=== PATIENT | male | born 1965 | race Caucasian/White ===

== ENCOUNTER 2019-12-31 13:30 | Inpatient (IN) | payer OTHER, MEDICAID, SELFPAY ==
[2019-12-31] VITALS (20 sets, daily range): BP systolic 162–245; BP diastolic 79–121; PULSE 77–109; RESP 14–22; TEMP 36.1–37; O2SAT 96–99; BMI 23.7
--- NOTE | 2019-12-31 13:31 | DI.CT.S_ITS ---
PROCEDURE: CT HEAD/BRAIN WO CON INDICATIONS: new onset seizure TECHNIQUE: Noncontrast 4.5 mm thick angled axial sections acquired from the foramen magnum to the vertex, with coronal and sagittal reformats. For radiation dose reduction, the following was used: automated exposure control, adjustment of mA and/or kV according to patient size. COMPARISON: None. FINDINGS: Image quality: Diagnostic. CSF spaces: Basal cisterns are patent. No extra-axial fluid collections. Ventricles are normal in size and shape. Brain: No midline shift. No intracranial masses or hemorrhage. Rich-white matter interface is normal. Subtle areas of low attenuation are seen within the periventricular and deep white matter of the supratentorial brain. Basal ganglia calcifications are present. Skull and face: Calvarium and visualized facial bones are intact, without suspicious lesions. Sinuses: Moderate mucosal thickening of the right maxillary sinus is present. Otherwise, the imaged paranasal sinuses and mastoid air cells are clear. IMPRESSION: 1. No acute intracranial hemorrhage. 2. Chronic small vessel ischemic changes. Dictated by: Jose Duckworth M.D. on 12/31/2019 at 12:56 Approved by: Jose Duckworth M.D. on 12/31/2019 at 12:57
[2019-12-31 13:48] LABS: Add Manual Diff / Slide Review NO; Basophils Absolute Auto 100 /uL (0-100); Eosinophils Absolute Auto 0 /uL (0-450); Eosinophils Percent Auto 0.3 % (2-4); Hematocrit 32.9 % (41-53); Hemoglobin 10.5 g/dL (13.5-17.5); Lymphocytes Absolute Auto 1700 /uL (1100-4500); Lymphocytes Percent Auto 25.4 % (25-40); Mean Corpuscular HGB Conc 31.9 % (30-36); Mean Corpuscular Hemoglobin 27.9 PG (26-34); Mean Corpuscular Volume 87.6 fL (80-100); Monocytes Absolute Auto 400 /uL (0-900); Monocytes Percent Auto 5.9 % (3-14); Neutrophils Absolute Auto 4400 /uL (1500-7000); Neutrophils Percent Auto 67.4 % (50-75); Platelet Count 213 X10^3/uL (150-400); Red Blood Cell Count 3.75 X10^6/uL (4.5-5.9); Red Cell Distribution Width 16.1 % (11.6-14.8); White Blood Cell Count 6.5 X10^3/uL (4.5-11.0)
[2019-12-31 14:02] LABS: BUN Creatinine Ratio 14.2 (6-22); Blood Urea Nitrogen 22 mg/dL (9-20); Carbon Dioxide 20 mmol/L (22-32); Chloride 110 mmol/L (98-107); Estimated Glomerular Filt Rate 46.6 mL/min (>60); Glucose 79 mg/dL (70-100); HEMOLYSIS < 15 (0-50); Potassium 3.7 mmol/L (3.4-5.1); Sodium 143 mmol/L (137-145)
[2019-12-31 14:19] LABS: Prolactin 24.5 ng/mL (3.7-17.9)
--- NOTE | 2019-12-31 14:37 | ED_ITS ---
HPI - Seizure General Chief Complaint: Seizure Stated Complaint: Decreased LOC Time Seen by Provider: 12/31/19 13:31 Source: patient and EMS Mode of arrival: EMS Limitations: no limitations History of Present Illness HPI Narrative: 54M former smoker, non drinker without known medical history presents by EMS after what sounds like a possible first-time seizure. Medics arrived to find the patient confused and moderately unresponsive but guarding his airway with high blood pressure only. Patient is homeless and was apparently resting on a chair of a person in the neighborhood and they had left him alone for short period and came back to find him unresponsive with some blood coming from his mouth. There is no obvious trauma or fall. The patient denies any alcohol history or recent trauma. By the time they arrived here in the emergency department patient was largely back at his baseline suggesting his unresponsive episode was a postictal phase. MD complaint: possible seizure Onset (ago): minute(s) Description of Episode: loss of consciousness Witnessed: no Trauma: No Seizure History: other Place: home Possible Precipitating Event: none Associated symptoms: denies other symptoms Treatments prior to arrival: none Related Data Allergies Allergy/AdvReac Type Severity Reaction Status Date / Time No Known Drug Allergies Allergy Verified 12/31/19 13:35 Review of Systems Constitutional Constitutional: Denies chills, Denies fatigue, Denies fever(s), Denies frequent falls, Denies lethargy and Denies weakness Eyes Eyes: Denies change in vision, Denies eye discharge, Denies irritation and Denies loss of vision ENT Ears, Nose, Mouth, and Throat: Denies change in voice, Denies dizziness, Denies neck pain, Denies sore throat and Denies throat swelling Cardiovascular Cardiovascular: Denies chest pain, Denies irregular heart rhythm, Denies lightheadedness, Denies palpitations, Denies dyspnea, Denies dyspnea on exertion and Denies orthopnea Respiratory Respiratory: Denies cough, Denies dyspnea, Denies dyspnea on exertion and Denies wheezing Gastrointestinal Gastrointestinal: Denies abdominal pain, Denies change in bowel habits, Denies diarrhea, Denies nausea and Denies vomiting Genitourinary Genitourinary: Denies hematuria, Denies flank pain, Denies urinary incontinence and Denies urinary urgency Musculoskeletal Musculoskeletal: Denies back pain, Denies muscle weakness, Denies neck pain, Denies numbness and Denies tingling Integumentary/Breasts Skin/Breast: Denies pruritus, Denies erythema, Denies rash and Denies wounds Neurologic Neurologic: Denies behavioral changes, Denies confusion, Denies dizziness, Denies frequent falls, Denies loss of vision, Denies numbness, Reports seizure- like activity, Denies tingling and Denies weakness Psychiatric Psychiatric: Denies anxiety, Denies behavioral changes, Denies confusion, Denies depression, Denies homicidal ideation and Denies suicidal ideation Endocrine Endocrine: Denies fatigue, Denies flushing and Denies palpitations Hematologic/Lymphatic Hematologic/Lymphatic: Denies easy bruising Allergic/Immunologic Allergic/Immunologic: Denies urticaria, Denies throat swelling and Denies wheezing Patient History Social History Smoking Status: Current every day smoker Smoking Status: Current every day smoker alcohol intake frequency: holidays/special occasions only Substance Use Type: does not use Exam Narrative Exam Narrative: GENERAL: [54] year old patient appears stated age. Well- nourished, well-developed patient, in mild distress. HEAD: Atraumatic. Normocephalic. EYES: Pupils equal round and reactive. Extraocular motions intact. No scleral icterus. No injection or drainage. ENT: Poor dentition throughout, dried blood on lower lip. Nose without bleeding, purulent drainage. Throat without erythema, tonsillar hypertrophy or exudate. Airway patent. NECK: Trachea midline. Non tender CARDIOVASCULAR: Regular rate and rhythm without murmurs, gallops, or rubs. RESPIRATORY: Clear to auscultation. Breath sounds equal bilaterally. No wheezes, rales, or rhonchi. GASTROINTESTINAL: Abdomen soft, non-tender, nondistended. EXTREMITIES: No edema or joint tenderness. BACK: Nontender without deformity or crepitance. No flank tenderness. NEURO: AOx3. SKIN: No rash or erythema of visible areas Initial Vital Signs Initial Vital Signs: Vital Signs Temperature 98.6 F 12/31/19 13:30 Pulse Rate 97 H 12/31/19 13:30 Respiratory Rate 14 12/31/19 13:30 Blood Pressure 245/121 H 12/31/19 13:30 Pulse Oximetry 98 12/31/19 13:30 Scores GCS Elmo coma scale eye opening: Spontaneous [place] coma scale verbal response: Confused [place] coma scale motor response: Obey commands [place] coma scale total score: 14 Course Course Course Narrative: Patient appears to have had a seizure with no obvious cause though critically elevated blood pressure must be considered. Patient continues to be slightly confused, with repetitive questioning, ongoing headache. He was given labetalol which did not but his blood pressure at all. He does have neurologic symptoms as well as a creatinine up to 1.5. Nicardipine ordered and patient admitted for HTN encephalopathy Orders Ordered: ED Orders 12/31/19 13:31 CT head/brain wo con Stat 12/31/19 13:38 Basic Metabolic Panel Stat Complete Blood Count AUTO DIFF Stat Prolactin Stat 12/31/19 14:35 Urinalysis and Microscopic Stat Nicardipine HCl 25 mg/ Sodium (Chloride) 250 mls @ 50 mls/hr IV TITRATE RAMIN; Protocol Last Admin: 12/31/19 16:12 Dose: 5 mg/hr, 50 mls/hr Documented by: GARFIELD Discontinued Medications Acetaminophen (Tylenol) 975 mg PO NOW ONE Stop: 12/31/19 15:56 Last Admin: 12/31/19 16:11 Dose: 975 mg Documented by: GARFIELD Labetalol HCl (Trandate) 10 mg IV NOW ONE Stop: 12/31/19 15:08 Last Admin: 12/31/19 15:15 Dose: 10 mg Documented by: GARFIELD Vital Signs Vital signs: Vital Signs - 8 hr 12/31/19 13:30 12/31/19 13:31 12/31/19 13:51 Temperature 98.6 F Pulse Rate 97 H 97 H 96 H Respiratory Rate 14 20 16 Blood Pressure 245/121 H Blood Pressure [Left Arm] 245/121 H 242/117 H Pulse Oximetry 98 97 99 12/31/19 15:09 12/31/19 15:15 12/31/19 15:45 Temperature Pulse Rate 94 H 88 77 Respiratory Rate 21 Blood Pressure 239/115 H 209/109 H Blood Pressure [Left Arm] 242/117 H Pulse Oximetry 98 12/31/19 15:46 Temperature Pulse Rate Respiratory Rate Blood Pressure Blood Pressure [Left Arm] 219/109 H Pulse Oximetry MDM - Seizure Lab Data Result diagrams: 12/31/19 13:38 12/31/19 13:38 Labs: Lab Results 12/31/19 12/31/19 12/31/19 Range/Units 13:38 13:38 14:35 WBC 6.5 (4.5-11.0) X10^3/uL RBC 3.75 L (4.5-5.9) X10^6/uL Hgb 10.5 L (13.5-17.5) g/dL Hct 32.9 L (41-53) % MCV 87.6 (80-100) fL MCH 27.9 (26-34) PG MCHC 31.9 (30-36) % RDW 16.1 H (11.6-14.8) % Plt Count 213 (150-400) X10^3/uL Neut % (Auto) 67.4 (50-75) % Lymph % (Auto) 25.4 (25-40) % [place] % (Auto) 5.9 (3-14) % Eos % (Auto) 0.3 L (2-4) % Baso % (Auto) 1.0 (0-2) % Neut # (Auto) 4400 (7136-7107) /uL Lymph # (Auto) 1700 (3284-6149) /uL [place] # (Auto) 400 (0-900) /uL Eos # (Auto) 0 (0-450) /uL Baso # (Auto) 100 (0-100) /uL Sodium 143 (137-145) mmol/L Potassium 3.7 (3.4-5.1) mmol/L Chloride 110 H (98-107) mmol/L Carbon Dioxide 20 L (22-32) mmol/L BUN 22 H (9-20) mg/dL Creatinine 1.55 H (0.66-1.25) mg/dL Estimated GFR 46.6 L (>60) mL/min BUN/Creatinine Ratio 14.2 (6-22) Glucose 79 (70-100) mg/dL Calcium 9.0 (8.4-10.2) mg/dL Prolactin 24.5 H (3.7-17.9) ng/mL Urine Color Yellow Urine Appearance Clear Urine pH 7.0 (4.5-8.0) Ur Specific [place] 1.020 (1.000-1.035) Urine Protein 2+ H (Negative) Urine Glucose (UA) Negative (Negative) g/dL Urine Ketones Negative (NEGATIVE) Urine Occult Blood 1+ H (Negative) Urine Nitrate Negative (Negative) Urine Bilirubin Negative (NEGATIVE) Urine Urobilinogen 0.2 (0.2) E.U./dL Ur Leukocyte Esterase Negative (NEGATIVE) Urine RBC 0-1/hpf (0-5/HPF) Urine WBC None seen (0-5/HPF) Urine Bacteria Occasional (0-1) (None) Urine Sperm Ur Culture Indicated? Cult not indicated Imaging Data CT scan - head: Radiologist's Impression: Chart Viewer Diagnostics DATE TYPE STATUS AUTHOR Hx 12/31/19 13:31 Mac DuckworthdidiGuicho Dewitt, M1 ADM [place], [facility] ED R01 180.34cm 77.111kg BMI: 23.7kg/m? Search Chart No Data to Display No Data to Display ONSET Today 17:09 Guicho Aguilera M 1965 [place] [address] CT Scan Report Signed Patient: Guicho AguileraMR#: [id number] : 1965Acct:[id number] Age/Sex: 54 / MDate of Service: 12/31/19 Loc: ED Accession Number: [id number] Procedure: CT head/brain wo con Ordering Provider: Norberto Sharp D.O. PROCEDURE: CT HEAD/BRAIN WO CON INDICATIONS: new onset seizure TECHNIQUE: Noncontrast 4.5 mm thick angled axial sections acquired from the foramen magnum to the vertex, with coronal and sagittal reformats. For radiation dose reduction, the following was used: automated exposure control, adjustment of mA and/or kV according to patient size. COMPARISON: None. FINDINGS: Image quality: Diagnostic. CSF spaces: Basal cisterns are patent. No extra-axial fluid collections. Ventricles are normal in size and shape. Brain: No midline shift. No intracranial masses or hemorrhage. Rich-white matter interface is normal. Subtle areas of low attenuation are seen within the periventricular and deep white matter of the supratentorial brain. Basal ganglia calcifications are present. Skull and face: Calvarium and visualized facial bones are intact, without suspicious lesions. Sinuses: Moderate mucosal thickening of the right maxillary sinus is present. Otherwise, the imaged paranasal sinuses and mastoid air cells are clear. IMPRESSION: 1. No acute intracranial hemorrhage. 2. Chronic small vessel ischemic changes. Dictated by: Jose Duckworth M.D. on 12/31/2019 at 12:56 Approved by: Jose Duckworth M.D. on 12/31/2019 at 12:57 Discharge Plan Departure Patient Disposition: Admitted As Inpatient Clinical Impression: Encephalopathy, hypertensive Admit Date/Time: 12/31/19 16:15 Admit Provider: Jose Alfredo Palomino ED Sign-out Cosign ED Attending Cosignature Attestation: I was immediately available in the department for consultation. This documentation has been reviewed and I agree with assessment and plan. Supervised by Norberto Sharp DO
[2019-12-31 14:49] LABS: WBC Urine None Seen (0-5/HPF)
[2019-12-31 14:50] LABS: Appearance Urine UA CLEAR; Bilirubin Urine UA NEGATIVE (NEGATIVE); Color Urine UA YELLOW; Glucose Urine UA NEGATIVE (Negative); Ketones Urine UA NEGATIVE (NEGATIVE); Leukocyte Esterase Urine UA NEGATIVE (NEGATIVE); Nitrite Urine UA NEGATIVE (Negative); Occult Blood Urine UA 1+ (Negative); Protein Urine UA 2+ (Negative); Urobilinogen Urine UA 0.2 E.U./dL (0.2)
[2019-12-31 14:58] LABS: Bacteria Urine Occasional (0-1); RBC Urine 0-1/HPF (0-5/HPF)
[2019-12-31 14:59] LABS: Culture Indicated Urine Cult Not Indicated
[2019-12-31] MEDS: LABETALOL 20 MG/4 ML SYRINGE 10 MG IV (15:15)
[2019-12-31] MEDS: ACETAMINOPHEN 325 MG TABLET 975 MG PO (16:11)
[2019-12-31] MEDS: NICARDIPINE 25 MG in SODIUM CHLORIDE 0.9% 240 ML 50 ML IV (16:12)
--- NOTE | 2019-12-31 17:02 | PC.NURSE ---
Pt is sleeping. Chest rise and fall observed
--- NOTE | 2019-12-31 18:55 | PC.NURSE ---
1830- Patient admitted to room 228. Patient is alert and oriented to self. Patient responding to questions. BP 222/103 Nicardipine increased. BP rechecked now 195/82. Lungs are clear to auscultation no distress noted. Seizure pads on bed, Call light given to patient. Bed alarm is on.
--- NOTE | 2019-12-31 20:00 | P.HP_ITS ---
History of Present Illness History of Present Illness Date Patient Seen: 12/31/19 Time Patient Seen: 20:00 Chief complaint: Decreased LOC Narrative: This is a 54-year-old male found unresponsive on a chair either in a friend's yard or a friend's garage. The story has several different versions and the patient is unable to recall any details to clarify. In the emergency department the record states that he was found by someone in the neighborhood sitting in a chair. Additional information is that he was living in someone's garage and when they returned home after a short time away they found him unresponsive. There was no seizures observed and by the time the paramedics arrived he was apparently beginning to behave in a postictal fashion. He was noted to have extremely high blood pressures and so has been tried on labetalol and then a nicardipine drip to bring the blood pressure's down. He continues to be quite confused. He says he has been homeless for about 3 years and lives in no particular location. This contradicts the reports that he is living in someone's garage. He admits to running out of lisinopril 2 days ago and says that he thinks he takes about 5 medications total and ran out of all of them, stopping them simply because he did not get to the point of asking for a refill yet. He is unable to remember the name of his local physician but remembers that it is a female physician in the local community. He knows he has a history of hypertension but cannot recall any other medical history. He says he has had a stroke in the past but has no residual effects. His mother of complications from a stroke. He has no history of seizures or heart disease. The 1st thing he can remember is waking up here in the hospital. He has no recollection of any events today or yesterday. He denies alcohol use on a regular basis saying that he drinks ?hardly at all. He smokes an occasional cigarette along with marijuana and denies all other drugs, specifically denying IV drug use. He appears to have a soft heart murmur that he does not recall hearing about before. He repeatedly falls asleep in a manner typical for a drug ged stupor or a postictal state. He will need a urine drug screen and alcohol level. His workup so far is notable for a negative head CT, mild anemia with a hemoglobin of 10.5 and CKD 3. Further testing including liver function and ammonia levels will be obtained. His prolactin level is slightly elevated for unclear reasons. Patient History Medical History (Updated 12/31/19 @ 20:13 by Joes A Pace MD) CVA (cerebral vascular accident) (Acute) Hypertension (Acute) Surgical History (Updated 12/31/19 @ 20:13 by Jose A Pace MD) History of right inguinal hernia repair (Acute) Family & Social History Family History (Updated 12/31/19 @ 20:14 by Jsoe A Pace MD) Mother CVA (cerebral vascular accident) Father No problems noted. Sister COPD (chronic obstructive pulmonary disease) Social History: household members none Prior Living Arrangements Homeless Safety & Behavioral: Feels Safe in Current Yes Environment Been Physically Hurt or No Threatened By a Person Suicidal Ideation Description None Suicide Plan Description No Plan Tobacco & Substance use: Smoking Status Current every day smoker alcohol intake frequency holiday/special occasion Substance Use Type does not use Comment: He says he drinks alcohol ?hardly at all.? He says he smokes an occas ional cigarette and also marijuana. His backup decision maker is his sister Yulissa Aguilera who lives in [place]. He denies any use of injectable or other illicit drugs. 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 He is unable to articulate his reasons for being homeless. He apparently lives in [place] because he ?has friends here.? Meds Home Medications and Allergies Allergies Allergy/AdvReac Type Severity Reaction Status Date / Time No Known Drug Allergies Allergy Verified 12/31/19 13:35 Review of Systems Review of Systems Narrative: Positive for confusion and headache Negative for fevers, chills, sweats, coughing, chest pain, abdominal pain, nausea, vomiting, rash, bleeding, dysuria, trouble walking, new allergies. ROS: Yes All systems reviewed with the patient and are negative except as oth erwise documented Exam Vital Signs (past 8 hours): - 12/31/19 13:30 12/31/19 13:31 12/31/19 13:51 Temperature 98.6 F Pulse Rate 97 H 97 H 96 H Respiratory Rate 14 20 16 Blood Pressure 245/121 H Blood Pressure [Left Arm] 245/121 H 242/117 H Pulse Oximetry 98 97 99 03/21/20 15:09 12/31/19 15:15 12/31/19 15:45 Temperature Pulse Rate 94 H 88 77 Respiratory Rate 21 Blood Pressure 239/115 H 209/109 H Blood Pressure [Left Arm] 242/117 H Pulse Oximetry 98 12/31/19 15:46 12/31/19 16:59 12/31/19 17:09 Temperature Pulse Rate 77 91 H Respiratory Rate 20 20 Blood Pressure Blood Pressure [Left Arm] 219/109 H 209/99 H 192/93 H Pulse Oximetry 96 99 12/31/19 17:42 12/31/19 18:30 12/31/19 18:45 Temperature 97.0 F L Pulse Rate 86 86 87 Respiratory Rate 22 Blood Pressure 194/107 H 195/102 H Blood Pressure [Left Arm] 175/88 H Pulse Oximetry 12/31/19 19:00 Temperature Pulse Rate 86 Respiratory Rate Blood Pressure 181/84 H Blood Pressure [Left Arm] Pulse Oximetry Oxygen Delivery Method Room Air Narrative Exam Narrative: He is alert and oriented x3 but frequently falls back asleep and does not seem to process/answer the whole question. He seems to be quite engaging and personable. He is in no apparent distress. Pupils are equally round and reactive to light and accommodation. Extraocular muscles are intact. Sclerae are pink and nonicteric. Throat looks normal. No lymph nodes are felt head, neck, supraclavicular area. There is no JVD. No carotid bruits are heard. Heart is regular rate and rhythm with a 1/6 systolic ejection murmur. Lungs are clear to auscultation bilaterally. Extremities have no ankle edema. Abdomen is soft, nontender, no organomegaly. There is very mild but reproducible right lower quadrant tenderness. Skin has no rash or jaundice. There are no needle alegria or picking scabs seen. Neuro exam motor function is 5/5 throughout without hyper reflexia. His responses are exaggerated to touch. Babinski's are downgoing bilaterally. There is no tremor. Gait and balance are not tested. Cranial nerves 2-12 test intact. Objective Labs Result Diagrams: 12/31/19 13:38 12/31/19 13:38 Labs: Laboratory Results - last 24 hr 12/31/19 12/31/19 12/31/19 13:38 13:38 14:35 WBC 6.5 RBC 3.75 L Hgb 10.5 L Hct 32.9 L MCV 87.6 MCH 27.9 MCHC 31.9 RDW 16.1 H Plt Count 213 Neut % (Auto) 67.4 Lymph % (Auto) 25.4 [place] % (Auto) 5.9 Eos % (Auto) 0.3 L Baso % (Auto) 1.0 Neut # (Auto) 4400 Lymph # (Auto) 1700 [place] # (Auto) 400 Eos # (Auto) 0 Baso # (Auto) 100 Sodium 143 Potassium 3.7 Chloride 110 H Carbon Dioxide 20 L BUN 22 H Creatinine 1.55 H Estimated GFR 46.6 L BUN/Creatinine Ratio 14.2 Glucose 79 Calcium 9.0 Prolactin 24.5 H Urine Color Yellow Urine Appearance Clear Urine pH 7.0 Ur Specific [place] 1.020 Urine Protein 2+ H Urine Glucose (UA) Negative Urine Ketones Negative Urine Occult Blood 1+ H Urine Nitrate Negative Urine Bilirubin Negative Urine Urobilinogen 0.2 Ur Leukocyte Esterase Negative Urine RBC 0-1/hpf Urine WBC None seen Urine Bacteria Occasional (0-1) Urine Sperm Ur Culture Indicated? Cult not indicated Assessment & Plan Assessment & Plan narrative: Hypertensive encephalopathy, acute, present on admission -head CT normal, BMP and CBC without clues. -obtain liver function tests, ammonia level, urine drug screen and alcohol level this evening. -his encephalopathy is suggestive of a postictal state versus a drug or alcohol induced stupor -begin Keppra pending further evaluation. -control blood pressure initially with nicardipine drip and then transition back to oral hypertensives -as his mentation clears he may recall more details including his medication doses and names. Paroxysmal hypertensive crisis, acute, present on admission -continue nicardipine and transition back to oral antihypertensives soon. -as his mentation clears he may recall more details including his medication doses and names. Hypertension, chronic, present on admission -unclear status of usual blood pressure control and current medication approach. -research his physician outpatient records when he can recall more information about which office he attends Anemia, acuity unclear, present on admission -no prior CBC available and he does not acknowledge any prior history of anemia -hemoglobin 10.5, repeat 12/31 -he may need GI workup Chronic kidney disease type 3 -likely to be hypertensive in origin, continue blood pressure control efforts. Homelessness -apparently he has acquaintances/friends who allow him to live in their garage? -he does not acknowledge any mental health condition or substance abuse condition that would predispose to homelessness. He cannot articulate, this evening, his reasons for living on the streets the last 3 years.
[2019-12-31] MEDS: SODIUM CHLORIDE 0.9% 1,000 ML 75 ML IV (20:51)
[2019-12-31] MEDS: ONDANSETRON 4 MG/2 ML INJ IV (21:39)
[2019-12-31 21:45] LABS: Ammonia (NH3) < 9 umol/L (9-30)
[2019-12-31 21:46] LABS: Alanine Aminotransferase 34 IU/L (<50); Albumin 3.9 g/dL (3.5-5.0); Albumin Globulin Ratio 0.9 (1.0-2.8); Alkaline Phosphatase 120 U/L (38-126); Aspartate Aminotransferase 58 IU/L (17-59); BUN Creatinine Ratio 15.8 (6-22); Bilirubin Total 0.6 mg/dL (0.2-1.3); Blood Urea Nitrogen 22 mg/dL (9-20); Calcium 8.7 mg/dL (8.4-10.2); Carbon Dioxide 24 mmol/L (22-32); Chloride 109 mmol/L (98-107); Estimated Glomerular Filt Rate 52.9 mL/min (>60); Ethanol (ETOH) < 10 mg/dL; Globulin 4.3 g/dL (1.7-4.1); Glucose 84 mg/dL (70-100); HEMOLYSIS < 15 (0-50); Potassium 3.8 mmol/L (3.4-5.1); Sodium 140 mmol/L (137-145); Total Protein 8.2 g/dL (6.3-8.2)
[2019-12-31 22:13] LABS: UR Morphine/Opiate cutoff 300 Negative (Negative); Ur Creatinine Normal (Normal); Ur Specific Gravity Normal (Normal); Urine Amphetamines Negative (Negative); Urine Cocaine Negative (Negative); Urine Tetrahydrocannabinol Positive (Negative); Urine pH Normal (Normal)
[2019-12-31 22:14] LABS: Urine Barbiturates Negative (Negative); Urine Benzodiazepines Negative (Negative); Urine MDMA Negative (Negative); Urine Methadone Negative (Negative); Urine Methamphetamines Positive (Negative); Urine Oxycodone Negative (Negative); Urine Phencyclidine Negative (Negative); Urine Tricyclic Antidepressant Negative (Negative)
--- NOTE | 2019-12-31 22:49 | DI.ECHO.S_ITS ---
[facility] +---------+ : : [address] : : : : [id number] : : : : Phone: [phone]+ Echocardiogram Report + + :Name: EMMETT FRANCO Study Date: 01/01/2020 Height: 71 in : :[facility] Weight: 170 lb : : Gender: Male BSA: 2.0 m2 : :: 1965 Age: 54 yrs BP: 154/78 mmHg: :Reason For Study: MURMUR : :Ordering Physician: Dr. Gar : :Sanjeev Performed By: Isabelle Marie : :Referring: Jose A WILKINS E : + + Interpretation Summary Left ventricular wall thickness is mild-moderately increased. The left ventricular ejection fraction is normal. There is mild flow acceleration in the left ventricular outflow tract (LVOT) without obstruction which can cause murmur. Otherwise no hemodynamically significant valvular abnormalities. Procedure: A two-dimensional transthoracic echocardiogram with color flow and Doppler was performed. There is no prior echocardiogram noted for this patient. The study quality was technically adequate. The patient was in normal sinus rhythm during the exam. Left Ventricle: The left ventricle is normal in size. Proximal septal thickening is noted. The LVOT velocity is 1.4 m/s. The left ventricular outflow velocity with valsalva is 1.85. Left ventricular wall thickness is mild-moderately increased. The ejection fraction is estimated to be 65-70%. The left ventricular ejection fraction is normal. Global longitudinal peak systolic strain is normal at -18.1%. Diastolic parameters suggest a relaxation abnormality of the left ventricle, consistent with probable normal filling pressures. Right Ventricle: The right ventricle is normal in size and function. Atria: The left atrium is mildly dilated. Right atrial size is normal. There is no Doppler evidence for an interatrial shunt. Mitral Valve: The mitral valve leaflets appear mildly thickened, but open well. There is mild to moderate mitral annular calcification. There is mild mitral regurgitation. Aortic Valve: The aortic valve is trileaflet. The aortic valve opens well. There is mild aortic valve sclerosis. There is no aortic valve stenosis. No aortic regurgitation is present. Tricuspid Valve: The tricuspid valve is normal in structure and function. There is trace tricuspid regurgitation. Pulmonary artery pressures cannot be estimated because of the lack of a measurable TR jet velocity but the IVC suggests a CVP of around 3 mmHg. Pulmonic Valve: The pulmonic valve is normal in structure and function. There is trace pulmonic regurgitation. Great Vessels: The aortic root is normal size. The ascending aorta is mildly enlarged. The IVC is of normal diameter and collapses greater than 50% with a sniff. This suggests a low right atrial pressure of 3 mm Hg. Pericardium/ Pleura There is no pericardial effusion. There is no pleural effusion. MMode/2D Measurements & Calculations LVIDd: 5.1 cm LVOT diam: 2.1 cm LVIDs: 3.6 cm Ao root diam: 3.4 cm FS: 29.6 % asc Aorta Diam: 3.8 cm EPSS: 0.67 cm IVSd: 1.3 cm LVPWd: 1.3 cm LV melendez. diameter/BSA (cm/m^2): 2.6 LV sys. diameter/BSA (cm/m^2): 1.8 LA A2 area: 20.7 cm2 RA long axis: 5.0 cm LA A4 area: 20.7 cm2 RA area: 15.0 cm2 LA length (vol): 5.1 cm RA vol: 38.1 ml LA vol: 71.7 ml RA : 19.4 ml/m2 LA vol index: 36.4 ml/m2 IVC diam: 1.4 cm RVD1 (basal): 3.5 cm TAPSE: 2.6 cm Doppler Measurements & Calculations Ao V2 max: 152.8 cm/sec LVOT Max Morgan: 145.1 cm/sec Ao V2 mean: 104.9 cm/sec LV V1 max P.4 mmHg Ao max P.3 mmHg LV V1 VTI: 29.6 cm Ao mean P.9 mmHg XANDER(I,D): 3.5 cm2 Ao V2 VTI: 29.0 cm XANDER(V,D): 3.2 cm2 sev ratio: 1.0 XANDER indexed to BSA (cm^2/m^2): 1.8 MV E max morgan: 90.2 cm/sec PA V2 max: 133.5 cm/sec MV A max morgan: 113.8 cm/sec PA V2 mean: 88.7 cm/sec MV E/A: 0.79 PA mean P.7 mmHg Med Peak E' Morgan: 3.6 cm/sec PA pr(Accel): 15.2 mmHg E/E' med: 25.2 PA Accel Time: 0.13 sec Lat Peak E' Morgan: 6.3 cm/sec E/E' lat: 14.3 E/e' average: 19.7 MV dec time: 0.19 sec MV P1/2t: 57.8 msec MV P1/2t max morgan: 91.2 cm/sec SV(LVOT): 100.6 ml MVA(2t): 3.8 cm2 Electronically signed by: James Alvarado M.D. on Reading Physician:01/01/2020 12:52 PM
[2019-12-31] MEDS: levETIRAcetam 250 MG TABLET 500 MG PO (23:51)
[2020-01-01] VITALS (25 sets, daily range): BP systolic 149–210; BP diastolic 72–106; PULSE 66–95; RESP 10–18; TEMP 36.1–36.9; O2SAT 97–99
[2020-01-01] MEDS: NICARDIPINE 25 MG in SODIUM CHLORIDE 0.9% 240 ML 25 ML IV ×2 (00:47→13:30)
[2020-01-01 05:21] LABS: Add Manual Diff / Slide Review NO; Basophils Absolute Auto 100 /uL (0-100); Basophils Percent Auto 1.1 % (0-2); Eosinophils Absolute Auto 100 /uL (0-450); Eosinophils Percent Auto 1.3 % (2-4); Hematocrit 31.9 % (41-53); Hemoglobin 10.3 g/dL (13.5-17.5); Lymphocytes Absolute Auto 2200 /uL (1100-4500); Lymphocytes Percent Auto 30.8 % (25-40); Mean Corpuscular HGB Conc 32.4 % (30-36); Mean Corpuscular Hemoglobin 27.9 PG (26-34); Mean Corpuscular Volume 86.3 fL (80-100); Monocytes Absolute Auto 500 /uL (0-900); Monocytes Percent Auto 6.7 % (3-14); Neutrophils Absolute Auto 4300 /uL (1500-7000); Neutrophils Percent Auto 60.1 % (50-75); Platelet Count 210 X10^3/uL (150-400); Red Cell Distribution Width 16.1 % (11.6-14.8); White Blood Cell Count 7.1 X10^3/uL (4.5-11.0)
[2020-01-01 05:31] LABS: Alanine Aminotransferase 32 IU/L (<50); Albumin 3.7 g/dL (3.5-5.0); Albumin Globulin Ratio 0.9 (1.0-2.8); Alkaline Phosphatase 117 U/L (38-126); Aspartate Aminotransferase 54 IU/L (17-59); BUN Creatinine Ratio 15.4 (6-22); Bilirubin Total 0.6 mg/dL (0.2-1.3); Blood Urea Nitrogen 21 mg/dL (9-20); Calcium 8.6 mg/dL (8.4-10.2); Carbon Dioxide 23 mmol/L (22-32); Chloride 112 mmol/L (98-107); Estimated Glomerular Filt Rate 54.2 mL/min (>60); Globulin 4.2 g/dL (1.7-4.1); Glucose 74 mg/dL (70-100); HEMOLYSIS < 15 (0-50); Potassium 3.5 mmol/L (3.4-5.1); Sodium 140 mmol/L (137-145); Total Protein 7.9 g/dL (6.3-8.2)
[2020-01-01] MEDS: ENOXAPARIN 40 MG/0.4 ML SYRINGE SUBCUT (09:22)
[2020-01-01] MEDS: levETIRAcetam 250 MG TABLET 500 MG PO ×2 (09:22→21:01)
[2020-01-01] MEDS: NICOTINE 14 PATCH 14 MG TOP (09:22)
[2020-01-01] MEDS: ASPIRIN EC 81 MG TABLET PO (09:23)
[2020-01-01] MEDS: ATORVASTATIN 20 MG TABLET 40 MG PO (09:23)
[2020-01-01] MEDS: BUPRENORPHINE/NALOXONE 8MG/2MG 1 TAB 3 TAB SL (10:45)
[2020-01-01] MEDS: lisinopriL 20 MG TABLET PO ×2 (10:45→21:01)
[2020-01-01] MEDS: ONDANSETRON 4 MG/2 ML INJ IV ×2 (13:39→17:20)
[2020-01-01] MEDS: ACETAMINOPHEN 325 MG TABLET 650 MG PO (13:40)
--- NOTE | 2020-01-01 14:22 | CM.DPC ---
Addendum entered by Jossy Dumont R.N. 01/01/20 14:47: CM/Rn called [facility] to work on maybe getting patient a hotel voucher for 14 days at D/C to help patient with recovery and help with social isolation for protection from Covid-19- CM/Rn left voice message at [phone] and will check in with them again tomorrow and work on hotel voucher for patient at D/C. Jossy Dumont RN Original Note: DCP Assessment: EMR reviewed: Patient is a 54 yr old male who was admitted for Hypertensive encephalopathy. CM/RN met with patient at the bedside and explained role. Patient was alert and oriented x3 at time of CM/RN visit. Patient states he is independent with all ADLs and could drive if he had a car. Patient is currently homeless but stays at [facility] periodically. Patient states he has no memory of being in someone garage. Patient says I have attempted to work with [employer] and do not qualify for [employer] since I not disabled. CM/Rn asked if patient uses any Drugs or alcohol patient stated he does not take any drugs including marijuana but his toxicology screen came back positive for Marijuana and Methamphetamines. Patient states he has not family or anyone he would consider really close who could help him. CM/Rn will give patient information about homeless resources available to him as well as information about homeless shelters. I Medicaid and Count includes the [facility] Care Plan: D/C plan needed- will attempt [employer] application to help with getting a bottle caser and will give patient homeless information resources- CM will also look into Homeless hotel voucher for patient since he is at high risk for Covid-19 with is health issues. D/C plan working on developing. Jossy Dumont RN Discharge Planning/Care Management CM Discharge Assessment Start: 01/01/20 14:13 Freq: Status: Active Protocol: Document 01/01/20 14:13 (Rec: 01/01/20 14:14 [id number]) Discharge Planning Assessment Assigned Voting Machine Mechanic Jossy Dumont RN Advance Directives? No Advance Directives on File No History Provided By Patient,Medical Record Has Patient been admitted in last 30 No days? Prior Living Arrangements Homeless Comment Currently lives in friends garage. Household Members none Type of transporation used prior to Drives own vehicle admit Independent with ADL's Yes Is patient alert and oriented? Yes Discharge Plan Homeless Jail Whiteboard Updated in Patient Room with Yes name and ext. # of Voting Machine Mechanic Review Status In Process Next Review Type Continued Stay Review
[2020-01-01] MEDS: BUPRENORPHINE/NALOXONE 8MG/2MG 1 TAB SL ×2 (14:42→17:56)
--- NOTE | 2020-01-01 15:07 | P.PN_ITS ---
Subjective Subjective Date Patient Seen: 01/01/20 Interval history: Patient is 54-year-old homeless male admitted with hypertensive crisis and altered mental status after having gone without his medications for several days. He has seizure history and may have been postictal as well. Today he has been awake, cooperative and has no pressing complaints. He is still on low-dose of nicardipine drip and started back on routine meds this a.m.. Exam Vital Signs (past 8 hours): - 01/01/20 08:00 01/01/20 09:00 01/01/20 10:00 Temperature 98.5 F 98.5 F Pulse Rate 95 H 79 82 Respiratory Rate 15 12 16 Blood Pressure 160/85 H 167/83 H 149/79 H Pulse Oximetry 98 97 98 01/01/20 10:45 01/01/20 11:16 01/01/20 12:00 Temperature 97.8 F Pulse Rate 81 84 Respiratory Rate 18 18 Blood Pressure 165/73 H 154/72 H 166/91 H Pulse Oximetry 97 99 01/01/20 13:00 01/01/20 14:08 Temperature Pulse Rate 77 78 Respiratory Rate 17 12 Blood Pressure 164/90 H 178/89 H Pulse Oximetry 97 98 Oxygen Delivery Method Room Air Oxygen Flow Rate 0 Narrative Exam Narrative: General: Alert, pleasant and cooperative male NAD Objective Labs Result Diagrams: 01/01/20 05:03 01/01/20 05:03 Labs: Laboratory Results - last 24 hr 12/31/19 12/31/19 12/31/19 18:30 21:22 21:22 WBC RBC Hgb Hct MCV MCH MCHC RDW Plt Count Neut % (Auto) Lymph % (Auto) O'Brien % (Auto) Eos % (Auto) Baso % (Auto) Neut # (Auto) Lymph # (Auto) O'Brien # (Auto) Eos # (Auto) Baso # (Auto) Sodium 140 Potassium 3.8 Chloride 109 H Carbon Dioxide 24 BUN 22 H Creatinine 1.39 H Estimated GFR 52.9 L BUN/Creatinine Ratio 15.8 Glucose 84 Calcium 8.7 Total Bilirubin 0.6 AST 58 ALT 34 Alkaline Phosphatase 120 Ammonia Total Protein 8.2 Albumin 3.9 Globulin 4.3 H Albumin/Globulin Ratio 0.9 L Nasal Screen MRSA (PCR) Negative for mrsa U Opiates 300ng/mL cut Ur Oxycodone Screen Urine Methadone Screen Ur Barbiturates Screen U Tricyclic Antidepress Ur Phencyclidine Scrn Ur Amphetamines Screen U Methamphetamines Scrn Ur MDMA Scrn (Ecstasy) U Benzodiazepines Scrn Urine Cocaine Screen U Marijuana (THC) Screen Ethyl Alcohol < 10 12/31/19 12/31/19 01/01/20 21:22 22:06 05:03 WBC 7.1 RBC 3.70 L Hgb 10.3 L Hct 31.9 L MCV 86.3 MCH 27.9 MCHC 32.4 RDW 16.1 H Plt Count 210 Neut % (Auto) 60.1 Lymph % (Auto) 30.8 O'Brien % (Auto) 6.7 Eos % (Auto) 1.3 L Baso % (Auto) 1.1 Neut # (Auto) 4300 Lymph # (Auto) 2200 O'Brien # (Auto) 500 Eos # (Auto) 100 Baso # (Auto) 100 Sodium Potassium Chloride Carbon Dioxide BUN Creatinine Estimated GFR BUN/Creatinine Ratio Glucose Calcium Total Bilirubin AST ALT Alkaline Phosphatase Ammonia < 9 L Total Protein Albumin Globulin Albumin/Globulin Ratio Nasal Screen MRSA (PCR) U Opiates 300ng/mL cut Negative Ur Oxycodone Screen Negative Urine Methadone Screen Negative Ur Barbiturates Screen Negative U Tricyclic Antidepress Negative Ur Phencyclidine Scrn Negative Ur Amphetamines Screen Negative U Methamphetamines Scrn Positive H Ur MDMA Scrn (Ecstasy) Negative U Benzodiazepines Scrn Negative Urine Cocaine Screen Negative U Marijuana (THC) Screen Positive H Ethyl Alcohol 01/01/20 05:03 WBC RBC Hgb Hct MCV MCH MCHC RDW Plt Count Neut % (Auto) Lymph % (Auto) O'Brien % (Auto) Eos % (Auto) Baso % (Auto) Neut # (Auto) Lymph # (Auto) O'Brien # (Auto) Eos # (Auto) Baso # (Auto) Sodium 140 Potassium 3.5 Chloride 112 H Carbon Dioxide 23 BUN 21 H Creatinine 1.36 H Estimated GFR 54.2 L BUN/Creatinine Ratio 15.4 Glucose 74 Calcium 8.6 Total Bilirubin 0.6 AST 54 ALT 32 Alkaline Phosphatase 117 Ammonia Total Protein 7.9 Albumin 3.7 Globulin 4.2 H Albumin/Globulin Ratio 0.9 L Nasal Screen MRSA (PCR) U Opiates 300ng/mL cut Ur Oxycodone Screen Urine Methadone Screen Ur Barbiturates Screen U Tricyclic Antidepress Ur Phencyclidine Scrn Ur Amphetamines Screen U Methamphetamines Scrn Ur MDMA Scrn (Ecstasy) U Benzodiazepines Scrn Urine Cocaine Screen U Marijuana (THC) Screen Ethyl Alcohol Assessment & Plan Assessment & Plan narrative: Hypertensive encephalopathy, acute, present on admission -patient is back to normal baseline mentation -head CT normal, BMP and CBC without clues. -ammonia level normal -positive for methamphetamine and marijuana -his encephalopathy is suggestive of a postictal state versus a drug induced stupor -patient restarted on his Keppra and back on home routine to control BP Paroxysmal hypertensive crisis, acute, present on admission -precipitated by running out of his meds and also after affects of seizure -discontinue nicardipine drip -patient states his BP has not been well controlled on current regimen of lisinopril 20 mg b.i.d. -add amlodipine 5 mg HS, continue lisinopril 20 mg b.i.d. -make sure he has refills on his routine medications on discharge Seizure disorder, status post acute seizure, active -patient was postictal and now recovered, he had run out of his Keppra for several days -resumed Keppra 500 mg b.i.d. History of stroke with left hemiparesis, stable -patient had CVA in May 2019 and has some residual weakness on the left side -control BP, continue low-dose aspirin and atorvastatin per home routine Anemia, normocytic, acuity unclear, present on admission -no prior CBC available and he does not acknowledge any prior history of anemia -hemoglobin 10.5, repeat 12/31 10.3 -can be worked up as outpatient with his PCP Chronic kidney disease type 3, stable -likely to be hypertensive in origin, continue blood pressure control efforts. Homelessness -patient states he has been homeless for the past 3 years and does not have a place to stay -he is established with PCP in [place] -social work consult in a.m. Patient with improving hospital course and likely can discharge tomorrow after seen by vp digital marketing social media and crm.
--- NOTE | 2020-01-01 18:00 | PC.NURSE ---
1730- Patient had a episode of N/V. MD notified and orders rec. Medicated per order.
[2020-01-01] MEDS: AMLODIPINE 5 MG TABLET PO (21:06)
[2020-01-01] MEDS: LABETALOL 20 MG/4 ML SYRINGE 5 MG IV (22:31)
[2020-01-02] VITALS (12 sets, daily range): BP systolic 154–227; BP diastolic 78–111; PULSE 61–80; RESP 10–18; TEMP 36.7–36.9; O2SAT 97–100
[2020-01-02] MEDS: BUPRENORPHINE/NALOXONE 8MG/2MG 1 TAB SL ×3 (06:01→18:16)
[2020-01-02] MEDS: AMLODIPINE 5 MG TABLET PO ×2 (08:05→18:15)
[2020-01-02] MEDS: ASPIRIN EC 81 MG TABLET PO (08:06)
[2020-01-02] MEDS: carvediloL 3.125 MG TABLET PO ×2 (08:08→18:16)
[2020-01-02] MEDS: ENOXAPARIN 40 MG/0.4 ML SYRINGE SUBCUT (08:08)
[2020-01-02] MEDS: ATORVASTATIN 20 MG TABLET 40 MG PO (08:08)
[2020-01-02] MEDS: SODIUM CHLORIDE 0.9% FLUSH 10 ML IV (08:09)
[2020-01-02] MEDS: lisinopriL 20 MG TABLET PO ×2 (08:09→18:15)
[2020-01-02] MEDS: levETIRAcetam 250 MG TABLET 500 MG PO ×2 (08:09→18:14)
--- NOTE | 2020-01-02 08:24 | CM.DPNOTE ---
Addendum entered by Jossy Jvaier R.N. 01/02/20 15:21: Spoke with greenhouse specialist with home [facility] community services about expedited CONNIE application and they are reviewing it and will email or call patient since the plan is for him to D/C today. Patient notified . Jossy Javier RN. Original Note: DCP Continued: EMR reviewed: LLOYD/BRIGHT applied for expedited connie for patient through [facility] community [facility] and faxed application to [phone]- LLOYD/RN also gave patient information about community action and the hotel vouchers given to homeless who are at high risk for Covid-19 and gave him the contact phone number. Patient stated understanding. LLOYD/Rn also contacted patients SW with [facility] and left a voice message. Jossy Javier RN
--- NOTE | 2020-01-02 14:41 | PM.DS.1 ---
History of Present Illness History of Present Illness Date Patient Seen: 12/31/19 Chief complaint: Decreased LOC Narrative: Written by Dr. Pace: This is a 54-year-old male found unresponsive on a chair either in a friend's yard or a friend's garage. The story has several different versions and the patient is unable to recall any details to clarify. In the emergency department the record states that he was found by someone in the neighborhood sitting in a chair. Additional information is that he was living in someone's garage and when they returned home after a short time away they found him unresponsive. There was no seizures observed and by the time the paramedics arrived he was apparently beginning to behave in a postictal fashion. He was noted to have extremely high blood pressures and so has been tried on labetalol and then a nicardipine drip to bring the blood pressure's down. He continues to be quite confused. He says he has been homeless for about 3 years and lives in no particular location. This contradicts the reports that he is living in someone's garage. He admits to running out of lisinopril 2 days ago and says that he thinks he takes about 5 medications total and ran out of all of them, stopping them simply because he did not get to the point of asking for a refill yet. He is unable to remember the name of his local physician but remembers that it is a female physician in the local community. He knows he has a history of hypertension but cannot recall any other medical history. He says he has had a stroke in the past but has no residual effects. His mother of complications from a stroke. He has no history of seizures or heart disease. The 1st thing he can remember is waking up here in the hospital. He has no recollection of any events today or yesterday. He denies alcohol use on a regular basis saying that he drinks ?hardly at all. He smokes an occasional cigarette along with marijuana and denies all other drugs, specifically denying IV drug use. He appears to have a soft heart murmur that he does not recall hearing about before. He repeatedly falls asleep in a manner typical for a drugged stupor or a postictal state. He will need a urine drug screen and alcohol level. His workup so far is notable for a negative head CT, mild anemia with a hemoglobin of 10.5 and CKD 3. Further testing including liver function and ammonia levels will be obtained. His prolactin level is slightly elevated for unclear reasons. Discharge Providers Provider Date of admission: 12/31/19 16:15 Discharge Date: 01/02/20 Consults: 01/01/20 08:41 [place] to [facility] [place] Associate Professor Of Biology Routine Comment: pt is homeless x 3 years. Tox screen + methampheta 01/01/20 09:31 Consult to [facility] Associate Professor Of Biology Routine Comment: Discharge provider: Conchita Floyd DO Summary Hospital Course Discharge Diagnosis: 1. Acute metabolic encephalopathy, present on admission. Resolved. 2. Acute hypertensive emergency, present on admission. Resolved. 3. Seizure disorder, status post acute seizure, present on admission. Stable. 4. History of stroke with left hemiparesis. 5. Normocytic anemia, acuity unclear but likely chronic, present on admission. Stable. 6. Chronic kidney disease type 3, present on admission. Stable. 7. Homelessness. Hospital Course: Guicho Aguilera is a 54-year-old male with past medical history significant for hypertension and seizure disorder presented after being found unresponsive. 1. Acute metabolic encephalopathy, present on admission. Resolved. -Possibly secondary to postictal state versus hypertensive encephalopathy. Patient is now back to normal baseline mentation. -CT brain without contrast did not demonstrate any acute intracranial abnormalities. -Ammonia level normal. -Urine toxicology screen positive for methamphetamine and marijuana. Patient adamantly denies methamphetamine use. -Treated underlying causes including hypertension and seizure disorder as below. 2. Acute hypertensive emergency, present on admission. Resolved. -Precipitated by running out of his antihypertensive medication lisinopril. -Patient was placed on nicardipine gtt for acute blood pressure management and slowly titrated off. -Patient states his BP has not been well controlled on current regimen of lisinopril 20 mg twice daily. Continue lisinopril 20 mg twice daily and added amlodipine 5 mg twice daily and carvedilol 3.125 mg twice daily. Patient's blood pressure now better controlled with SBP 150s. -Echocardiogram unremarkable other than mild hypertensive heart disease. -Recommended continue titration up on antihypertensive to control blood pressure closely full workup of resistant hypertension per PCP. 3. Seizure disorder, status post acute seizure, present on admission. Stable. -Precipitated by running out of Keppra. -Patient had seizure prior to admission and was initially postictal. Now recovered. -Continued Keppra 500 mg twice daily. 4. History of stroke with left hemiparesis. -Patient had CVA in May 2019 and has some residual weakness on the left side. -Continued to control blood pressure as above. -Continued low-dose aspirin and atorvastatin per home routine 5. Normocytic anemia, acuity unclear but likely chronic, present on admission. Stable. -No prior CBC available and he does not acknowledge any prior history of anemia. Possibly secondary to chronic kidney disease versus other etiology. -Initial hemoglobin 10.5 and stable. -Recommended outpatient workup of anemia per PCP. 6. Chronic kidney disease type 3, present on admission. Stable. -Likely to be hypertensive in origin and continued to control blood pressure as above. -Avoided nephrotoxic agents. -Continued to monitor renal function periodically. 7. Homelessness. -Patient states he has been homeless for the past 3 years and does not have a place to stay. -He is established with PCP in [place] -[place]ulted [facility] [place] we appreciate her time and care of the patient. Exam Vital Signs (past 8 hours): - 01/02/20 07:43 01/02/20 09:00 01/02/20 10:00 Temperature 98.4 F Pulse Rate 78 Respiratory Rate 12 Blood Pressure 227/111 H 205/104 H 177/96 H Pulse Oximetry 100 01/02/20 11:07 01/02/20 12:00 Temperature Pulse Rate 62 62 Respiratory Rate 17 Blood Pressure 193/96 H 154/78 H Pulse Oximetry 99 98 Oxygen Delivery Method Room Air Oxygen Flow Rate 0 Narrative Exam Narrative: General: Middle-aged male sitting in bed and in no acute distress, appears older than stated age, well-developed, well-nourished, appropriately interactive. HEENT: Normocephalic, atraumatic. External ears without defect. Pupils equal, round, and reactive to light. Anicteric sclerae, moist conjunctivae, and no lid lag. Oropharynx free of erythema and cobble stoning with moist mucosa. Neck: Supple with full range of motion. No jugular venous distension.No lymphadenopathy or thyromegaly. Cardiovascular: Regular rate and rhythm without murmurs, rubs, or gallops appreciated Pulmonary: Clear to auscultation bilaterally without crackles, wheezes, or rhonchi. Normal respiratory effort with no use of accessory muscles. Abdomen: Soft, bowel sounds present, nontender, nondistended. No hepatosplenomegaly or masses appreciated. Extremities: No clubbing or cyanosis. Mild bipedal edema. Skin: Normal temperature, turgor, and texture; no rash, ulcers, or subcutaneous nodules appreciated. Neurological: Cranial nerves grossly intact. Chronic residual mild left-sided weakness. Psychiatric: Normal mood and affect. Alert and oriented to person, place, and time. Objective Labs Result Diagrams: 01/01/20 05:03 01/01/20 05:03 Discharge Plan Discharge Plan Patient Disposition: Home Discharge comment: You are being discharged home. Please follow-up with your primary care physician in the next 1 week regarding your hospitalization for hypertensive emergency and seizure. Your home medications have been restarted. In addition you have been prescribed amlodipine 5 mg twice daily and carvedilol 3.125 mg twice daily for better blood pressure control. Please abstain from smoking. You have been provided resources for fpc and an application has been submitted for expedited [employer]. Discharge orders & Medications Prescriptions: New amlodipine [Norvasc] 5 mg Tablet 5 mg PO BID Qty: 60 RF: 0 carvedilol [Coreg] 3.125 mg Tablet 3.125 mg PO BID Qty: 60 RF: 0 buprenorphine-naloxone 8-2 mg film 2 film BUCCAL Q24H Qty: 30 RF: 0 Continued nicotine 14 mg/24 hr patch 24 hour 14 patch topical DAILY RF: 0 atorvastatin 40 mg tablet 40 mg PO DAILY Qty: 30 RF: 0 levetiracetam 500 mg tablet 500 mg PO BID Qty: 60 RF: 0 lisinopril 20 mg tablet 20 mg PO BID Qty: 60 RF: 0 aspirin 81 mg tablet,delayed release (DR/EC) 81 mg PO DAILY Qty: 30 RF: 0 buprenorphine-naloxone [Suboxone] 8-2 mg film 3 film buccal DAILY Qty: 3 RF: 0 Discontinued buprenorphine-naloxone [Suboxone] 8-2 mg film 3 film buccal DAILY RF: 0 Diet/Activity/Treatments Diet: Diet as Tolerated, Low-fat, Low-sodium and Low-cholesterol Activity: Activity as tolerated Visit Report/Discharge Packet Instructions: The Mediterranean Diet and Good Health, The DASH Diet, Essential Hypertension, Amlodipine (By mouth), Carvedilol (By mouth) Discharges patient from system. Discharge Date/Time: 01/02/20 19:15
--- NOTE | 2020-01-02 15:10 | PC.NURSE ---
Day Shift Patient reported that he was missing two backpacks that hold all I own. Backpacks not present in room although some clothing is. Called pt's contact Messi who denied having the two backpacks and also denied knowledge of their whereabouts. Called ER, lost and found, AND main nurses station - not present at any of these locations. Per admission documentation pt did not arrive to rm [id number] with any backpacks. Charge nurse (Sanket NOVOA) called ambulance companies but no evidence of backpacks per ambulance. Pt updated.
--- NOTE | 2020-01-02 19:30 | PC.NURSE ---
Patient was discharged to [facility]. Resources were provided regarding shelters and local housing options. Patient does not know where his backpack is and was very upset. I tried calling his phone, which is supposedly in the backpack, and left a voicemail asking for anyone who finds the phone to call the hospital. Patient received his 2100 meds before discharge, approved by Dr. Floyd. Patient was advised to follow up with a PCP and given new prescriptions.
== END 2020-01-02 19:15 | disposition home or self-care (01) | DRG 52 ==
LOC: ED 15:02 → AC 17:28 → ICU 01-01 15:19 → AC 01-02 08:51 → ICU 01-02 08:51
PROVIDERS: Family Medicine; Admitting Provider Internal Medicine; Emergency Provider Emergency Medicine; Referring Provider Emergency Medicine; Visit Provider Internal Medicine
DX: I67.4 Hypertensive encephalopathy (principal); I16.9 Hypertensive crisis, unspecified; I12.9 Hypertensive chronic kidney disease with stage 1 through stage 4 chronic kidney disease, or unspecified chronic kidney disease; I69.354 Hemiplegia and hemiparesis following cerebral infarction affecting left non-dominant side; N18.3 Chronic kidney disease, stage 3 (moderate); F17.210 Nicotine dependence, cigarettes, uncomplicated; G40.909 Epilepsy, unspecified, not intractable, without status epilepticus; D64.9 Anemia, unspecified; Z59.0 Homelessness; Z91.128 Patient's intentional underdosing of medication regimen for other reason
CPT/HCPCS: 36415; 70450; 80048; 80053; 80305; 80320; 81001; 82140; 84146; 85025; 87797; 93306; 96374; 99284; J1650; J2405

== ENCOUNTER 2020-03-05 17:23 | Observation (INO) | payer OTHER, MEDICAID, SELFPAY ==
[2019-12-31 19:13] VITALS: BMI 23.7
[2020-03-05] VITALS (10 sets, daily range): BP systolic 148–223; BP diastolic 86–120; PULSE 62–95; RESP 10–21; TEMP 36.3–36.8; O2SAT 98–100; BMI 28.1
--- NOTE | 2020-03-05 17:37 | ED.SEIZURE ---
HPI - Seizure <Marcie GoodBERNARD - Last Filed: 03/05/20 22:01> General Chief Complaint: Seizure Stated Complaint: Seizure Time Seen by Provider: 03/05/20 17:28 History of Present Illness HPI Narrative: 54y homeless male with a history of hypertension, CVA in 2019, and hernia repair, presents to the ED via EMS for a seizure. EMS states patient was at a friend's house when he had a tonic-clonic seizure, friend reports this was witnessed lasted about 4 minutes and was unconscious for a few minutes after the seizure. Patient was incontinent of urine, appeared to have bit his tongue as well. When EMS arrived, patient was awake and alert but postictal. Patient arrives to the emergency department awake and aware of situation (knows he is in the hospital and knows he has had a seizure) and person (name and date), unsure the exact year or specific hospital he is at. Patient states he ran out of his blood pressure medication approximately few days ago. Initially he denied taking anything for seizures but later stated that he does take a medication. Unsure of his primary care provider's name. Patient denies any pain at this time, denies headache, vision changes, chest pain, shortness of breath, nausea, vomiting, abdominal pain, diarrhea, cough, fevers, or any other concerns. Patient was recently admitted here in the hospital for r/o hypertensive encephalopathy from 12/31/19 to 01/02/20. Related Data Home Medications Medication Instructions Recorded Confirmed nicotine 14 patch TOPICAL DAILY 01/01/20 01/01/20 Previous Rx's Medication Instructions Recorded amlodipine [Norvasc] 5 mg PO BID #60 tab 01/02/20 aspirin 81 mg PO DAILY #30 tab 01/02/20 atorvastatin 40 mg PO DAILY #30 tab 01/02/20 buprenorphine-naloxone 2 film BUCCAL Q24H #30 each 01/02/20 buprenorphine-naloxone [Suboxone] 3 film BUCCAL DAILY #3 ea 01/02/20 carvedilol [Coreg] 3.125 mg PO BID #60 tab 01/02/20 levetiracetam 500 mg PO BID #60 tab 01/02/20 lisinopril 20 mg PO BID #60 tab 01/02/20 Allergies Allergy/AdvReac Type Severity Reaction Status Date / Time No Known Drug Allergies Allergy Verified 12/31/19 13:35 Review of Systems <BERNARD Bowman - Last Filed: 03/05/20 22:01> Review of Systems Narrative: REVIEW OF SYSTEMS: GENERAL: Denies fever or chills. HENT: No visual head trauma. EYES: No vision changes. CARDIOVASCULAR: No chest pain. RESPIRATORY: No shortness of breath or cough. GASTROINTESTINAL: No nausea, vomiting, diarrhea, or constipation. GENITOURINARY: No flank pain or dysuria. MUSCULOSKELETAL: No pain, weakness, or deformities. INTEGUMENTARY: No rash, lesions, or pruritus. NEURO: Reports seizures and LOC, see HPI. Patient History <BERNARD Bowman - Last Filed: 03/05/20 22:01> Medical History CVA (cerebral vascular accident) (Acute) Hypertension (Acute) Seizure disorder (Acute) Surgical History History of right inguinal hernia repair (Acute) Family History Mother CVA (cerebral vascular accident) Father No problems noted. Sister COPD (chronic obstructive pulmonary disease) Social History household members: none Smoking Status: Current every day smoker Smoking Status: Current every day smoker alcohol intake frequency: holidays/special occasions only Substance Use Type: does not use Exam <BERNARD Bowman - Last Filed: 03/05/20 22:01> Initial Vital Signs Initial Vital Signs: Vital Signs Temperature 98.3 F 03/05/20 17:27 Pulse Rate 95 H 03/05/20 17:27 Respiratory Rate 16 03/05/20 17:27 Blood Pressure 218/120 H 03/05/20 17:27 Pulse Oximetry 100 03/05/20 17:27 PHYSICAL EXAMINATION: GENERAL: Disheveled, alert, cooperative. Answers questions promptly and appropriately. Vital signs noted. HENT: Normocephalic. Ear canals patent. Small lesion noted to tongue. EYES: PERRLA, EOMIs, conjunctiva pink, sclera white, no periorbital swelling. NECK: Full ROM, no midline or spinal tenderness. CARDIOVASCULAR: S1 and S2 sounds normal. Regular rate and rhythm, no murmurs, clicks, or bruits. RESPIRATORY: Normal respiratory rate, trachea midline, airway patent. No stridor, nasal flaring or accessory muscle use. Lungs are clear in all brower without wheeze, rhonchi, or crackles. MUSCULOSKELETAL: No bruising or deformities. Normal gait and coordination. Equal tone and mass bilaterally. Equal strength bilaterally to upper and lower extremities. No spinal tenderness. EXTREMITIES: CMS intact. Moves all extremities. SKIN: Warm, dry, soft, appropriate color for ethnicity. No lesions, rashes, or wounds to visualized areas. NEURO: Alert and Oriented X 3. GCS: 14 initially and GCS of 15 upon re-evaluation. Good coordination. No ataxia, or sensory deficits, or cognitive issues. Cranial Nerves: II: Visual brower grossly intact. III & IV & : EOMIs V: Able to open and close jaw. VII: Facial movements symetrical. Able to close eyelids tightly. VIII: Hearing grossly intact, adequate balance. X: Uvula pronation intact. XI: Patient is able to shrug shoulders. XII: Patient is able to stick out tongue and move it side to side. PSYCH: Appropriate affect and mood. <Kalyn Marie MD - Last Filed: 03/06/20 04:34> Initial Vital Signs Initial Vital Signs: Vital Signs Temperature 98.3 F 03/05/20 17:27 Pulse Rate 95 H 03/05/20 17:27 Respiratory Rate 16 03/05/20 17:27 Blood Pressure 218/120 H 03/05/20 17:27 Pulse Oximetry 100 03/05/20 17:27 Scores <BERNARD Bowman - Last Filed: 03/05/20 22:01> GCS Phillips coma scale eye opening: Spontaneous Elmo coma scale verbal response: Confused Elmo coma scale motor response: Obey commands Phillips coma scale total score: 14 Course <BERNARD Bowman - Last Filed: 03/05/20 22:01> Course Course Narrative: 2047: I spoke with BERNARD Emery who accepts for admission. Orders Ordered: ED Orders 03/05/20 20:28 EKG-12 Lead Stat 03/05/20 20:48 Urinalysis Screen (Dip Only) Stat Urine Drug Screen, Rapid Stat Urine Microscopic Stat 03/05/20 20:50 Troponin I Stat Acetaminophen (Tylenol) 650 mg PO Q4HR PRN PRN Reason: Fever/Mild Pain (1-3) Al Hydrox/Mg Hydrox/Simethicone (Maalox Plus) 30 ml PO Q6HR PRN PRN Reason: Dyspepsia Amlodipine Besylate (Norvasc) 5 mg PO BID [facility] Aspirin (Aspirin Ec) 81 mg PO DAILY [facility] Atorvastatin Calcium (Lipitor) 40 mg PO BEDTIME [facility] Bisacodyl (Dulcolax) 10 mg OR DAILY PRN PRN Reason: Constipation Carvedilol (Coreg) 3.125 mg PO BIDWM [facility] Docusate Sodium (Colace) 100 mg PO BID PRN PRN Reason: Constipation Heparin Sodium (Porcine) (Heparin) 5,000 unit SUBCUT BID [facility] Sodium Chloride (Normal Saline 0.9%) 1,000 mls @ 100 mls/hr IV CONT [facility] Last Admin: 03/06/20 00:20 Dose: 100 mls/hr Documented by: SHAYY Nicardipine HCl 25 mg/ Sodium (Chloride) 250 mls @ 50 mls/hr IV TITRATE [facility]; Protocol Last Titration: 03/06/20 03:07 Dose: 2 mg/hr, 20 mls/hr Documented by: Titration: 03/06/20 01:06 Dose: 1.5 mg/hr, 15 mls/hr Documented by: Titration: 03/06/20 00:30 Dose: 2 mg/hr, 20 mls/hr Documented by: Titration: 03/05/20 23:56 Dose: 2.5 mg/hr, 25 mls/hr Documented by: Admin: 03/05/20 23:21 Dose: 5 mg/hr, 50 mls/hr Documented by: EUGENIEHIDANA Levetiracetam (Keppra) 500 mg PO BID [facility] Lisinopril (Zestril) 20 mg PO BID [facility] Lorazepam (Ativan) 1 mg IV PRN PRN PRN Reason: Seizure Activity Naloxone HCl (Narcan) 0.2 mg IV Q2MIN PRN PRN Reason: Opiate Reversal Naloxone HCl (Narcan) 0.2 mg IV Q2MIN PRN PRN Reason: Opiate Reversal Non-Formulary Medication (Buprenorphine-Naloxone) 2 film PO Q24H [facility] Last Admin: 03/06/20 00:21 Dose: Not Given Documented by: SHAYY Ondansetron HCl (Zofran) 4 mg IV Q8HR PRN PRN Reason: Nausea And Vomiting Oxycodone HCl (Percolone) 5 mg PO Q4HR PRN PRN Reason: Pain, Moderate (4-6) Last Admin: 03/06/20 00:03 Dose: 5 mg Documented by: SHAYY Pantoprazole Sodium (Protonix) 40 mg IV DAILY RAMIN Discontinued Medications Acetaminophen (Tylenol) 650 mg PO NOW ONE Stop: 03/05/20 19:15 Last Admin: 03/05/20 21:10 Dose: 650 mg Documented by: HOLDEN Dextrose (D50w) 25 gm IV NOW ONE Stop: 03/06/20 00:57 Last Admin: 03/06/20 01:06 Dose: 25 gm Documented by: SHAYY Levetiracetam 1,000 mg/ Sodium (Chloride) 110 mls @ 440 mls/hr IV NOW ONE Stop: 03/05/20 17:35 Last Infusion: 03/06/20 00:40 Dose: 0 mls/hr Documented by: Admin: 03/05/20 18:03 Dose: 440 mls/hr Documented by: HOLDEN Sodium Chloride (Normal Saline 0.9%) 1,000 mls @ 125 mls/hr IV BOLUS ONE Stop: 03/06/20 01:54 Last Admin: 03/05/20 18:03 Dose: 125 mls/hr Documented by: HOLDEN Labetalol HCl (Trandate) 20 mg IV NOW ONE Stop: 03/05/20 17:35 Last Admin: 03/05/20 18:05 Dose: 20 mg Documented by: HOLDEN Labetalol HCl (Trandate) 20 mg IV NOW ONE Stop: 03/05/20 19:14 Last Admin: 03/05/20 20:47 Dose: 20 mg Documented by: HOLDEN Metoprolol Succinate (Toprol Xl) 50 mg PO NOW ONE Stop: 03/05/20 19:14 Last Admin: 03/06/20 00:40 Dose: Not Given Documented by: SHAYY Metoprolol Succinate (Toprol Xl) 25 mg PO NOW ONE Stop: 03/05/20 20:54 Last Admin: 03/05/20 21:57 Dose: 25 mg Documented by: DANIELLA Consultations Consultation #1: Discussed symptoms, test, test results, and plan of care with Dr. Marie. Vital Signs Vital signs: Vital Signs - 8 hr 03/05/20 20:57 Pulse Rate 64 Respiratory Rate 15 Blood Pressure [Right Arm] 222/111 H Pulse Oximetry 99 <Kalyn Marie MD - Last Filed: 03/06/20 04:34> Orders Ordered: ED Orders 03/05/20 20:28 EKG-12 Lead Stat 03/05/20 20:48 Urinalysis Screen (Dip Only) Stat Urine Drug Screen, Rapid Stat Urine Microscopic Stat 03/05/20 20:50 Troponin I Stat Acetaminophen (Tylenol) 650 mg PO Q4HR PRN PRN Reason: Fever/Mild Pain (1-3) Al Hydrox/Mg Hydrox/Simethicone (Maalox Plus) 30 ml PO Q6HR PRN PRN Reason: Dyspepsia Amlodipine Besylate (Norvasc) 5 mg PO BID [facility] Aspirin (Aspirin Ec) 81 mg PO DAILY RAMIN Atorvastatin Calcium (Lipitor) 40 mg PO BEDTIME [facility] Bisacodyl (Dulcolax) 10 mg OR DAILY PRN PRN Reason: Constipation Carvedilol (Coreg) 3.125 mg PO BIDWM RAMIN Docusate Sodium (Colace) 100 mg PO BID PRN PRN Reason: Constipation Heparin Sodium (Porcine) (Heparin) 5,000 unit SUBCUT BID RAMIN Sodium Chloride (Normal Saline 0.9%) 1,000 mls @ 100 mls/hr IV CONT RAMIN Last Admin: 03/06/20 00:20 Dose: 100 mls/hr Documented by: SHAYY Nicardipine HCl 25 mg/ Sodium (Chloride) 250 mls @ 50 mls/hr IV TITRATE RAMIN; Protocol Last Titration: 03/06/20 03:07 Dose: 2 mg/hr, 20 mls/hr Documented by: Titration: 03/06/20 01:06 Dose: 1.5 mg/hr, 15 mls/hr Documented by: Titration: 03/06/20 00:30 Dose: 2 mg/hr, 20 mls/hr Documented by: Titration: 03/05/20 23:56 Dose: 2.5 mg/hr, 25 mls/hr Documented by: Admin: 03/05/20 23:21 Dose: 5 mg/hr, 50 mls/hr Documented by: DANIELLA Levetiracetam (Keppra) 500 mg PO BID [facility] Lisinopril (Zestril) 20 mg PO BID RAMIN Lorazepam (Ativan) 1 mg IV PRN PRN PRN Reason: Seizure Activity Naloxone HCl (Narcan) 0.2 mg IV Q2MIN PRN PRN Reason: Opiate Reversal Naloxone HCl (Narcan) 0.2 mg IV Q2MIN PRN PRN Reason: Opiate Reversal Non-Formulary Medication (Buprenorphine-Naloxone) 2 film PO Q24H RAMIN Last Admin: 03/06/20 00:21 Dose: Not Given Documented by: SHAYY Ondansetron HCl (Zofran) 4 mg IV Q8HR PRN PRN Reason: Nausea And Vomiting Oxycodone HCl (Percolone) 5 mg PO Q4HR PRN PRN Reason: Pain, Moderate (4-6) Last Admin: 03/06/20 00:03 Dose: 5 mg Documented by: SHAYY Pantoprazole Sodium (Protonix) 40 mg IV DAILY RAMIN Discontinued Medications Acetaminophen (Tylenol) 650 mg PO NOW ONE Stop: 03/05/20 19:15 Last Admin: 03/05/20 21:10 Dose: 650 mg Documented by: HOLDEN Dextrose (D50w) 25 gm IV NOW ONE Stop: 03/06/20 00:57 Last Admin: 03/06/20 01:06 Dose: 25 gm Documented by: SHAYY Levetiracetam 1,000 mg/ Sodium (Chloride) 110 mls @ 440 mls/hr IV NOW ONE Stop: 03/05/20 17:35 Last Infusion: 03/06/20 00:40 Dose: 0 mls/hr Documented by: Admin: 03/05/20 18:03 Dose: 440 mls/hr Documented by: HOLDEN Sodium Chloride (Normal Saline 0.9%) 1,000 mls @ 125 mls/hr IV BOLUS ONE Stop: 03/06/20 01:54 Last Admin: 03/05/20 18:03 Dose: 125 mls/hr Documented by: HOLDEN Labetalol HCl (Trandate) 20 mg IV NOW ONE Stop: 03/05/20 17:35 Last Admin: 03/05/20 18:05 Dose: 20 mg Documented by: HOLDEN Labetalol HCl (Trandate) 20 mg IV NOW ONE Stop: 03/05/20 19:14 Last Admin: 03/05/20 20:47 Dose: 20 mg Documented by: HOLDEN Metoprolol Succinate (Toprol Xl) 50 mg PO NOW ONE Stop: 03/05/20 19:14 Last Admin: 03/06/20 00:40 Dose: Not Given Documented by: SHAYY Metoprolol Succinate (Toprol Xl) 25 mg PO NOW ONE Stop: 03/05/20 20:54 Last Admin: 03/05/20 21:57 Dose: 25 mg Documented by: DANIELLA Vital Signs Vital signs: Vital Signs - 8 hr 03/05/20 20:57 Pulse Rate 64 Respiratory Rate 15 Blood Pressure [Right Arm] 222/111 H Pulse Oximetry 99 MDM - Seizure <BERNARD Bowman - Last Filed: 03/05/20 22:01> Medical Records Attestation: I reviewed the patient's medical records. Lab Data Attestation: I reviewed the patient's lab results. Result diagrams: 03/05/20 16:47 03/05/20 16:47 Labs: Lab Results 03/05/20 03/05/20 03/05/20 Range/Units 16:45 16:47 16:47 WBC 6.3 (4.5-11.0) X10^3/uL RBC 3.89 L (4.5-5.9) X10^6/uL Hgb 10.9 L (13.5-17.5) g/dL Hct 32.2 L (41-53) % MCV 82.9 (80-100) fL MCH 28.1 (26-34) PG MCHC 33.9 (30-36) % RDW 15.1 H (11.6-14.8) % Plt Count 210 (150-400) X10^3/uL Neut % (Auto) 60.1 (50-75) % Lymph % (Auto) 30.6 (25-40) % [place] % (Auto) 7.5 (3-14) % Eos % (Auto) 1.0 L (2-4) % Baso % (Auto) 0.8 (0-2) % Neut # (Auto) 3800 (8846-5437) /uL Lymph # (Auto) 1900 (3620-4967) /uL [place] # (Auto) 500 (0-900) /uL Eos # (Auto) 100 (0-450) /uL Baso # (Auto) 100 (0-100) /uL Sodium 140 (137-145) mmol/L Potassium 4.1 (3.4-5.1) mmol/L Chloride 107 (98-107) mmol/L Carbon Dioxide 21 L (22-32) mmol/L BUN 26 H (9-20) mg/dL Creatinine 1.46 H (0.66-1.25) mg/dL Estimated GFR 49.9 L (>60) mL/min BUN/Creatinine Ratio 17.8 (6-22) Glucose 91 (70-100) mg/dL Calcium 9.3 (8.4-10.2) mg/dL Magnesium (1.6-2.3) mg/dL Total Bilirubin 0.4 (0.2-1.3) mg/dL AST 46 (17-59) IU/L ALT 34 (<50) IU/L Alkaline Phosphatase 106 (38-126) U/L Total Creatine Kinase 80 (55-170) U/L CK-MB (CK-2) TNP CK-MB (CK-2) Rel Index TNP Troponin I < 0.012 (0.01-0.034) ng/mL Total Protein 8.7 H (6.3-8.2) g/dL Albumin 4.3 (3.5-5.0) g/dL Globulin 4.4 H (1.7-4.1) g/dL Albumin/Globulin Ratio 1.0 (1.0-2.8) Prolactin (3.7-17.9) ng/mL Urine Color Urine Appearance Urine pH (4.5-8.0) Ur Specific [place] (1.000-1.035) Urine Protein (Negative) Urine Glucose (UA) (Negative) g/dL Urine Ketones (NEGATIVE) Urine Occult Blood (Negative) Urine Nitrate (Negative) Urine Bilirubin (NEGATIVE) Urine Urobilinogen (0.2) E.U./dL Ur Leukocyte Esterase (NEGATIVE) Urine RBC (0-5/HPF) Urine WBC (0-5/HPF) Ur Squamous Epith Cells (0-5/HPF) Urine Bacteria (None) Ur Culture Indicated? U Opiates 300ng/mL cut (Negative) Ur Oxycodone Screen (Negative) Urine Methadone Screen (Negative) Ur Barbiturates Screen (Negative) U Tricyclic Antidepress (Negative) Ur Phencyclidine Scrn (Negative) Ur Amphetamines Screen (Negative) U Methamphetamines Scrn (Negative) Ur MDMA Scrn (Ecstasy) (Negative) U Benzodiazepines Scrn (Negative) Urine Cocaine Screen (Negative) U Marijuana (THC) Screen (Negative) 03/05/20 03/05/20 03/05/20 Range/Units 16:47 20:48 20:48 WBC (4.5-11.0) X10^3/uL RBC (4.5-5.9) X10^6/uL Hgb (13.5-17.5) g/dL Hct (41-53) % MCV (80-100) fL MCH (26-34) PG MCHC (30-36) % RDW (11.6-14.8) % Plt Count (150-400) X10^3/uL Neut % (Auto) (50-75) % Lymph % (Auto) (25-40) % [place] % (Auto) (3-14) % Eos % (Auto) (2-4) % Baso % (Auto) (0-2) % Neut # (Auto) (9359-6127) /uL Lymph # (Auto) (7662-0773) /uL [place] # (Auto) (0-900) /uL Eos # (Auto) (0-450) /uL Baso # (Auto) (0-100) /uL Sodium (137-145) mmol/L Potassium (3.4-5.1) mmol/L Chloride (98-107) mmol/L Carbon Dioxide (22-32) mmol/L BUN (9-20) mg/dL Creatinine (0.66-1.25) mg/dL Estimated GFR (>60) mL/min BUN/Creatinine Ratio (6-22) Glucose (70-100) mg/dL Calcium (8.4-10.2) mg/dL Magnesium 2.4 H (1.6-2.3) mg/dL Total Bilirubin (0.2-1.3) mg/dL AST (17-59) IU/L ALT (<50) IU/L Alkaline Phosphatase (38-126) U/L Total Creatine Kinase (55-170) U/L CK-MB (CK-2) CK-MB (CK-2) Rel Index Troponin I (0.01-0.034) ng/mL Total Protein (6.3-8.2) g/dL Albumin (3.5-5.0) g/dL Globulin (1.7-4.1) g/dL Albumin/Globulin Ratio (1.0-2.8) Prolactin 28.4 H (3.7-17.9) ng/mL Urine Color Yellow Urine Appearance Clear Urine pH 6.0 (4.5-8.0) Ur Specific [place] 1.015 (1.000-1.035) Urine Protein 1+ H (Negative) Urine Glucose (UA) Negative (Negative) g/dL Urine Ketones Negative (NEGATIVE) Urine Occult Blood 1+ H (Negative) Urine Nitrate Negative (Negative) Urine Bilirubin Negative (NEGATIVE) Urine Urobilinogen 0.2 (0.2) E.U./dL Ur Leukocyte Esterase Negative (NEGATIVE) Urine RBC 1-5/hpf (0-5/HPF) Urine WBC 0-1/hpf (0-5/HPF) Ur Squamous Epith Cells 0-1 /hpf (0-5/HPF) Urine Bacteria None seen (None) Ur Culture Indicated? Cult not indicated U Opiates 300ng/mL cut Negative (Negative) Ur Oxycodone Screen Negative (Negative) Urine Methadone Screen Negative (Negative) Ur Barbiturates Screen Negative (Negative) U Tricyclic Antidepress Negative (Negative) Ur Phencyclidine Scrn Negative (Negative) Ur Amphetamines Screen Negative (Negative) U Methamphetamines Scrn Positive H (Negative) Ur MDMA Scrn (Ecstasy) Negative (Negative) U Benzodiazepines Scrn Negative (Negative) Urine Cocaine Screen Negative (Negative) U Marijuana (THC) Screen Positive H (Negative) 03/05/ Range/Units 20:50 WBC (4.5-11.0) X10^3/uL RBC (4.5-5.9) X10^6/uL Hgb (13.5-17.5) g/dL Hct (41-53) % MCV (80-100) fL MCH (26-34) PG MCHC (30-36) % RDW (11.6-14.8) % Plt Count (150-400) X10^3/uL Neut % (Auto) (50-75) % Lymph % (Auto) (25-40) % [place] % (Auto) (3-14) % Eos % (Auto) (2-4) % Baso % (Auto) (0-2) % Neut # (Auto) (8176-4548) /uL Lymph # (Auto) (3143-6940) /uL [place] # (Auto) (0-900) /uL Eos # (Auto) (0-450) /uL Baso # (Auto) (0-100) /uL Sodium (137-145) mmol/L Potassium (3.4-5.1) mmol/L Chloride (98-107) mmol/L Carbon Dioxide (22-32) mmol/L BUN (9-20) mg/dL Creatinine (0.66-1.25) mg/dL Estimated GFR (>60) mL/min BUN/Creatinine Ratio (6-22) Glucose (70-100) mg/dL Calcium (8.4-10.2) mg/dL Magnesium (1.6-2.3) mg/dL Total Bilirubin (0.2-1.3) mg/dL AST (17-59) IU/L ALT (<50) IU/L Alkaline Phosphatase (38-126) U/L Total Creatine Kinase (55-170) U/L CK-MB (CK-2) CK-MB (CK-2) Rel Index Troponin I 0.013 (0.01-0.034) ng/mL Total Protein (6.3-8.2) g/dL Albumin (3.5-5.0) g/dL Globulin (1.7-4.1) g/dL Albumin/Globulin Ratio (1.0-2.8) Prolactin (3.7-17.9) ng/mL Urine Color Urine Appearance Urine pH (4.5-8.0) Ur Specific [place] (1.000-1.035) Urine Protein (Negative) Urine Glucose (UA) (Negative) g/dL Urine Ketones (NEGATIVE) Urine Occult Blood (Negative) Urine Nitrate (Negative) Urine Bilirubin (NEGATIVE) Urine Urobilinogen (0.2) E.U./dL Ur Leukocyte Esterase (NEGATIVE) Urine RBC (0-5/HPF) Urine WBC (0-5/HPF) Ur Squamous Epith Cells (0-5/HPF) Urine Bacteria (None) Ur Culture Indicated? U Opiates 300ng/mL cut (Negative) Ur Oxycodone Screen (Negative) Urine Methadone Screen (Negative) Ur Barbiturates Screen (Negative) U Tricyclic Antidepress (Negative) Ur Phencyclidine Scrn (Negative) Ur Amphetamines Screen (Negative) U Methamphetamines Scrn (Negative) Ur MDMA Scrn (Ecstasy) (Negative) U Benzodiazepines Scrn (Negative) Urine Cocaine Screen (Negative) U Marijuana (THC) Screen (Negative) Imaging Data Chest x-ray: Radiologist's Impression: [address] [address] XRay Report Signed Patient: Guicho Aguilera MAGGIER#: [id number] : 1965Acct:[id number] Age/Sex: 54 / MDate of Service: 03/05/20 Loc: ED Accession Number: [id number] Procedure: XR chest 1V Ordering Provider: Marcie Good PROCEDURE: XR CHEST 1V INDICATIONS: Chest pain TECHNIQUE: One view of the chest was acquired. COMPARISON: None. FINDINGS: Surgical changes and devices: None. Lungs and pleura: Lungs are clear. No pleural effusions or pneumothorax. Mediastinum: Mediastinal contours appear normal. Heart size is normal. Bones and chest wall: No suspicious bony lesions. Overlying soft tissues appear unremarkable. IMPRESSION: No acute cardiopulmonary pathology. Dictated by: Ronn Melchor M.D. on 03/05/2020 at 18:25 Approved by: Ronn Melchor M.D. on 03/05/2020 at 18:25 CT scan - head: Radiologist's Impression: [address] [address] [address] Scan Report Signed Patient: Guicho Aguilera MAGGIER#: [id number] : 1965Acct:[id number] Age/Sex: 54 / MDate of Service: 03/05/20 Loc: ED Accession Number: [id number] Procedure: CT head/brain wo con Ordering Provider: Marcie Good PROCEDURE: CT HEAD/BRAIN WO CON INDICATIONS: Seizure versus hypertensive crisis TECHNIQUE: Noncontrast 4.5 mm thick angled axial sections acquired from the foramen magnum to the vertex, with coronal and sagittal reformats. For radiation dose reduction, the following was used: automated exposure control, adjustment of mA and/or kV according to patient size. COMPARISON: [facility], CT, CT HEAD/BRAIN WO CON, 12/31/2019, 13:34. FINDINGS: Image quality: Excellent. CSF spaces: Basal cisterns are patent. No extra-axial fluid collections. The ventricles are symmetric in size and shape. Brain: No intracranial bleeds or masses. There is cerebral volume loss for age, with resultant ventricular and sulcal prominence. There are periventricular and deep white matter chronic small vessel ischemic changes. There is intracranial internal carotid artery atherosclerosis. Skull and face: Calvarium and visualized facial bones appear intact, without suspicious lesions. Sinuses: Mucosal thickening in right ethmoid and maxillary sinuses are seen. Bilateral mastoids are well aerated. IMPRESSION: 1. No CT evidence of acute intracranial pathology. No significant changes from previous study. 2. Right-sided ethmoid and maxillary sinusitis. Dictated by: Ronn Melchor M.D. on 03/05/2020 at 18:23 Approved by: Ronn Melchor M.D. on 03/05/2020 at 18:24 ECG Data Interpretation: 1744: Sinus rhythm, rate 85, OR interval 170, QTC 471. 1mm ST elevation noted to V3, possible 0.5 mm elevation V2. No ST depression or T-wave inversion. EKG also viewed by Dr. Marie. No prior comparable studies. 2039: Normal sinus rhythm, rate 73, OR interval 172, QTC 463. 1-2 mm elevation noted to be 3, 0.5 mm elevation in V2. No ST depression. No T-wave inversion. EKG also viewed by DR. Marie per protocol. [facility] Narrative Medical decision making narrative: 54-year-old male is currently homeless with a history of hypertensive crisis and CVA presents to emergency department EMS for a witnessed siezure. Differential includes organic epileptic seizure versus hypertensive crisis/hypertensive encephalopathy, patient has had this happen in the past and was recently admitted in December for similar. While this may be an epileptic seizure, hypertensive crisis cannot be ruled out especially as patient has significant elevated hypertension, headache, and is currently homeless without medications. Patient has elevated procalcitonin as well. Patient was admitted for further workup and management. Less likely intracranial bleed due to lack of changes on CT. Patient did have did have some slight ST elevations in V2 and possible V1, serial troponins within normal limits related to acute hypertension. This also may be some rebound hypertension due to recently running out of prescriptions for blood pressure. No prior EKGs for comparison. Differential also includes possible drug-induced, however, less likely, due to lack of other concerning symptoms such as sedation, hyperthermia, or delayed pupillary response. Patient's U tox positive for methamphetamines. Less concern for infection due to lack of systemic symptoms, fevers, and normal white blood cell count. <Kalyn Marie MD - Last Filed: 03/06/20 04:34> Lab Data Labs: Lab Results 03/05/20 03/05/20 03/05/20 Range/Units 16:45 16:47 16:47 WBC 6.3 (4.5-11.0) X10^3/uL RBC 3.89 L (4.5-5.9) X10^6/uL Hgb 10.9 L (13.5-17.5) g/dL Hct 32.2 L (41-53) % MCV 82.9 (80-100) fL MCH 28.1 (26-34) PG MCHC 33.9 (30-36) % RDW 15.1 H (11.6-14.8) % Plt Count 210 (150-400) X10^3/uL Neut % (Auto) 60.1 (50-75) % Lymph % (Auto) 30.6 (25-40) % [place] % (Auto) 7.5 (3-14) % Eos % (Auto) 1.0 L (2-4) % Baso % (Auto) 0.8 (0-2) % Neut # (Auto) 3800 (3120-8170) /uL Lymph # (Auto) 1900 (4101-0718) /uL [place] # (Auto) 500 (0-900) /uL Eos # (Auto) 100 (0-450) /uL Baso # (Auto) 100 (0-100) /uL Sodium 140 (137-145) mmol/L Potassium 4.1 (3.4-5.1) mmol/L Chloride 107 (98-107) mmol/L Carbon Dioxide 21 L (22-32) mmol/L BUN 26 H (9-20) mg/dL Creatinine 1.46 H (0.66-1.25) mg/dL Estimated GFR 49.9 L (>60) mL/min BUN/Creatinine Ratio 17.8 (6-22) Glucose 91 (70-100) mg/dL Calcium 9.3 (8.4-10.2) mg/dL Magnesium (1.6-2.3) mg/dL Total Bilirubin 0.4 (0.2-1.3) mg/dL AST 46 (17-59) IU/L ALT 34 (<50) IU/L Alkaline Phosphatase 106 (38-126) U/L Total Creatine Kinase 80 (55-170) U/L CK-MB (CK-2) TNP CK-MB (CK-2) Rel Index TNP Troponin I < 0.012 (0.01-0.034) ng/mL Total Protein 8.7 H (6.3-8.2) g/dL Albumin 4.3 (3.5-5.0) g/dL Globulin 4.4 H (1.7-4.1) g/dL Albumin/Globulin Ratio 1.0 (1.0-2.8) Prolactin (3.7-17.9) ng/mL Urine Color Urine Appearance Urine pH (4.5-8.0) Ur Specific [place] (1.000-1.035) Urine Protein (Negative) Urine Glucose (UA) (Negative) g/dL Urine Ketones (NEGATIVE) Urine Occult Blood (Negative) Urine Nitrate (Negative) Urine Bilirubin (NEGATIVE) Urine Urobilinogen (0.2) E.U./dL Ur Leukocyte Esterase (NEGATIVE) Urine RBC (0-5/HPF) Urine WBC (0-5/HPF) Ur Squamous Epith Cells (0-5/HPF) Urine Bacteria (None) Ur Culture Indicated? U Opiates 300ng/mL cut (Negative) Ur Oxycodone Screen (Negative) Urine Methadone Screen (Negative) Ur Barbiturates Screen (Negative) U Tricyclic Antidepress (Negative) Ur Phencyclidine Scrn (Negative) Ur Amphetamines Screen (Negative) U Methamphetamines Scrn (Negative) Ur MDMA Scrn (Ecstasy) (Negative) U Benzodiazepines Scrn (Negative) Urine Cocaine Screen (Negative) U Marijuana (THC) Screen (Negative) 03/05/20 03/05/20 03/05/20 Range/Units 16:47 20:48 20:48 WBC (4.5-11.0) X10^3/uL RBC (4.5-5.9) X10^6/uL Hgb (13.5-17.5) g/dL Hct (41-53) % MCV (80-100) fL MCH (26-34) PG MCHC (30-36) % RDW (11.6-14.8) % Plt Count (150-400) X10^3/uL Neut % (Auto) (50-75) % Lymph % (Auto) (25-40) % [place] % (Auto) (3-14) % Eos % (Auto) (2-4) % Baso % (Auto) (0-2) % Neut # (Auto) (0328-5920) /uL Lymph # (Auto) (7325-2206) /uL [place] # (Auto) (0-900) /uL Eos # (Auto) (0-450) /uL Baso # (Auto) (0-100) /uL Sodium (137-145) mmol/L Potassium (3.4-5.1) mmol/L Chloride (98-107) mmol/L Carbon Dioxide (22-32) mmol/L BUN (9-20) mg/dL Creatinine (0.66-1.25) mg/dL Estimated GFR (>60) mL/min BUN/Creatinine Ratio (6-22) Glucose (70-100) mg/dL Calcium (8.4-10.2) mg/dL Magnesium 2.4 H (1.6-2.3) mg/dL Total Bilirubin (0.2-1.3) mg/dL AST (17-59) IU/L ALT (<50) IU/L Alkaline Phosphatase (38-126) U/L Total Creatine Kinase (55-170) U/L CK-MB (CK-2) CK-MB (CK-2) Rel Index Troponin I (0.01-0.034) ng/mL Total Protein (6.3-8.2) g/dL Albumin (3.5-5.0) g/dL Globulin (1.7-4.1) g/dL Albumin/Globulin Ratio (1.0-2.8) Prolactin 28.4 H (3.7-17.9) ng/mL Urine Color Yellow Urine Appearance Clear Urine pH 6.0 (4.5-8.0) Ur Specific [place] 1.015 (1.000-1.035) Urine Protein 1+ H (Negative) Urine Glucose (UA) Negative (Negative) g/dL Urine Ketones Negative (NEGATIVE) Urine Occult Blood 1+ H (Negative) Urine Nitrate Negative (Negative) Urine Bilirubin Negative (NEGATIVE) Urine Urobilinogen 0.2 (0.2) E.U./dL Ur Leukocyte Esterase Negative (NEGATIVE) Urine RBC 1-5/hpf (0-5/HPF) Urine WBC 0-1/hpf (0-5/HPF) Ur Squamous Epith Cells 0-1 /hpf (0-5/HPF) Urine Bacteria None seen (None) Ur Culture Indicated? Cult not indicated U Opiates 300ng/mL cut Negative (Negative) Ur Oxycodone Screen Negative (Negative) Urine Methadone Screen Negative (Negative) Ur Barbiturates Screen Negative (Negative) U Tricyclic Antidepress Negative (Negative) Ur Phencyclidine Scrn Negative (Negative) Ur Amphetamines Screen Negative (Negative) U Methamphetamines Scrn Positive H (Negative) Ur MDMA Scrn (Ecstasy) Negative (Negative) U Benzodiazepines Scrn Negative (Negative) Urine Cocaine Screen Negative (Negative) U Marijuana (THC) Screen Positive H (Negative) 05/25/20 Range/Units 20:50 WBC (4.5-11.0) X10^3/uL RBC (4.5-5.9) X10^6/uL Hgb (13.5-17.5) g/dL Hct (41-53) % MCV (80-100) fL MCH (26-34) PG MCHC (30-36) % RDW (11.6-14.8) % Plt Count (150-400) X10^3/uL Neut % (Auto) (50-75) % Lymph % (Auto) (25-40) % [place] % (Auto) (3-14) % Eos % (Auto) (2-4) % Baso % (Auto) (0-2) % Neut # (Auto) (5830-7607) /uL Lymph # (Auto) (2465-4078) /uL [place] # (Auto) (0-900) /uL Eos # (Auto) (0-450) /uL Baso # (Auto) (0-100) /uL Sodium (137-145) mmol/L Potassium (3.4-5.1) mmol/L Chloride (98-107) mmol/L Carbon Dioxide (22-32) mmol/L BUN (9-20) mg/dL Creatinine (0.66-1.25) mg/dL Estimated GFR (>60) mL/min BUN/Creatinine Ratio (6-22) Glucose (70-100) mg/dL Calcium (8.4-10.2) mg/dL Magnesium (1.6-2.3) mg/dL Total Bilirubin (0.2-1.3) mg/dL AST (17-59) IU/L ALT (<50) IU/L Alkaline Phosphatase (38-126) U/L Total Creatine Kinase (55-170) U/L CK-MB (CK-2) CK-MB (CK-2) Rel Index Troponin I 0.013 (0.01-0.034) ng/mL Total Protein (6.3-8.2) g/dL Albumin (3.5-5.0) g/dL Globulin (1.7-4.1) g/dL Albumin/Globulin Ratio (1.0-2.8) Prolactin (3.7-17.9) ng/mL Urine Color Urine Appearance Urine pH (4.5-8.0) Ur Specific [place] (1.000-1.035) Urine Protein (Negative) Urine Glucose (UA) (Negative) g/dL Urine Ketones (NEGATIVE) Urine Occult Blood (Negative) Urine Nitrate (Negative) Urine Bilirubin (NEGATIVE) Urine Urobilinogen (0.2) E.U./dL Ur Leukocyte Esterase (NEGATIVE) Urine RBC (0-5/HPF) Urine WBC (0-5/HPF) Ur Squamous Epith Cells (0-5/HPF) Urine Bacteria (None) Ur Culture Indicated? U Opiates 300ng/mL cut (Negative) Ur Oxycodone Screen (Negative) Urine Methadone Screen (Negative) Ur Barbiturates Screen (Negative) U Tricyclic Antidepress (Negative) Ur Phencyclidine Scrn (Negative) Ur Amphetamines Screen (Negative) U Methamphetamines Scrn (Negative) Ur MDMA Scrn (Ecstasy) (Negative) U Benzodiazepines Scrn (Negative) Urine Cocaine Screen (Negative) U Marijuana (THC) Screen (Negative) Discharge Plan Departure Patient Disposition: Admitted As Inpatient Clinical Impression: Encephalopathy, hypertensive, Hypertensive crisis Hypertension Qualifiers: Hypertension type: essential hypertension Qualified Code(s): I10 - Essential (primary) hypertension Discharge Date/Time: 03/05/20 21:19 Admit Date/Time: 03/05/20 21:15 Admit Provider: Vahe Hou <Kalyn Marie MD - Last Filed: 03/06/20 04:34> Cosign ED Attending Cosignature Attestation: I was immediately available in the department for consultation throughout this patient's visit. I agree with documentation as above. Kalyn Marie MD
--- NOTE | 2020-03-05 17:43 | DI.CT.S_ITS ---
PROCEDURE: CT HEAD/BRAIN WO CON INDICATIONS: Seizure versus hypertensive crisis TECHNIQUE: Noncontrast 4.5 mm thick angled axial sections acquired from the foramen magnum to the vertex, with coronal and sagittal reformats. For radiation dose reduction, the following was used: automated exposure control, adjustment of mA and/or kV according to patient size. COMPARISON: [facility], CT, CT HEAD/BRAIN WO CON, 12/31/2019, 13:34. FINDINGS: Image quality: Excellent. CSF spaces: Basal cisterns are patent. No extra-axial fluid collections. The ventricles are symmetric in size and shape. Brain: No intracranial bleeds or masses. There is cerebral volume loss for age, with resultant ventricular and sulcal prominence. There are periventricular and deep white matter chronic small vessel ischemic changes. There is intracranial internal carotid artery atherosclerosis. Skull and face: Calvarium and visualized facial bones appear intact, without suspicious lesions. Sinuses: Mucosal thickening in right ethmoid and maxillary sinuses are seen. Bilateral mastoids are well aerated. IMPRESSION: 1. No CT evidence of acute intracranial pathology. No significant changes from previous study. 2. Right-sided ethmoid and maxillary sinusitis. Dictated by: Ronn Melchor M.D. on 03/05/2020 at 18:23 Approved by: Ronn Melchor M.D. on 03/05/2020 at 18:24
[2020-03-05 18:00] LABS: Add Manual Diff / Slide Review NO; Basophils Absolute Auto 100 /uL (0-100); Basophils Percent Auto 0.8 % (0-2); Eosinophils Absolute Auto 100 /uL (0-450); Hemoglobin 10.9 g/dL (13.5-17.5); Lymphocytes Absolute Auto 1900 /uL (1100-4500); Lymphocytes Percent Auto 30.6 % (25-40); Mean Corpuscular HGB Conc 33.9 % (30-36); Mean Corpuscular Hemoglobin 28.1 PG (26-34); Mean Corpuscular Volume 82.9 fL (80-100); Monocytes Absolute Auto 500 /uL (0-900); Monocytes Percent Auto 7.5 % (3-14); Neutrophils Absolute Auto 3800 /uL (1500-7000); Neutrophils Percent Auto 60.1 % (50-75); Platelet Count 210 X10^3/uL (150-400); Red Blood Cell Count 3.89 X10^6/uL (4.5-5.9); Red Cell Distribution Width 15.1 % (11.6-14.8); White Blood Cell Count 6.3 X10^3/uL (4.5-11.0)
--- NOTE | 2020-03-05 18:00 | DI.RAD.S_ITS ---
PROCEDURE: XR CHEST 1V INDICATIONS: Chest pain TECHNIQUE: One view of the chest was acquired. COMPARISON: None. FINDINGS: Surgical changes and devices: None. Lungs and pleura: Lungs are clear. No pleural effusions or pneumothorax. Mediastinum: Mediastinal contours appear normal. Heart size is normal. Bones and chest wall: No suspicious bony lesions. Overlying soft tissues appear unremarkable. IMPRESSION: No acute cardiopulmonary pathology. Dictated by: Ronn Melchor M.D. on 03/05/2020 at 18:25 Approved by: Ronn Melchor M.D. on 03/05/2020 at 18:25
[2020-03-05 18:02] LABS: Hematocrit 32.2 % (41-53)
[2020-03-05] MEDS: SODIUM CHLORIDE 0.9% 1,000 ML 125 ML IV (18:03)
[2020-03-05] MEDS: levETIRAcetam 1,000 MG in SODIUM CHLORIDE 0.9% 100 ML 440 ML IV (18:03)
[2020-03-05] MEDS: LABETALOL 20 MG/4 ML SYRINGE IV ×2 (18:05→20:47)
[2020-03-05 18:14] LABS: Creatine Kinase 80 U/L (55-170)
[2020-03-05 18:14] LABS: Alanine Aminotransferase 34 IU/L (<50); Albumin 4.3 g/dL (3.5-5.0); Alkaline Phosphatase 106 U/L (38-126); Aspartate Aminotransferase 46 IU/L (17-59); BUN Creatinine Ratio 17.8 (6-22); Bilirubin Total 0.4 mg/dL (0.2-1.3); Blood Urea Nitrogen 26 mg/dL (9-20); Calcium 9.3 mg/dL (8.4-10.2); Carbon Dioxide 21 mmol/L (22-32); Chloride 107 mmol/L (98-107); Estimated Glomerular Filt Rate 49.9 mL/min (>60); Globulin 4.4 g/dL (1.7-4.1); Glucose 91 mg/dL (70-100); HEMOLYSIS 16 (0-50); Potassium 4.1 mmol/L (3.4-5.1); Sodium 140 mmol/L (137-145); Total Protein 8.7 g/dL (6.3-8.2)
[2020-03-05 18:15] LABS: Magnesium 2.4 mg/dL (1.6-2.3)
[2020-03-05 18:26] LABS: Troponin I < 0.012 ng/mL (0.01-0.034)
[2020-03-05 18:31] LABS: Prolactin 28.4 ng/mL (3.7-17.9)
[2020-03-05 20:58] LABS: Appearance Urine UA CLEAR; Bilirubin Urine UA NEGATIVE (NEGATIVE); Color Urine UA YELLOW; Glucose Urine UA NEGATIVE (Negative); Ketones Urine UA NEGATIVE (NEGATIVE); Leukocyte Esterase Urine UA NEGATIVE (NEGATIVE); Nitrite Urine UA NEGATIVE (Negative); Occult Blood Urine UA 1+ (Negative); Protein Urine UA 1+ (Negative); Specific Gravity Urine UA 1.015 (1.000-1.035); Urobilinogen Urine UA 0.2 E.U./dL (0.2)
[2020-03-05 21:02] LABS: Bacteria Urine None Seen
[2020-03-05 21:05] LABS: Ur Creatinine Normal (Normal); Ur Specific Gravity Normal (Normal); Urine pH Normal (Normal)
[2020-03-05 21:06] LABS: UR Morphine/Opiate cutoff 300 Negative (Negative); Urine Amphetamines Negative (Negative); Urine Barbiturates Negative (Negative); Urine Benzodiazepines Negative (Negative); Urine Cocaine Negative (Negative); Urine MDMA Negative (Negative); Urine Methadone Negative (Negative); Urine Methamphetamines Positive (Negative); Urine Oxycodone Negative (Negative); Urine Phencyclidine Negative (Negative); Urine Tetrahydrocannabinol Positive (Negative); Urine Tricyclic Antidepressant Negative (Negative)
[2020-03-05] MEDS: ACETAMINOPHEN 325 MG TABLET 650 MG PO (21:10)
[2020-03-05 21:11] LABS: Culture Indicated Urine Cult Not Indicated; RBC Urine 1-5/HPF (0-5/HPF); Squamous Epithelial Cell Urine 0-1 /HPF (0-5/HPF); WBC Urine 0-1/HPF (0-5/HPF)
[2020-03-05 21:21] LABS: Troponin I 0.013 ng/mL (0.01-0.034)
[2020-03-05] MEDS: METOPROLOL ER 25 MG TABLET PO (21:57)
--- NOTE | 2020-03-05 22:51 | PC.NURSE ---
addendum: The metoporol ordered in the ED was not in our phyxis. I informed the PROJECT ENGINEERING DIRECTOR as well as the nurse taking report Patient transferred to floor at [id number]
--- NOTE | 2020-03-05 23:06 | PC.NURSE ---
Pt admitted to rm 209 per stretcher from ED - C/O 07/21 headache at this time. Placed in bed, seizure pads in place. VSS taken, BP 221/113, Metoprolol given as ordered as transferring RN stated that not available in Pyxis in the ED. IV to LAC not infusing, restarted in R wrist with 20ga. NS infusing @ 125/hr. Orders noted to transfer to ICU, transported per bed to 226 with RN in attendance.
[2020-03-05] MEDS: NICARDIPINE 25 MG in SODIUM CHLORIDE 0.9% 240 ML 50 ML IV (23:21)
--- NOTE | 2020-03-05 23:45 | P.HP_ITS ---
History of Present Illness History of Present Illness Date Patient Seen: 03/05/20 Time Patient Seen: 22:44 Chief complaint: Seizure Narrative: Mr. 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 The patient was at a friend's house when he developed a tonic colonic seizure reportedly lasting 4 minutes. It is unknown with the patient's sustained fall at the onset. The patient has no recollection of events today and appears to have retrograde amnesia. The patient was incontinent to urine at the time and did bite his tongue. Following cessation of seizure activity the patient remained unconscious for several minutes becoming awake and responsive upon arrival of EMS. The patient states he ran out of his medication 9 days ago. Patient was previously admitted under similar circumstances and presentation from 12/31/2019 to 01/02/2020. The patient has a primary care provider in [place] however he is not followed up since his admission stating he knows he should. The patient reports severe bifrontal headache left greater than right and blurring of vision in both eyes without loss of visual field. He reports no numbness or tingling in hands or feet. He acknowledges balance disorder but denies hemiparesis. He has had no recent illness, fevers or chills and denies nasal congestion or sore throat. He denies chest pain or palpitations, shortness of breath cough or wheezing. He has had no abdominal pain, heartburn, nausea or vomiting. He does report alternating constipation and diarrhea and urinary urgency. Upon arrival to the ER the patient is afebrile with temperature of 98.3?, heart rate of 95, blood pressure to 118/120, respirations of 16 saturating 100% on room air. A chest x-ray is obtained which is negative for acute cardiopulmonary findings. A CT of the head is also obtained finding no acute intracranial processes. On laboratory analysis the patient has a white count of 6.3, hemoglobin 10.9, hematocrit of 32.2 and platelets of 210. His electrolytes are within normal limits and has a BUN of 26 and creatinine 1.46. His EGFR is 49.9. His nonfasting glucose is 91. Magnesium level is 2.4. His liver functions are all within normal limits and has an albumin of 4.3. His total CK is 80 and troponin is 0.013. He has a procalcitonin level of 8.4. On urinalysis is positive protein and positive blood but negative for infection. His urine tox screen is positive for methamphetamine and marijuana. A Keppra level is ordered and is pending. In the ER the patient received Tylenol 650 mg for in his headache, labetalol 20 mg IV x 2 and metoprolol succinate 75 mg by mouth with modest and transient improvement in blood pressure on admit to ICU the patient has a blood pressure of 223/114. Patient is admitted to the medicine service for hypertensive urgency with metabolic encephalopathy status post seizure. Patient History Medical History CVA (cerebral vascular accident) (Acute) Hypertension (Acute) Seizure disorder (Acute) Surgical History History of right inguinal hernia repair (Acute) Family & Social History Family History Mother CVA (cerebral vascular accident) Father No problems noted. Sister COPD (chronic obstructive pulmonary disease) Social History: household members none Safety & Behavioral: Feels Safe in Current Yes Environment Been Physically Hurt or No Threatened By a Person Tobacco & Substance use: Smoking Status Current every day smoker alcohol intake frequency holiday/special occasion Substance Use Type does not use Comment: The patient is homeless and has been so for 3 years. The patient has remained in the [facility] but has his PCP in [place] and has not been seen in some time. Smoking: Patient endorses smoking a few cigarettes per day. Alcohol: Patient endorses rare alcohol consumption only on special occasions. Substance use: The patient endorses smoking marijuana. Code status: The patient wishes to be FULL CODE, he designates his sister Yulissa Aguilera who lives in [place] to be his surrogate decision maker. Meds Home Medications and Allergies Home Medications Medication Instructions Recorded Confirmed Type nicotine 14 patch TOPICAL DAILY 01/01/20 01/01/20 History amlodipine [Norvasc] 5 mg PO BID #60 tab 01/02/20 Rx aspirin 81 mg PO DAILY #30 tab 01/02/20 Rx atorvastatin 40 mg PO DAILY #30 tab 01/02/20 Rx buprenorphine-naloxone 2 film BUCCAL Q24H #30 each 01/02/20 Rx buprenorphine-naloxone [Suboxone] 3 film BUCCAL DAILY #3 ea 01/02/20 Rx carvedilol [Coreg] 3.125 mg PO BID #60 tab 01/02/20 Rx levetiracetam 500 mg PO BID #60 tab 01/02/20 Rx lisinopril 20 mg PO BID #60 tab 01/02/20 Rx Allergies Allergy/AdvReac Type Severity Reaction Status Date / Time No Known Drug Allergies Allergy Verified 12/31/19 13:35 Review of Systems Review of Systems ROS: Yes All systems reviewed with the patient and are negative except as otherwise documented Exam Vital Signs (past 8 hours): - 03/05/20 17:27 03/05/20 18:05 03/05/20 18:41 Temperature 98.3 F Pulse Rate 95 H 88 72 Respiratory Rate 16 17 Blood Pressure 218/120 H 202/115 H Blood Pressure [Right Arm] 165/106 H Pulse Oximetry 100 99 03/05/20 19:25 03/05/20 20:57 03/05/20 21:57 Temperature Pulse Rate 69 64 62 Respiratory Rate 14 15 Blood Pressure 207/113 H Blood Pressure [Right Arm] 221/99 H 222/111 H Pulse Oximetry 100 99 03/05/20 22:07 Temperature 98.1 F Pulse Rate 62 Respiratory Rate 16 Blood Pressure 207/113 H Blood Pressure [Right Arm] Pulse Oximetry 100 Oxygen Delivery Method Room Air Narrative Exam Narrative: GENERAL APPEARANCE: well developed, adequately nourished, unkempt male who is slightly confused and in pain. HEENT: Atraumatic, slight left facial droop, photophobic, pupils equal and reactive, conjunctiva clear, sclera anicteric, no sinus tenderness to percussion, no rhinorrhea, mucous membranes are moist, soft tissue injury right lateral tongue. NECK/THYROID: neck supple, preserved AROM, no JVD, no carotid bruit, no thyromegaly, trachea midline. LYMPH NODES: no cervical or supraclavicular lymphadenopathy. SKIN: [place], warm and dry, no visible rashes or petechiae. HEART: regular rate and rhythm, S1 split S2, no murmur, no rubs or gallops, brisk capillary refill, no edema LUNGS: clear to auscultation bilaterally, no coarseness crackles or wheezing, no cough present CHEST: Symmetrical movement, no accessory muscle use, shallow tidal volume, no pain to AP and lateral compression ABDOMEN: Soft, no distention, no abdominal tenderness, no organomegaly, no flank tenderness, active bowel tones. BACK: Normal curvature, nontender to palpation, no CVA tenderness on percussion EXTREMITIES: moves all extremities, strength is 5/5 and symmetrical, pain posterior right heel, no deformities or joint effusions. NEUROLOGIC: AAO x person and time, confused to [place] and unable to recall events, cranial nerves II-XII grossly intact, sensation intact to light touch, hearing grossly normal to speech. PSYCH: Patient lethargic, blunted affect and irritable but remains cooperative with stable behavior Objective Labs Result Diagrams: 03/05/20 16:47 03/05/20 16:47 Labs: Laboratory Results - last 24 hr 03/05/20 03/05/20 03/05/20 16:45 16:47 16:47 WBC 6.3 RBC 3.89 L Hgb 10.9 L Hct 32.2 L MCV 82.9 MCH 28.1 MCHC 33.9 RDW 15.1 H Plt Count 210 Neut % (Auto) 60.1 Lymph % (Auto) 30.6 [place] % (Auto) 7.5 Eos % (Auto) 1.0 L Baso % (Auto) 0.8 Neut # (Auto) 3800 Lymph # (Auto) 1900 [place] # (Auto) 500 Eos # (Auto) 100 Baso # (Auto) 100 Sodium 140 Potassium 4.1 Chloride 107 Carbon Dioxide 21 L BUN 26 H Creatinine 1.46 H Estimated GFR 49.9 L BUN/Creatinine Ratio 17.8 Glucose 91 Calcium 9.3 Magnesium Total Bilirubin 0.4 AST 46 ALT 34 Alkaline Phosphatase 106 Total Creatine Kinase 80 CK-MB (CK-2) TNP CK-MB (CK-2) Rel Index TNP Troponin I < 0.012 Total Protein 8.7 H Albumin 4.3 Globulin 4.4 H Albumin/Globulin Ratio 1.0 Prolactin Urine Color Urine Appearance Urine pH Ur Specific [place] Urine Protein Urine Glucose (UA) Urine Ketones Urine Occult Blood Urine Nitrate Urine Bilirubin Urine Urobilinogen Ur Leukocyte Esterase Urine RBC Urine WBC Ur Squamous Epith Cells Urine Bacteria Ur Culture Indicated? U Opiates 300ng/mL cut Ur Oxycodone Screen Urine Methadone Screen Ur Barbiturates Screen U Tricyclic Antidepress Ur Phencyclidine Scrn Ur Amphetamines Screen U Methamphetamines Scrn Ur MDMA Scrn (Ecstasy) U Benzodiazepines Scrn Urine Cocaine Screen U Marijuana (THC) Screen 03/05/20 03/05/20 03/05/20 16:47 20:48 20:48 WBC RBC Hgb Hct MCV MCH MCHC RDW Plt Count Neut % (Auto) Lymph % (Auto) [place] % (Auto) Eos % (Auto) Baso % (Auto) Neut # (Auto) Lymph # (Auto) [place] # (Auto) Eos # (Auto) Baso # (Auto) Sodium Potassium Chloride Carbon Dioxide BUN Creatinine Estimated GFR BUN/Creatinine Ratio Glucose Calcium Magnesium 2.4 H Total Bilirubin AST ALT Alkaline Phosphatase Total Creatine Kinase CK-MB (CK-2) CK-MB (CK-2) Rel Index Troponin I Total Protein Albumin Globulin Albumin/Globulin Ratio Prolactin 28.4 H Urine Color Yellow Urine Appearance Clear Urine pH 6.0 Ur Specific [place] 1.015 Urine Protein 1+ H Urine Glucose (UA) Negative Urine Ketones Negative Urine Occult Blood 1+ H Urine Nitrate Negative Urine Bilirubin Negative Urine Urobilinogen 0.2 Ur Leukocyte Esterase Negative Urine RBC 1-5/hpf Urine WBC 0-1/hpf Ur Squamous Epith Cells 0-1 /hpf Urine Bacteria None seen Ur Culture Indicated? Cult not indicated U Opiates 300ng/mL cut Negative Ur Oxycodone Screen Negative Urine Methadone Screen Negative Ur Barbiturates Screen Negative U Tricyclic Antidepress Negative Ur Phencyclidine Scrn Negative Ur Amphetamines Screen Negative U Methamphetamines Scrn Positive H Ur MDMA Scrn (Ecstasy) Negative U Benzodiazepines Scrn Negative Urine Cocaine Screen Negative U Marijuana (THC) Screen Positive H 03/05/20 20:50 WBC RBC Hgb Hct MCV MCH MCHC RDW Plt Count Neut % (Auto) Lymph % (Auto) [place] % (Auto) Eos % (Auto) Baso % (Auto) Neut # (Auto) Lymph # (Auto) [place] # (Auto) Eos # (Auto) Baso # (Auto) Sodium Potassium Chloride Carbon Dioxide BUN Creatinine Estimated GFR BUN/Creatinine Ratio Glucose Calcium Magnesium Total Bilirubin AST ALT Alkaline Phosphatase Total Creatine Kinase CK-MB (CK-2) CK-MB (CK-2) Rel Index Troponin I 0.013 Total Protein Albumin Globulin Albumin/Globulin Ratio Prolactin Urine Color Urine Appearance Urine pH Ur Specific [place] Urine Protein Urine Glucose (UA) Urine Ketones Urine Occult Blood Urine Nitrate Urine Bilirubin Urine Urobilinogen Ur Leukocyte Esterase Urine RBC Urine WBC Ur Squamous Epith Cells Urine Bacteria Ur Culture Indicated? U Opiates 300ng/mL cut Ur Oxycodone Screen Urine Methadone Screen Ur Barbiturates Screen U Tricyclic Antidepress Ur Phencyclidine Scrn Ur Amphetamines Screen U Methamphetamines Scrn Ur MDMA Scrn (Ecstasy) U Benzodiazepines Scrn Urine Cocaine Screen U Marijuana (THC) Screen Assessment & Plan Assessment & Plan narrative: Guicho Aguilera is a 54-year-old male with past medical history significant for hypertension and seizure disorder presented after witnessed 4 minutes tonic- clonic seizure. 1. Acute metabolic encephalopathy, present on admission, active. -patient with altered sensorium with severe headache and disorientation stating he is at a hospital in [place]. The patient's encephalopathy has S bleed related to severe hypertension and less likely postictal sequelae since he is 6 hours post seizure. -CT brain without contrast did not demonstrate any acute intracranial abnormalities. -Urine tox screen positive for methamphetamine and marijuana. -will treat underlying etiology of hypertension and seizure disorder as outlined below. -the patient takes buprenophine-naloxone 8-2 mg 2 films daily, ordered oxycodone 5 mg by mouth every 4 hours as needed for moderate pain. -ordered Tylenol 650 mg by mouth every 4 hours as needed for mild pain or fever. 2. Acute hypertensive emergency, history of hypertension, present on admission, active. -patient states he ran out of antihypertensive medications 9 days ago and reports having a severe frontal headache right greater than left with associated blurring of vision, seizure activity possibly sequelae of severe hypertension. -blood pressure on arrival to the ER was 218/120. Patient received 2 doses of l abetalol 20 mg IV and oral metoprolol with modest improvement in blood pressure to 207/113. Upon arrival to the ICU the patient has a blood pressure 223/114. -ordered nicardipine drip with titrate to blood pressure less than 180 to prevent watershed affect -will continue regimen of height dry hypertensives including lisinopril 20 mg twice daily, amlodipine 5 mg daily and carvedilol 3.125 mg twice daily. -Echocardiogram unremarkable other than mild hypertensive heart disease. 3. Seizure disorder, breast on admission, active. -patient states he ran out of KeGreen [employer] Growra 9 days ago. Last known seizure was when patient was admitted 12/31/2019. -It is unclear whether seizure was related to hypertension or true underlying disorder and patient has not followed up with primary care for further invest igation. Prior admission was believed to be first-time seizure and occurring in association an episode severe hypertension, or may be sequelae to prior CVA May 2019. -witnessed 4 minutes tonic colonic seizure prior to admission, was initially unresponsive followed by postictal state. -prolactin level was 28.4. Keppra level ordered and is pending. -patient received Keppra 1 g IV in the emergency department, will continue Keppra 500 mg twice daily. 4. History of CVA with left hemiparesis, chronic, improved -Patient had CVA in May 2019, patient denies residual symptoms other than balance and describes no falls or trauma. -patient with slight left facial droop without new lateralizing symptoms. -if encephalopathy does not improve with blood pressure control, may consider MRI. -continue home regimen of aspirin 81 mg daily and atorvastatin 40 mg daily. 5. Normocytic anemia, chronic, present on admission, stable -CBC upon admission finds hemoglobin of 10.9 hematocrit of 32.2. On prior admission the patient's hemoglobin was 10.5. -likely etiology is his chronic kidney disease stage 3. -will follow H&H. 6. Chronic kidney disease type 3, present on admission, stable -admission labs reflect a BUN of 26 and creatinine of 1.46. At the time of prior admission creatinine is 1.55. -chronic kidney disease most likely related to inadequately treated hypertension. -Avoided nephrotoxic agents and renal dose medications as indicated. -will follow-up renal function on chemistries. 7. Homelessness. -Patient states he has been homeless for with 3 years staying in [place] with friends. -He is established with PCP in [place] whom he has not seen since his last hospitalization. -requested consult with [facility] for continued and local resources. Isolation: None VTE prophylaxis: SCDs, heparin IV fluid: Normal saline 100 cc/hour Diet: Heart healthy Code status: FULL CODE, patient designates his friend Messi to be his surrogate decision maker. The patient is admitted to the intensive care unit following tonic clonic seizure, hypertensive urgency with profound headache and neurological changes. He is started on a nicardipine infusion to achieve blood pressure control. The patient is admitted as an inpatient with expected length of stay to be greater than 2 midnights. Critical care time: 50 minutes is spent in direct [id number] with initial evaluation and re-evaluation. COVID-19 COVID-19 status: Not tested Scores [facility] [place] coma scale eye opening: Spontaneous [place] coma scale verbal response: Confused [place] coma scale motor response: Obey commands [place] coma scale total score: 14
[2020-03-06] VITALS (11 sets, daily range): BP systolic 147–176; BP diastolic 83–116; PULSE 57–73; RESP 12–19; TEMP 36.7–36.8; O2SAT 93–100; BMI 23.4
[2020-03-06] MEDS: OXYCODONE IR 5 MG TABLET PO ×2 (00:03→04:53)
[2020-03-06] MEDS: SODIUM CHLORIDE 0.9% 1,000 ML 100 ML IV ×2 (00:20→06:30)
[2020-03-06 00:36] LABS: Troponin I 0.016 ng/mL (0.01-0.034)
[2020-03-06] MEDS: DEXTROSE 50 % IN WATER 25 GM/50 ML SYRINGE IV (01:06)
[2020-03-06 04:55] LABS: Add Manual Diff / Slide Review NO; Basophils Absolute Auto 0 /uL (0-100); Basophils Percent Auto 0.8 % (0-2); Eosinophils Absolute Auto 100 /uL (0-450); Eosinophils Percent Auto 1.2 % (2-4); Hematocrit 30.9 % (41-53); Hemoglobin 10.3 g/dL (13.5-17.5); Lymphocytes Absolute Auto 2400 /uL (1100-4500); Lymphocytes Percent Auto 41.8 % (25-40); Mean Corpuscular HGB Conc 33.5 % (30-36); Mean Corpuscular Hemoglobin 27.7 PG (26-34); Mean Corpuscular Volume 82.6 fL (80-100); Monocytes Absolute Auto 300 /uL (0-900); Monocytes Percent Auto 5.7 % (3-14); Neutrophils Absolute Auto 3000 /uL (1500-7000); Neutrophils Percent Auto 50.5 % (50-75); Platelet Count 193 X10^3/uL (150-400); Red Blood Cell Count 3.74 X10^6/uL (4.5-5.9); Red Cell Distribution Width 15.2 % (11.6-14.8); White Blood Cell Count 5.8 X10^3/uL (4.5-11.0)
[2020-03-06 05:03] LABS: BUN Creatinine Ratio 17.6 (6-22); Blood Urea Nitrogen 23 mg/dL (9-20); Calcium 8.7 mg/dL (8.4-10.2); Carbon Dioxide 24 mmol/L (22-32); Chloride 108 mmol/L (98-107); Estimated Glomerular Filt Rate 56.6 mL/min (>60); Glucose 65 mg/dL (70-100); HEMOLYSIS < 15 (0-50); Potassium 3.7 mmol/L (3.4-5.1); Sodium 139 mmol/L (137-145)
[2020-03-06] MEDS: AMLODIPINE 5 MG TABLET PO (07:58)
[2020-03-06] MEDS: lisinopriL 20 MG TABLET PO (07:58)
[2020-03-06] MEDS: ASPIRIN EC 81 MG TABLET PO (07:58)
[2020-03-06] MEDS: HEPARIN 5,000 UNIT/ML VIAL 5000 UNIT SUBCUT (07:59)
[2020-03-06] MEDS: levETIRAcetam 250 MG TABLET 500 MG PO (07:59)
[2020-03-06] MEDS: BUPRENORPHINE/NALOXONE 8MG/2MG 1 TAB 2 TAB SL (08:01)
[2020-03-06] MEDS: carvediloL 3.125 MG TABLET PO (08:03)
[2020-03-06] MEDS: PANTOPRAZOLE 40 MG VIAL IV (08:13)
--- NOTE | 2020-03-06 09:10 | PM.DS.1 ---
History of Present Illness History of Present Illness Date Patient Seen: 03/05/20 Chief complaint: Seizure Narrative: Written by Vahe WAGNER: Mr. 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 The patient was at a friend's house when he developed a tonic colonic seizure reportedly lasting 4 minutes. It is unknown with the patient's sustained fall at the onset. The patient has no recollection of events today and appears to have retrograde amnesia. The patient was incontinent to urine at the time and did bite his tongue. Following cessation of seizure activity the patient remained unconscious for several minutes becoming awake and responsive upon arrival of EMS. The patient states he ran out of his medication 9 days ago. Patient was previously admitted under similar circumstances and presentation from 12/31/2019 to 01/02/2020. The patient has a primary care provider in [place] however he is not followed up since his admission stating he knows he should. The patient reports severe bifrontal headache left greater than right and blurring of vision in both eyes without loss of visual field. He reports no numbness or tingling in hands or feet. He acknowledges balance disorder but denies hemiparesis. He has had no recent illness, fevers or chills and denies nasal congestion or sore throat. He denies chest pain or palpitations, shortness of breath cough or wheezing. He has had no abdominal pain, heartburn, nausea or vomiting. He does report alternating constipation and diarrhea and urinary urgency. Upon arrival to the ER the patient is afebrile with temperature of 98.3?, heart rate of 95, blood pressure to 118/120, respirations of 16 saturating 100% on room air. A chest x-ray is obtained which is negative for acute cardiopulmonary findings. A CT of the head is also obtained finding no acute intracranial processes. On laboratory analysis the patient has a white count of 6.3, hemoglobin 10.9, hematocrit of 32.2 and platelets of 210. His electrolytes are within normal limits and has a BUN of 26 and creatinine 1.46. His EGFR is 49.9. His nonfasting glucose is 91. Magnesium level is 2.4. His liver functions are all within normal limits and has an albumin of 4.3. His total CK is 80 and troponin is 0.013. He has a procalcitonin level of 8.4. On urinalysis is positive protein and positive blood but negative for infection. His urine tox screen is positive for methamphetamine and marijuana. A Keppra level is ordered and is pending. In the ER the patient received Tylenol 650 mg for in his headache, labetalol 20 mg IV x 2 and metoprolol succinate 75 mg by mouth with modest and transient improvement in blood pressure on admit to ICU the patient has a blood pressure of 223/114. Patient is admitted to the medicine service for hypertensive urgency with metabolic encephalopathy status post seizure. Discharge Providers Provider Date of admission: 03/05/20 21:15 Discharge Date: 03/06/20 Primary care physician: Tyler Spencer Consults: 03/05/20 Consult to [facility] [place] - Fly Fishing Guide Urgent Comment: Homeless, 2nd admit in 3 months for lack of meds. DIRECTOR ATHLETIC Consult: [facility] Need 03/05/20 22:28 Consult to Discharge Planning Routine Comment: Discharge provider: Conchita Floyd DO Summary Hospital Course Discharge Diagnosis: 1. Acute metabolic encephalopathy, present on admission. Resolved. 2. Acute hypertensive emergency in setting of chronic uncontrolled hypertension, present on admission. Acute hypertensive emergency resolved. 3. Seizure disorder,chronic, present on admission. Stable. 4. History of CVA with left hemiparesis, chronic, present on admission. Stable. 5. Chronic kidney disease type 3, present on admission. Stable 6. Normocytic anemia, chronic, present on admission. Stable. 7. Homelessness. Hospital Course: Guicho Aguilera is a 54-year-old male with a past medical history significant for hypertension and seizure disorder who presented to the ED via EMS after witnessed 4 minute tonic-clonic seizure. 1. Acute metabolic encephalopathy, present on admission. Resolved. -Patient presented with altered sensorium with severe headache and disorientation stating he is at a hospital in [place]. Secondary to severe hypertension and postictal sequelae (presented 6 hours post seizure). -CT brain without contrast did not demonstrate any acute intracranial abnormalities. -Urine tox screen positive for methamphetamine and marijuana. -Treated underlying etiology of hypertension and seizure disorder as outlined below. 2. Acute hypertensive emergency in setting of chronic uncontrolled hypertension, present on admission. Acute hypertensive emergency resolved. -Patient ran out of all medications including his antihypertensive medications 9 days prior to admission. Patient reported severe frontal headache right greater than left with associated blurring of vision that improved with treatment/restarting anti-hypertensives and anti-epileptics. Patient had a seizure which could possibly sequelae of severe hypertension versus due to not taking anti-epileptic as he ran out of this medication as well. -Initial blood pressure on arrival to the ED was 218/120. Patient received 2 doses of labetalol 20 mg IV and oral metoprolol with modest improvement in blood pressure to 207/113. Upon arrival to the ICU the patient has a blood pressure 223/114. -Echocardiogram unremarkable other than mild hypertensive heart disease. -Urine tox screen positive for methamphetamine which undoubtedly plays a role in uncontrolled hypertension and patient was counseled extensively on cessation. Consulted DIRECTOR ATHLETIC and we appreciate her time and recommendations. -Started nicardipine gtt and initially titrated to SBP < 180 mmHg to prevent watershed affect and slowly titrated off as oral anti-hypertensives were restarted and BP remained controlled. -Continued lisinopril 20 mg twice daily, amlodipine 5 mg twice daily and carvedilol 3.125 mg twice daily. SBP 148/87 at time of discharge. 3. Seizure disorder,chronic, present on admission. Stable. -Patient ran out of all medications including his anti-epileptic medication 9 days prior to admission. Last known seizure was when patient was admitted 12/31/2019. -It is unclear whether seizure was related to hypertension or true underlying seizure disorder and patient has not followed up with primary care for further investigation. Prior admission was believed to be first-time seizure and occurring in association with an episode of severe hypertension, or may be sequelae to prior CVA May 2019. -Patient had witnessed 4 minute tonic colonic seizure prior to admission. Patient was initially unresponsive followed by postictal state. -Prolactin level was 28.4. Keppra level ordered and pending. -Received Keppra loading dose 1 g IV x 1 in the emergency department. Continued Keppra 500 mg twice daily. 4. History of CVA with left hemiparesis, chronic, present on admission. Stable. -Patient had CVA in May 2019. Patient denies residual symptoms other than decreased balance. Patient denies falls or trauma. -Patient with slight left facial droop without new lateralizing symptoms. -Continued home regimen of aspirin 81 mg daily and atorvastatin 40 mg daily. 5. Chronic kidney disease type 3, present on admission. Stable -Initial creatinine 1.46 and at baseline. Baseline creatinine on previous admission 1.4-1.5. Chronic kidney disease most likely related to inadequately treated hypertension. -Avoided nephrotoxic agents and renal dose medications as indicated. -Continued to monitor creatinine daily. 6. Normocytic anemia, chronic, present on admission. Stable. -Likely secondary to anemia of chronic kidney disease. -Initial hemoglobin 10.9 and hematocrit 32.2 and at baseline. Baseline hemoglobin on previous admission 10.5. -Continued to monitor CBC daily. 7. Homelessness. -Patient states he has been homeless for 3 years staying in [place] with friends. -He is established with PCP in [place] whom he has not seen since his last hospitalization. -Consulted DIRECTOR ATHLETIC for to provide any local resources and we appreciate her time and recommendations. Exam Vital Signs (past 8 hours): - 03/06/20 01:55 03/06/20 03:00 03/06/20 04:00 Temperature Pulse Rate 71 65 64 Respiratory Rate 14 15 12 Blood Pressure 160/86 H 158/87 H 162/116 H Pulse Oximetry 94 93 99 03/06/20 05:00 03/06/20 06:00 03/06/20 06:59 Temperature 98.1 F Pulse Rate 70 64 57 L Respiratory Rate 19 13 14 Blood Pressure 163/89 H 157/84 H 176/87 H Pulse Oximetry 100 100 100 03/06/20 08:00 Temperature 98.1 F Pulse Rate 57 L Respiratory Rate 19 Blood Pressure 148/87 H Pulse Oximetry 100 Oxygen Delivery Method Room Air Oxygen Flow Rate 0 Narrative Exam Narrative: General: Middle-aged male sitting in bed and in no acute distress, appears older than stated age, well-developed, well-nourished, slightly slowed mentation but otherwise appropriately interactive. HEENT: Normocephalic, atraumatic. External ears without defect. Pupils equal, round, and reactive to light. Anicteric sclerae, moist conjunctivae, and no lid lag. Oropharynx free of erythema and cobble stoning with moist mucosa. Neck: Supple with full range of motion. No jugular venous distension. No lymphadenopathy or thyromegaly. Cardiovascular: Regular rate and rhythm without murmurs, rubs, or gallops appreciated. Pulmonary: Clear to auscultation bilaterally without crackles, wheezes, or rhonchi. Normal respiratory effort with no use of accessory muscles. Abdomen: Soft, bowel sounds present, nontender, nondistended. No hepatosplenomegaly or masses appreciated. Extremities: No clubbing, cyanosis or edema. Skin: Normal temperature, turgor, and texture; no rash, ulcers, or subcutaneous nodules appreciated. Neurological: Cranial nerves grossly intact. No focal neurological deficits. Previous slight left-sided facial droop resolved. Psychiatric: Slightly slowed mentation. Normal mood and affect. Alert and oriented to person, place, and time. Objective Labs Result Diagrams: 03/06/20 04:30 03/06/20 04:30 Labs: Laboratory Results - last 24 hr 03/05/20 03/05/20 03/05/20 16:45 16:47 16:47 WBC 6.3 RBC 3.89 L Hgb 10.9 L Hct 32.2 L MCV 82.9 MCH 28.1 MCHC 33.9 RDW 15.1 H Plt Count 210 Neut % (Auto) 60.1 Lymph % (Auto) 30.6 [place] % (Auto) 7.5 Eos % (Auto) 1.0 L Baso % (Auto) 0.8 Neut # (Auto) 3800 Lymph # (Auto) 1900 [place] # (Auto) 500 Eos # (Auto) 100 Baso # (Auto) 100 Sodium 140 Potassium 4.1 Chloride 107 Carbon Dioxide 21 L BUN 26 H Creatinine 1.46 H Estimated GFR 49.9 L BUN/Creatinine Ratio 17.8 Glucose 91 Calcium 9.3 Magnesium Total Bilirubin 0.4 AST 46 ALT 34 Alkaline Phosphatase 106 Total Creatine Kinase 80 CK-MB (CK-2) TNP CK-MB (CK-2) Rel Index TNP Troponin I < 0.012 Total Protein 8.7 H Albumin 4.3 Globulin 4.4 H Albumin/Globulin Ratio 1.0 Prolactin Urine Color Urine Appearance Urine pH Ur Specific [place] Urine Protein Urine Glucose (UA) Urine Ketones Urine Occult Blood Urine Nitrate Urine Bilirubin Urine Urobilinogen Ur Leukocyte Esterase Urine RBC Urine WBC Ur Squamous Epith Cells Urine Bacteria Ur Culture Indicated? U Opiates 300ng/mL cut Ur Oxycodone Screen Urine Methadone Screen Ur Barbiturates Screen U Tricyclic Antidepress Ur Phencyclidine Scrn Ur Amphetamines Screen U Methamphetamines Scrn Ur MDMA Scrn (Ecstasy) U Benzodiazepines Scrn Urine Cocaine Screen U Marijuana (THC) Screen 03/05/20 03/05/20 03/05/20 16:47 20:48 20:48 WBC RBC Hgb Hct MCV MCH MCHC RDW Plt Count Neut % (Auto) Lymph % (Auto) [place] % (Auto) Eos % (Auto) Baso % (Auto) Neut # (Auto) Lymph # (Auto) [place] # (Auto) Eos # (Auto) Baso # (Auto) Sodium Potassium Chloride Carbon Dioxide BUN Creatinine Estimated GFR BUN/Creatinine Ratio Glucose Calcium Magnesium 2.4 H Total Bilirubin AST ALT Alkaline Phosphatase Total Creatine Kinase CK-MB (CK-2) CK-MB (CK-2) Rel Index Troponin I Total Protein Albumin Globulin Albumin/Globulin Ratio Prolactin 28.4 H Urine Color Yellow Urine Appearance Clear Urine pH 6.0 Ur Specific [place] 1.015 Urine Protein 1+ H Urine Glucose (UA) Negative Urine Ketones Negative Urine Occult Blood 1+ H Urine Nitrate Negative Urine Bilirubin Negative Urine Urobilinogen 0.2 Ur Leukocyte Esterase Negative Urine RBC 1-5/hpf Urine WBC 0-1/hpf Ur Squamous Epith Cells 0-1 /hpf Urine Bacteria None seen Ur Culture Indicated? Cult not indicated U Opiates 300ng/mL cut Negative Ur Oxycodone Screen Negative Urine Methadone Screen Negative Ur Barbiturates Screen Negative U Tricyclic Antidepress Negative Ur Phencyclidine Scrn Negative Ur Amphetamines Screen Negative U Methamphetamines Scrn Positive H Ur MDMA Scrn (Ecstasy) Negative U Benzodiazepines Scrn Negative Urine Cocaine Screen Negative U Marijuana (THC) Screen Positive H 03/05/20 03/05/20 03/06/20 20:50 23:55 04:30 WBC 5.8 RBC 3.74 L Hgb 10.3 L Hct 30.9 L MCV 82.6 MCH 27.7 MCHC 33.5 RDW 15.2 H Plt Count 193 Neut % (Auto) 50.5 Lymph % (Auto) 41.8 H [place] % (Auto) 5.7 Eos % (Auto) 1.2 L Baso % (Auto) 0.8 Neut # (Auto) 3000 Lymph # (Auto) 2400 [place] # (Auto) 300 Eos # (Auto) 100 Baso # (Auto) 0 Sodium Potassium Chloride Carbon Dioxide BUN Creatinine Estimated GFR BUN/Creatinine Ratio Glucose Calcium Magnesium Total Bilirubin AST ALT Alkaline Phosphatase Total Creatine Kinase CK-MB (CK-2) CK-MB (CK-2) Rel Index Troponin I 0.013 0.016 Total Protein Albumin Globulin Albumin/Globulin Ratio Prolactin Urine Color Urine Appearance Urine pH Ur Specific [place] Urine Protein Urine Glucose (UA) Urine Ketones Urine Occult Blood Urine Nitrate Urine Bilirubin Urine Urobilinogen Ur Leukocyte Esterase Urine RBC Urine WBC Ur Squamous Epith Cells Urine Bacteria Ur Culture Indicated? U Opiates 300ng/mL cut Ur Oxycodone Screen Urine Methadone Screen Ur Barbiturates Screen U Tricyclic Antidepress Ur Phencyclidine Scrn Ur Amphetamines Screen U Methamphetamines Scrn Ur MDMA Scrn (Ecstasy) U Benzodiazepines Scrn Urine Cocaine Screen U Marijuana (THC) Screen 03/06/20 04:30 WBC RBC Hgb Hct MCV MCH MCHC RDW Plt Count Neut % (Auto) Lymph % (Auto) [place] % (Auto) Eos % (Auto) Baso % (Auto) Neut # (Auto) Lymph # (Auto) [place] # (Auto) Eos # (Auto) Baso # (Auto) Sodium 139 Potassium 3.7 Chloride 108 H Carbon Dioxide 24 BUN 23 H Creatinine 1.31 H Estimated GFR 56.6 L BUN/Creatinine Ratio 17.6 Glucose 65 L Calcium 8.7 Magnesium Total Bilirubin AST ALT Alkaline Phosphatase Total Creatine Kinase CK-MB (CK-2) CK-MB (CK-2) Rel Index Troponin I Total Protein Albumin Globulin Albumin/Globulin Ratio Prolactin Urine Color Urine Appearance Urine pH Ur Specific [place] Urine Protein Urine Glucose (UA) Urine Ketones Urine Occult Blood Urine Nitrate Urine Bilirubin Urine Urobilinogen Ur Leukocyte Esterase Urine RBC Urine WBC Ur Squamous Epith Cells Urine Bacteria Ur Culture Indicated? U Opiates 300ng/mL cut Ur Oxycodone Screen Urine Methadone Screen Ur Barbiturates Screen U Tricyclic Antidepress Ur Phencyclidine Scrn Ur Amphetamines Screen U Methamphetamines Scrn Ur MDMA Scrn (Ecstasy) U Benzodiazepines Scrn Urine Cocaine Screen U Marijuana (THC) Screen Discharge Plan Discharge Plan Patient Disposition: Home Discharge comment: You are being discharged home. You had a seizure and highly elevated blood pressure due to running out of your medications. Please do not let this happen again as this can be life threatening. If you run out of your medications and your pharmacy is unable to reach your primary care physician, Dr. Gomez, please call the clinic and make an appointment with your him or another provider. You have been provided a month's worth of your home prescriptions. Please make an appointment with your primary care provider, Dr. Gomez or another provider, in the next 1 week regarding your hospitalization. Discharge orders & Medications Prescriptions: Continued nicotine 14 mg/24 hr patch 24 hour 14 patch topical DAILY RF: 0 buprenorphine-naloxone [Suboxone] 8-2 mg film 1 film sublingual TID RF: 0 atorvastatin 40 mg tablet 40 mg PO DAILY Qty: 30 RF: 0 levetiracetam 500 mg tablet 500 mg PO BID Qty: 60 RF: 0 lisinopril 20 mg tablet 20 mg PO BID Qty: 60 RF: 0 amlodipine [Norvasc] 5 mg Tablet 5 mg PO BID Qty: 60 RF: 0 aspirin 81 mg tablet,delayed release (DR/EC) 81 mg PO DAILY Qty: 30 RF: 0 carvedilol [Coreg] 3.125 mg Tablet 3.125 mg PO BID Qty: 60 RF: 0 Follow up/Referrals: [facility] [Provider Group] - 03/13/20 9:20 am (Follow up with your primary care provider, Dr. Gomez, on 03/13/20 at 0920 AM. Please call the office [facility] if you are unable to make it to this appointment so that you may be rescheduled in a timely manner. ) Diet/Activity/Treatments Diet: Low-fat, Low-sodium and Low-cholesterol Activity: Activity as tolerated Visit Report/Discharge Packet Instructions: The Mediterranean Diet and Good Health, The DASH Diet, DI for Seizure Disorder -- Adult, DI for Malignant Hypertension Visit Report Forms: Patient Portal/API, Stroke Signs & Symptoms Discharge Data Attending Provider: Vahe Hou Admit Date/Time: 03/05/20 21:15 Discharges patient from system. Discharge Date/Time: 03/06/20 12:10 Quality VTE Deep Vein Thrombosis/Pulmonary Embolism Present on Admission: No
--- NOTE | 2020-03-06 09:56 | PC.NURSE ---
Addendum entered by Kodak Velázquez R.N. 03/06/20 12:33: Pt transferred independently to w/c and was escorted to ER exit by this RN with all of his belongings. Gave pt brocure re substance abuse. Pt left in medicaid transport vehicle in no distress. Addendum entered by Kodak Velázquez R.N. 03/06/20 11:41: D/c packet given to pt. Reviewed educational material, disease process, medications. Discussed substance abuse and cessation. Pt became very defensive regarding teaching and declined further information at this time. Encouraged pt to seek advice and treatment options from his primary care provider. Educated pt to effects of illicit drug use as well as it's relationship to his elevated blood pressure. He verbalizes understanding of teaching. Spoke with WAYBILL CLERK regarding transportation and waiting on time for medicaid van to pick pt up. PIV removed as charted and surveillance monitor discontinued. Pt dressed himself and is gathering his own belongings. Addendum entered by Kodak Velázquez R.N. 03/06/20 10:38: Reported BP to Dr. Floyd. No new orders received at this time. Dr. Floyd states this may be an expected finding r/t substance abuse and pt not taking his normal medications for extended period of time. Original Note: Pt AO x3, mildly forgetful and asking appropriate questions about plan of care and events leading up to hospitalization. He is denying any pain, dizziness/lightheadedness, vision changes, chest pain, palpitations, headache. He is tolerated PO food/fluids without n/v. Denies current constipation. Voiding without difficulty. Pt states he has used a cane for mobility in the past but someone has likely stolen it so he has been using no assistive devices. He denies falling. He states he has been unable to obtain refills for medications from his PCP so he hasn't been taking his blood pressure and seizure medications. His home med rec is completed based on external med rec and pt report. Pt assisted up to ambulate in hallway with gait belt and SBA. Pt reports intermittent chronic pain to RLE which causes him to sometimes walk on the heel of his foot. His gait is fairly steady and he was able to ambulate about 200 feet in the hallway without distress. Returned to bed and reassessed BP 172/94 (125) confirmed with manual cuff pressure. Pt denies headache, chest pain, or symptoms of. He states this BP is an improvement from his baseline. Placed call light in easy reach. D/c orders received. Will discuss plan with hospitalist.
--- NOTE | 2020-03-06 13:51 | CM.DANOTE ---
DCP/Assessment: Reviewed chart. Patient is a 54yr old male admitted to [facility] with complaints of seizure. Patient with no PCP listed. Primary payor is 1)[facility] 2)Medicaid. Met briefly with patient explained IMPLEMENTATION MANAGER role. Patient requesting to leave the hospital today. Patient reports that he will be staying at his friend's residence in [place]. Patient denies any d/c planning needs except a ride CM/Wiping Rag Washer Gaby Acosta completed Medicaid transportation form and faxed to [facility]. 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 Patient instructed that he needs to follow up with PCP for routing medications. Patient was stressed the importance of taking his medications or he is at high risk for continued medical issues. Patient's tox screen positive for methamphetamine and marijuana. Patient shows no signs of wanting to quit. Brochure for [facility] provided to patient upon d/c for assistance with MH/substance abuse in the future. P: Home (friend's today) Transport arranged via Medicaid transport. AMERICO Tubbs Discharge Planning/Care Management CM Discharge Assessment Start: 03/06/20 13:45 Freq: Status: Discharge Protocol: Document 03/06/20 13:45 KJS (Rec: 03/06/20 13:50 KJS [id number]) Discharge Planning Assessment Assigned Guitar Technician AMERICO Tubbs Contact Information Messi Swenson (friend) [phone] Advance Directives? No Advance Directives on File No History Provided By Patient,Medical Record Has Patient been admitted in last 30 No days? Prior Living Arrangements Homeless Household Members none Type of transporation used prior to Medicaid Transport admit Independent with ADL's Yes Is patient alert and oriented? Yes Caregiver for Another No Barriers to Discharge No Discharge Plan Homeless Custodial Transportation Arrangement Medicaid transport. Referrals Initiated Other Additional Comment Provided patient [facility] brouchure however, reports that he does not need anything . Review Status In Process Next Review Type Continued Stay Review
[2020-03-09 14:08] LABS: Levetiracetam Keppra < 1.0 ug/mL (10.0-40.0)
== END 2020-03-06 12:10 | disposition home or self-care (01) ==
LOC: ED 21:10 → AC 21:19 → ICU 03-06 08:55 → AC 03-09 15:08 → ICU 03-09 15:08
PROVIDERS: Admitting Provider Nurse Practitioner Adult Health; Emergency Provider Nurse Practitioner; Referring Provider Emergency Medicine; Visit Provider Nurse Practitioner Adult Health
DX: G93.41 Metabolic encephalopathy (principal); I16.1 Hypertensive emergency; D64.9 Anemia, unspecified; G40.802 Other epilepsy, not intractable, without status epilepticus; I69.354 Hemiplegia and hemiparesis following cerebral infarction affecting left non-dominant side; I12.9 Hypertensive chronic kidney disease with stage 1 through stage 4 chronic kidney disease, or unspecified chronic kidney disease; N18.3 Chronic kidney disease, stage 3 (moderate); Z59.0 Homelessness; Z91.128 Patient's intentional underdosing of medication regimen for other reason; I69.398 Other sequelae of cerebral infarction; R26.89 Other abnormalities of gait and mobility; F17.210 Nicotine dependence, cigarettes, uncomplicated
CPT/HCPCS: 36415; 70450; 71045; 80048; 80053; 80177; 80305; 81003; 81015; 82550; 82962; 83735; 84146; 84484; 85025; 93005; 93010; 96365; 96366; 96375; 96376; 99284; G0378; C9113; J1644; J1953

== ENCOUNTER 2021-01-08 08:32 | Observation (INO) | payer OTHER, MEDICAID, SELFPAY ==
[2020-03-06 00:07] VITALS: BMI 23.4
[2021-01-08] VITALS (170 sets, daily range): BP systolic 139–268; BP diastolic 67–129; PULSE 74–110; RESP 0–33; TEMP 36.5–37; O2SAT 94–100; BMI 24.3
--- NOTE | 2021-01-08 08:34 | DI.CT.S_ITS ---
PROCEDURE: CT HEAD/BRAIN WO CON INDICATIONS: altered mental status TECHNIQUE: Noncontrast 4.5 mm thick angled axial sections acquired from the foramen magnum to the vertex, with coronal and sagittal reformats. For radiation dose reduction, the following was used: automated exposure control, adjustment of mA and/or kV according to patient size. COMPARISON: [facility], CT, CT HEAD/BRAIN WO CON, 12/31/2019, 13:34. [facility], CT, CT HEAD/BRAIN WO CON, 03/05/2020, 17:47. FINDINGS: Image quality: Excellent. CSF spaces: Basal cisterns are patent. No extra-axial fluid collections. The ventricles are symmetric in size and shape. Cavum septum pellucidum. Brain: No intracranial bleeds or masses. There is mild cerebral volume loss for age, with resultant ventricular and sulcal prominence. There are moderate periventricular and deep white matter chronic small vessel ischemic changes. Bilateral dystrophic basal ganglia calcifications. There is intracranial internal carotid artery atherosclerosis. Skull and face: Calvarium and visualized facial bones appear intact, without suspicious lesions. Sinuses: There is opacification of the right maxillary sinus. The mastoids are clear. IMPRESSION: 1. No acute intracranial abnormalities. 2. Cerebral volume loss and chronic microvascular ischemic changes are disproportionate to the patient's age. If clinical symptoms persist, MRI is suggested for further evaluation. 3. Right maxillary sinusitis. Dictated by: Alaina Smith M.D. on 01/08/2021 at 8:17 Approved by: Alaina Smith M.D. on 01/08/2021 at 8:27
--- NOTE | 2021-01-08 08:37 | ED_ITS ---
HPI - Altered Mental Status General Chief Complaint: Altered Mental Status Stated Complaint: Fall Time Seen by Provider: 01/08/21 08:34 Source: patient and EMS Mode of arrival: EMS History of Present Illness HPI narrative: Patient is a 55-year-old male with history of CVA and seizures presenting as a fall. Apparently and on look her saw him from their window and noticed he was walking funny in the street when he suddenly fell over. He was minimally responsive for EMS of glucose initially was in the 70s he was given 2 mg of Narcan at 8:15am and he has slowly started coming around. He also is noted to have bit his tongue. No sign of urinary incontinence. He is certainly becoming more awake now. He is unable to answer many questions and unsure where he is but he is able to follow commands and currently denies any pain. MD complaint: altered mental status and confusion Related Data Home Medications Medication Instructions Recorded Confirmed buprenorphine-naloxone [Suboxone] 1 film SUBLINGUAL TID 03/06/20 01/08/21 Previous Rx's Medication Instructions Recorded amlodipine [Norvasc] 5 mg PO BID #60 tab 03/06/20 aspirin 81 mg PO DAILY #30 tab 03/06/20 atorvastatin 40 mg PO DAILY #30 tab 03/06/20 lisinopril 20 mg PO BID #60 tab 03/06/20 Allergies Allergy/AdvReac Type Severity Reaction Status Date / Time No Known Drug Allergies Allergy Verified 12/31/19 13:35 Review of Systems Review of Systems ROS Unobtainable: Unobtainable due to medical condition and Unobtainable due to mental condition Patient History Medical History CVA (cerebral vascular accident) Hypertension Seizure disorder Surgical History History of right inguinal hernia repair Family History Mother CVA (cerebral vascular accident) Father No problems noted. Sister COPD (chronic obstructive pulmonary disease) Social History household members: none Smoking Status: Current every day smoker Smoking Status: Current every day smoker alcohol intake frequency: holidays/special occasions only Substance Use Type: marijuana and methamphetamine Exam Initial Vital Signs Initial Vital Signs: Vital Signs Temperature 98.6 F 01/08/21 08:42 Pulse Rate 96 H 01/08/21 08:42 Respiratory Rate 18 01/08/21 08:42 Blood Pressure 216/106 H 01/08/21 08:42 Pulse Oximetry 98 01/08/21 08:42 GENERAL: Alert male and in no acute distress. HEENT: Head atraumatic,EOMI, pupils reactive, face symmetric, he did bite his tongue he has blood on the right side of his mouth CARDIOVASCULAR: Regular rate and rhythm without murmurs, rubs or gallops. RESPIRATORY: Breath sounds equal bilaterally, no wheezes rales or rhonchi. ABDOMEN: Soft, nontender. Normoactive bowel sounds all 4 quadrants. No guarding or rebound. EXTREMITIES: Normal range of motion, no clubbing or edema. Neurovascularly intact NEUROLOGICAL: Alert and oriented x2.Normal gait and speech. 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 Course Orders Ordered: ED Orders 01/08/21 10:38 COVID19 -Nasal swab/Pre-Proc Stat Urinalysis and Microscopic Stat Urine Drug Screen, Rapid Stat 01/08/21 11:53 COVID19 - ADMIT ([employer] swab/PCR) Stat Acetaminophen (Acetaminophen 325 Mg Tablet) 650 mg PO Q6HR PRN PRN Reason: Fever Last Admin: 01/08/21 18:54 Dose: 650 mg Documented by: MSTTERI Amlodipine Besylate (Amlodipine 5 Mg Tablet) 10 mg PO DAILY [facility] Aspirin (Aspirin Ec 81 Mg Tablet) 81 mg PO DAILY [facility] Atorvastatin Calcium (Atorvastatin 20 Mg Tablet) 40 mg PO BEDTIME [facility] Bisacodyl (Bisacodyl 10 Mg Supp) 10 mg [place] DAILY PRN PRN Reason: Constipation Enoxaparin Sodium (Enoxaparin 40 Mg/0.4 Ml Syringe) 40 mg SUBCUT DAILY [facility] Lisinopril (Lisinopril 20 Mg Tablet) 40 mg PO DAILY [facility] Metoclopramide HCl (Metoclopramide 10 Mg/2 Ml Inj) 10 mg IV Q6HR PRN PRN Reason: Nausea And Vomiting Naloxone HCl (Naloxone 0.4 Mg/Ml Vial) 0.2 mg IV Q2MIN PRN PRN Reason: Opiate Reversal Naloxone HCl (Naloxone 0.4 Mg/Ml Vial) 0.2 mg IV Q2MIN PRN PRN Reason: Opiate Reversal Sennosides (Sennosides 8.6 Mg Tablet) 17.2 mg PO BEDTIME RAMIN Discontinued Medications Amlodipine Besylate (Amlodipine 5 Mg Tablet) 5 mg PO NOW ONE Stop: 01/08/21 09:59 Last Admin: 01/08/21 10:21 Dose: 5 mg Documented by: CALISTA Sodium Chloride (Normal Saline 0.9%) 1,000 mls @ 150 mls/hr IV CONT RAMIN Last Infusion: 01/08/21 14:55 Dose: 150 mls/hr Documented by: Infusion: 01/08/21 14:54 Dose: 0 mls/hr Documented by: Admin: 01/08/21 09:13 Dose: 150 mls/hr Documented by: ITALO Nicardipine HCl 25 mg/ Sodium (Chloride) 250 mls @ 50 mls/hr IV TITRATE RAMIN; Protocol Last Admin: 01/08/21 16:27 Dose: 75 mg/hr, 750 mls/hr Documented by: Titration: 01/08/21 14:54 Dose: 0 mg/hr, 0 mls/hr Documented by: Titration: 01/08/21 14:12 Dose: 6 mg/hr, 60 mls/hr Documented by: Titration: 01/08/21 13:39 Dose: 7 mg/hr, 70 mls/hr Documented by: Titration: 01/08/21 12:45 Dose: 7.5 mg/hr, 75 mls/hr Documented by: Titration: 01/08/21 12:20 Dose: 15 mg/hr, 150 mls/hr Documented by: Titration: 01/08/21 11:57 Dose: 10 mg/hr, 100 mls/hr Documented by: Admin: 01/08/21 11:32 Dose: 5 mg/hr, 50 mls/hr Documented by: CASEY Labetalol HCl (Labetalol 20 Mg/4 Ml Syringe) 20 mg IV NOW ONE Stop: 01/08/21 10:41 Last Admin: 01/08/21 10:48 Dose: 20 mg Documented by: CASEY Lisinopril (Lisinopril 20 Mg Tablet) 20 mg PO NOW ONE Stop: 01/08/21 09:59 Last Admin: 01/08/21 10:21 Dose: 20 mg Documented by: CALISTA Morphine Sulfate (Morphine 2 Mg/Ml Inj) 2 mg IV NOW ONE Stop: 01/08/21 15:09 Last Admin: 01/08/21 15:23 Dose: 2 mg Documented by: URIEL Vital Signs Vital signs: Vital Signs - 8 hr 01/08/21 11:00 01/08/21 11:01 01/08/21 11:05 Pulse Rate 77 76 76 Respiratory Rate 15 15 17 Blood Pressure 223/103 H Pulse Oximetry 96 97 96 01/08/21 11:06 01/08/21 11:10 01/08/21 11:12 Pulse Rate 78 77 77 Respiratory Rate 16 13 12 Blood Pressure 250/115 H 244/119 H Pulse Oximetry 97 97 97 01/08/21 11:13 01/08/21 11:14 01/08/21 11:15 Pulse Rate 76 76 75 Respiratory Rate 0 L 0 L 0 L Blood Pressure 247/119 H 230/109 H 231/112 H Pulse Oximetry 96 96 97 01/08/21 11:16 01/08/21 11:20 01/08/21 11:25 Pulse Rate 77 77 78 Respiratory Rate 8 L 16 19 Blood Pressure 240/117 H 241/122 H Pulse Oximetry 96 98 96 01/08/21 11:26 01/08/21 11:30 01/08/21 11:35 Pulse Rate 78 79 78 Respiratory Rate 16 11 L 16 Blood Pressure 230/108 H 237/114 H 247/114 H Pulse Oximetry 96 96 95 01/08/21 11:40 01/08/21 11:45 01/08/21 11:50 Pulse Rate 79 78 85 Respiratory Rate 16 19 23 Blood Pressure 235/111 H 232/111 H 230/112 H Pulse Oximetry 95 95 98 01/08/21 11:55 01/08/21 12:00 01/08/21 12:01 Pulse Rate 84 83 84 Respiratory Rate 23 17 21 Blood Pressure 236/123 H 225/118 H Pulse Oximetry 98 99 99 01/08/21 12:05 01/08/21 12:10 01/08/21 12:15 Pulse Rate 74 78 77 Respiratory Rate 15 22 21 Blood Pressure 229/104 H 230/109 H 220/105 H Pulse Oximetry 97 97 96 01/08/21 12:20 01/08/21 12:25 01/08/21 12:30 Pulse Rate 77 78 78 Respiratory Rate 22 21 21 Blood Pressure 225/109 H 220/106 H 220/107 H Pulse Oximetry 96 95 96 01/08/21 12:35 01/08/21 12:40 01/08/21 12:45 Pulse Rate 79 80 80 Respiratory Rate 22 20 21 Blood Pressure 217/99 H 220/105 H 217/105 H Pulse Oximetry 95 95 96 01/08/21 12:50 01/08/21 12:55 01/08/21 13:00 Pulse Rate 82 85 85 Respiratory Rate 19 22 22 Blood Pressure 199/89 H 198/91 H 189/88 H Pulse Oximetry 95 95 94 01/08/21 13:05 01/08/21 13:10 Pulse Rate 86 85 Respiratory Rate 20 21 Blood Pressure 187/86 H 191/91 H Pulse Oximetry 94 95 MDM - Altered Mental Status Lab Data Attestation: I reviewed the patient's lab results. Result diagrams: 01/08/21 09:50 01/08/21 09:50 Labs: Lab Results 01/08/21 01/08/21 01/08/21 Range/Units 09:50 09:50 09:50 WBC 8.6 (4.5-11.0) X10^3/uL RBC 3.77 L (4.5-5.9) X10^6/uL Hgb 10.6 L (13.5-17.5) g/dL Hct 31.8 L (41-53) % MCV 84.2 (80-100) fL MCH 28.1 (26-34) PG MCHC 33.3 (30-36) % RDW 15.8 H (11.6-14.8) % Plt Count 170 (150-400) X10^3/uL Neut % (Auto) 71.7 (50-75) % Lymph % (Auto) 21.2 L (25-40) % [place] % (Auto) 5.3 (3-14) % Eos % (Auto) 1.1 L (2-4) % Baso % (Auto) 0.7 (0-2) % Neut # (Auto) 6200 (0791-0575) /uL Lymph # (Auto) 1800 (9408-0161) /uL [place] # (Auto) 500 (0-900) /uL Eos # (Auto) 100 (0-450) /uL Baso # (Auto) 100 (0-100) /uL PT 12.9 H (10.1-12.7) SECONDS INR 1.1 (0.9-1.3) APTT 33 (26.4-36.2) SECONDS Sodium 140 (137-145) mmol/L Potassium 4.0 (3.4-5.1) mmol/L Chloride 108 H (98-107) mmol/L Carbon Dioxide 25 (22-32) mmol/L BUN 35 H (9-20) mg/dL Creatinine 1.52 H (0.66-1.25) mg/dL Estimated GFR 47.5 L (>60) mL/min BUN/Creatinine Ratio 23.0 H (6-22) Glucose 80 (70-100) mg/dL Lactate (0.7-2.1) mmol/L Calcium 9.0 (8.4-10.2) mg/dL Total Bilirubin 0.3 (0.2-1.3) mg/dL AST 48 (17-59) IU/L ALT 44 (<50) IU/L Alkaline Phosphatase 115 (38-126) U/L Total Creatine Kinase 205 H (55-170) U/L CK-MB (CK-2) 5.56 H (<2.37) ng/mL CK-MB (CK-2) Rel Index 2.7 (1.5-5.0) % Troponin I 0.020 (0.01-0.034) ng/mL Total Protein 8.0 (6.3-8.2) g/dL Albumin 4.1 (3.5-5.0) g/dL Globulin 3.9 (1.7-4.1) g/dL Albumin/Globulin Ratio 1.1 (1.0-2.8) Prolactin 13.7 (3.7-17.9) ng/mL Urine Color Urine Appearance Urine pH (4.5-8.0) Ur Specific [place] (1.000-1.035) Urine Protein (Negative) Urine Glucose (UA) (Negative) g/dL Urine Ketones (NEGATIVE) Urine Occult Blood (Negative) Urine Nitrate (Negative) Urine Bilirubin (NEGATIVE) Urine Urobilinogen (0.2) E.U./dL Ur Leukocyte Esterase (NEGATIVE) Urine RBC (0-5/HPF) Urine WBC (0-5/HPF) Urine Bacteria (None) Hyaline Casts (None) Urine Sperm Ur Culture Indicated? Salicylates < 1.0 (<20) mg/dL U Opiates 300ng/mL cut (Negative) Ur Oxycodone Screen (Negative) Urine Methadone Screen (Negative) Acetaminophen < 10 L (10-30) ug/mL Ur Barbiturates Screen (Negative) U Tricyclic Antidepress (Negative) Ur Phencyclidine Scrn (Negative) Ur Amphetamines Screen (Negative) U Methamphetamines Scrn (Negative) Ur MDMA Scrn (Ecstasy) (Negative) U Benzodiazepines Scrn (Negative) Urine Cocaine Screen (Negative) U Marijuana (THC) Screen (Negative) Ethyl Alcohol < 10 ( - 10) mg/dL SARS-CoV-2 (PCR) (Negative) 01/08/21 01/08/21 01/08/21 Range/Units 09:50 10:38 10:38 WBC (4.5-11.0) X10^3/uL RBC (4.5-5.9) X10^6/uL Hgb (13.5-17.5) g/dL Hct (41-53) % MCV (80-100) fL MCH (26-34) PG MCHC (30-36) % RDW (11.6-14.8) % Plt Count (150-400) X10^3/uL Neut % (Auto) (50-75) % Lymph % (Auto) (25-40) % [place] % (Auto) (3-14) % Eos % (Auto) (2-4) % Baso % (Auto) (0-2) % Neut # (Auto) (2866-9957) /uL Lymph # (Auto) (1851-9973) /uL [place] # (Auto) (0-900) /uL Eos # (Auto) (0-450) /uL Baso # (Auto) (0-100) /uL PT (10.1-12.7) SECONDS INR (0.9-1.3) APTT (26.4-36.2) SECONDS Sodium (137-145) mmol/L Potassium (3.4-5.1) mmol/L Chloride (98-107) mmol/L Carbon Dioxide (22-32) mmol/L BUN (9-20) mg/dL Creatinine (0.66-1.25) mg/dL Estimated GFR (>60) mL/min BUN/Creatinine Ratio (6-22) Glucose (70-100) mg/dL Lactate 1.6 (0.7-2.1) mmol/L Calcium (8.4-10.2) mg/dL Total Bilirubin (0.2-1.3) mg/dL AST (17-59) IU/L ALT (<50) IU/L Alkaline Phosphatase (38-126) U/L Total Creatine Kinase (55-170) U/L CK-MB (CK-2) (<2.37) ng/mL CK-MB (CK-2) Rel Index (1.5-5.0) % Troponin I (0.01-0.034) ng/mL Total Protein (6.3-8.2) g/dL Albumin (3.5-5.0) g/dL Globulin (1.7-4.1) g/dL Albumin/Globulin Ratio (1.0-2.8) Prolactin (3.7-17.9) ng/mL Urine Color Yellow Urine Appearance Clear Urine pH 6.5 (4.5-8.0) Ur Specific [place] 1.020 (1.000-1.035) Urine Protein 1+ H (Negative) Urine Glucose (UA) Negative (Negative) g/dL Urine Ketones Negative (NEGATIVE) Urine Occult Blood 2+ H (Negative) Urine Nitrate Negative (Negative) Urine Bilirubin Negative (NEGATIVE) Urine Urobilinogen 0.2 (0.2) E.U./dL Ur Leukocyte Esterase Negative (NEGATIVE) Urine RBC 1-5/hpf (0-5/HPF) Urine WBC None seen (0-5/HPF) Urine Bacteria Few (2-10) H (None) Hyaline Casts 0-1/lpf (None) Urine Sperm Ur Culture Indicated? Cult not indicated Salicylates (<20) mg/dL U Opiates 300ng/mL cut Positive H (Negative) Ur Oxycodone Screen Negative (Negative) Urine Methadone Screen Negative (Negative) Acetaminophen (10-30) ug/mL Ur Barbiturates Screen Negative (Negative) U Tricyclic Antidepress Negative (Negative) Ur Phencyclidine Scrn Negative (Negative) Ur Amphetamines Screen Negative (Negative) U Methamphetamines Scrn Positive H (Negative) Ur MDMA Scrn (Ecstasy) Negative (Negative) U Benzodiazepines Scrn Negative (Negative) Urine Cocaine Screen Negative (Negative) U Marijuana (THC) Screen Positive H (Negative) Ethyl Alcohol ( - 10) mg/dL SARS-CoV-2 (PCR) (Negative) 01/08/21 01/08/21 Range/Units 10:38 11:53 WBC (4.5-11.0) X10^3/uL RBC (4.5-5.9) X10^6/uL Hgb (13.5-17.5) g/dL Hct (41-53) % MCV (80-100) fL MCH (26-34) PG MCHC (30-36) % RDW (11.6-14.8) % Plt Count (150-400) X10^3/uL Neut % (Auto) (50-75) % Lymph % (Auto) (25-40) % [place] % (Auto) (3-14) % Eos % (Auto) (2-4) % Baso % (Auto) (0-2) % Neut # (Auto) (1059-0124) /uL Lymph # (Auto) (7708-6713) /uL [place] # (Auto) (0-900) /uL Eos # (Auto) (0-450) /uL Baso # (Auto) (0-100) /uL PT (10.1-12.7) SECONDS INR (0.9-1.3) APTT (26.4-36.2) SECONDS Sodium (137-145) mmol/L Potassium (3.4-5.1) mmol/L Chloride (98-107) mmol/L Carbon Dioxide (22-32) mmol/L BUN (9-20) mg/dL Creatinine (0.66-1.25) mg/dL Estimated GFR (>60) mL/min BUN/Creatinine Ratio (6-22) Glucose (70-100) mg/dL Lactate (0.7-2.1) mmol/L Calcium (8.4-10.2) mg/dL Total Bilirubin (0.2-1.3) mg/dL AST (17-59) IU/L ALT (<50) IU/L Alkaline Phosphatase (38-126) U/L Total Creatine Kinase (55-170) U/L CK-MB (CK-2) (<2.37) ng/mL CK-MB (CK-2) Rel Index (1.5-5.0) % Troponin I (0.01-0.034) ng/mL Total Protein (6.3-8.2) g/dL Albumin (3.5-5.0) g/dL Globulin (1.7-4.1) g/dL Albumin/Globulin Ratio (1.0-2.8) Prolactin (3.7-17.9) ng/mL Urine Color Urine Appearance Urine pH (4.5-8.0) Ur Specific [place] (1.000-1.035) Urine Protein (Negative) Urine Glucose (UA) (Negative) g/dL Urine Ketones (NEGATIVE) Urine Occult Blood (Negative) Urine Nitrate (Negative) Urine Bilirubin (NEGATIVE) Urine Urobilinogen (0.2) E.U./dL Ur Leukocyte Esterase (NEGATIVE) Urine RBC (0-5/HPF) Urine WBC (0-5/HPF) Urine Bacteria (None) Hyaline Casts (None) Urine Sperm Ur Culture Indicated? Salicylates (<20) mg/dL U Opiates 300ng/mL cut (Negative) Ur Oxycodone Screen (Negative) Urine Methadone Screen (Negative) Acetaminophen (10-30) ug/mL Ur Barbiturates Screen (Negative) U Tricyclic Antidepress (Negative) Ur Phencyclidine Scrn (Negative) Ur Amphetamines Screen (Negative) U Methamphetamines Scrn (Negative) Ur MDMA Scrn (Ecstasy) (Negative) U Benzodiazepines Scrn (Negative) Urine Cocaine Screen (Negative) U Marijuana (THC) Screen (Negative) Ethyl Alcohol ( - 10) mg/dL SARS-CoV-2 (PCR) Negative Negative (Negative) Imaging Data CT scan - head: Radiologist's Impression: PROCEDURE: CT HEAD/BRAIN WO CON INDICATIONS: altered mental status TECHNIQUE: Noncontrast 4.5 mm thick angled axial sections acquired from the foramen magnum to the vertex, with coronal and sagittal reformats. For radiation dose reduction, the following was used: automated exposure control, adjustment of mA and/or kV according to patient size. COMPARISON: [facility], CT, CT HEAD/BRAIN WO CON, 12/31/2019, 13:34. [facility], CT, CT HEAD/BRAIN WO CON, 03/05/2020, 17:47. FINDINGS: Image quality: Excellent. CSF spaces: Basal cisterns are patent. No extra-axial fluid collections. The ventricles are symmetric in size and shape. Cavum septum pellucidum. Brain: No intracranial bleeds or masses. There is mild cerebral volume loss for age, with resultant ventricular and sulcal prominence. There are moderate periventricular and deep white matter chronic small vessel ischemic changes. Bilateral dystrophic basal ganglia calcifications. There is intracranial internal carotid artery atherosclerosis. Skull and face: Calvarium and visualized facial bones appear intact, without suspicious lesions. Sinuses: There is opacification of the right maxillary sinus. The mastoids are clear. IMPRESSION: 1. No acute intracranial abnormalities. 2. Cerebral volume loss and chronic microvascular ischemic changes are disproportionate to the patient's age. If clinical symptoms persist, MRI is suggested for further evaluation. 3. Right maxillary sinusitis. Dictated by: Alaina Smith M.D. on 01/08/2021 at 8:17 CT - cervical spine: Radiologist's Impression: PROCEDURE: CT CERVICAL SPINE WO CON INDICATIONS: fall altered mental status TECHNIQUE: Noncontrast 3 mm thick sections acquired from the skull base to the T4 level. Sagittal and coronal reformats were then constructed. For radiation dose reduction, the following was used: automated exposure control, adjustment of mA and/or kV according to patient size. COMPARISON: None. FINDINGS: Image quality: Excellent. Bones: No fractures or dislocations. There is degenerative disc disease, moderate at C5-C6 and C6-C7, mild at C4-C5. Mild facet arthropathy bilaterally at multiple levels. Visualized superior ribs are intact. Soft tissues: Prevertebral soft tissues are normal in thickness. No paravertebral hematomas. No apical pneumothoraces. Bilateral airspace infiltrates in visualized upper lobes consistent with pneumonia. Moderate bilateral carotid artery calcifications. IMPRESSION: 1. No cervical spine fracture. 2. Degenerative disc and facet disease in cervical spine. 3. Bilateral pneumonia. Dictated by: Alaina Smith M.D. on 01/08/2021 at 8:13 Chest x-ray: Radiologist's Impression: PROCEDURE: XR CHEST 1V INDICATIONS: fall TECHNIQUE: One view of the chest was acquired. COMPARISON: [facility], CR, XR CHEST 1V, 03/05/2020, 17:52. FINDINGS: Surgical changes and devices: None. Lungs and pleura: Right upper lobe and, to a lesser degree, left upper lobe infiltrates, consistent with pneumonia. No pleural effusions or pneumothorax. Mediastinum: Mediastinal contours appear normal. Heart size is normal. Bones and chest wall: No suspicious bony lesions. Mild diastasis of the right AC joint is unchanged. Overlying soft tissues appear unremarkable. IMPRESSION: Bilateral pneumonia. Dictated by: Alaina Smith M.D. on 01/08/2021 at 8:09 ECG Data Attestation: I personally reviewed and interpreted this ECG as follows: Prior ECG tracings: available for review Interpretation: EKG 1. Sinus rhythm rate 87 p.r. [address] changes tall peaked T-waves in V3. Similar to previous EKG MDM Narrative Medical decision making narrative: Patient states that he ran out of his blood pressure medication approximately 1 week ago. He is still unsure exactly what happened morning. He has no focal deficits prolactin actually is not elevated although I do suspect possible seizure seemed as though he was postictal although he did receive Narcan. He has previously been admitted for hypertensive crisis on nicardipine drips. His blood pressure remains quite elevated with systolic 240/100's, he had minimal responsiveness to labetalol. He is placed on a nicardipine drip again. Dr. guzman day a on patient's numbness test results and accepts patient. Discharge Plan Departure Patient Disposition: Admitted As Inpatient Clinical Impression: Encephalopathy, hypertensive, Polysubstance abuse Admit Date/Time: 01/08/21 13:12 Admit Provider: Corinne Guzman
--- NOTE | 2021-01-08 08:55 | DI.CT.S_ITS ---
PROCEDURE: CT CERVICAL SPINE WO CON INDICATIONS: fall altered mental status TECHNIQUE: Noncontrast 3 mm thick sections acquired from the skull base to the T4 level. Sagittal and coronal reformats were then constructed. For radiation dose reduction, the following was used: automated exposure control, adjustment of mA and/or kV according to patient size. COMPARISON: None. FINDINGS: Image quality: Excellent. Bones: No fractures or dislocations. There is degenerative disc disease, moderate at C5-C6 and C6-C7, mild at C4-C5. Mild facet arthropathy bilaterally at multiple levels. Visualized superior ribs are intact. Soft tissues: Prevertebral soft tissues are normal in thickness. No paravertebral hematomas. No apical pneumothoraces. Bilateral airspace infiltrates in visualized upper lobes consistent with pneumonia. Moderate bilateral carotid artery calcifications. IMPRESSION: 1. No cervical spine fracture. 2. Degenerative disc and facet disease in cervical spine. 3. Bilateral pneumonia. Dictated by: Alaina Smith M.D. on 01/08/2021 at 8:13 Approved by: Alaina Smith M.D. on 01/08/2021 at 8:17
[2021-01-08] MEDS: SODIUM CHLORIDE 0.9% 1,000 ML 150 ML IV (09:13)
[2021-01-08 10:05] LABS: Add Manual Diff / Slide Review NO; Basophils Absolute Auto 100 /uL (0-100); Basophils Percent Auto 0.7 % (0-2); Eosinophils Absolute Auto 100 /uL (0-450); Eosinophils Percent Auto 1.1 % (2-4); Hematocrit 31.8 % (41-53); Hemoglobin 10.6 g/dL (13.5-17.5); Lymphocytes Absolute Auto 1800 /uL (1100-4500); Lymphocytes Percent Auto 21.2 % (25-40); Mean Corpuscular HGB Conc 33.3 % (30-36); Mean Corpuscular Hemoglobin 28.1 PG (26-34); Mean Corpuscular Volume 84.2 fL (80-100); Monocytes Absolute Auto 500 /uL (0-900); Monocytes Percent Auto 5.3 % (3-14); Neutrophils Absolute Auto 6200 /uL (1500-7000); Neutrophils Percent Auto 71.7 % (50-75); Platelet Count 170 X10^3/uL (150-400); Red Blood Cell Count 3.77 X10^6/uL (4.5-5.9); Red Cell Distribution Width 15.8 % (11.6-14.8); White Blood Cell Count 8.6 X10^3/uL (4.5-11.0)
[2021-01-08 10:12] LABS: INR 1.1 (0.9-1.3); Prothrombin Time 12.9 SECONDS (10.1-12.7)
[2021-01-08 10:14] LABS: PTT Partial Thromboplastin Tim 33 SECONDS (26.4-36.2)
[2021-01-08] MEDS: lisinopriL 20 MG TABLET PO (10:21)
[2021-01-08] MEDS: AMLODIPINE 5 MG TABLET PO (10:21)
[2021-01-08 10:23] LABS: Acetaminophen < 10 ug/mL (10-30); Alanine Aminotransferase 44 IU/L (<50); Albumin 4.1 g/dL (3.5-5.0); Albumin Globulin Ratio 1.1 (1.0-2.8); Alkaline Phosphatase 115 U/L (38-126); Aspartate Aminotransferase 48 IU/L (17-59); Bilirubin Total 0.3 mg/dL (0.2-1.3); Blood Urea Nitrogen 35 mg/dL (9-20); Carbon Dioxide 25 mmol/L (22-32); Chloride 108 mmol/L (98-107); Creatine Kinase 205 U/L (55-170); Estimated Glomerular Filt Rate 47.5 mL/min (>60); Ethanol (ETOH) < 10 mg/dL; Globulin 3.9 g/dL (1.7-4.1); Glucose 80 mg/dL (70-100); HEMOLYSIS < 15 (0-50); Lactate (Lactic Acid) 1.6 mmol/L (0.7-2.1); Salicylate < 1.0 mg/dL (<20); Sodium 140 mmol/L (137-145)
[2021-01-08 10:33] LABS: Prolactin 13.7 ng/mL (3.7-17.9)
[2021-01-08 10:38] LABS: CKMB % Relative Index 2.7 % (1.5-5.0); Creatine Kinase MB 5.56 ng/mL (<2.37)
[2021-01-08 10:40] LABS: WBC Urine None Seen (0-5/HPF)
[2021-01-08 10:43] LABS: Appearance Urine UA CLEAR; Bilirubin Urine UA NEGATIVE (NEGATIVE); Color Urine UA YELLOW; Glucose Urine UA NEGATIVE (Negative); Ketones Urine UA NEGATIVE (NEGATIVE); Leukocyte Esterase Urine UA NEGATIVE (NEGATIVE); Nitrite Urine UA NEGATIVE (Negative); Occult Blood Urine UA 2+ (Negative); Protein Urine UA 1+ (Negative); Urobilinogen Urine UA 0.2 E.U./dL (0.2); pH Urine UA 6.5 (4.5-8.0)
--- NOTE | 2021-01-08 10:46 | PC.NURSE ---
patient upright in bed taking po food and fluids. calm and appropriate with staff
[2021-01-08] MEDS: LABETALOL 20 MG/4 ML SYRINGE IV (10:48)
[2021-01-08 10:53] LABS: UR Morphine/Opiate cutoff 300 Positive (Negative); Ur Creatinine Normal (Normal); Ur Specific Gravity Normal (Normal); Urine Amphetamines Negative (Negative); Urine Barbiturates Negative (Negative); Urine Benzodiazepines Negative (Negative); Urine Cocaine Negative (Negative); Urine MDMA Negative (Negative); Urine Methadone Negative (Negative); Urine Methamphetamines Positive (Negative); Urine Oxycodone Negative (Negative); Urine Phencyclidine Negative (Negative); Urine Tetrahydrocannabinol Positive (Negative); Urine Tricyclic Antidepressant Negative (Negative); Urine pH Normal (Normal)
[2021-01-08 11:01] LABS: COVID19 -Nasal RAPID Negative (Negative)
[2021-01-08 11:12] LABS: Bacteria Urine Few (2-10); Hyaline Casts Urine 0-1/LPF; RBC Urine 1-5/HPF (0-5/HPF)
[2021-01-08 11:13] LABS: Culture Indicated Urine Cult Not Indicated
[2021-01-08] MEDS: NICARDIPINE 25 MG in SODIUM CHLORIDE 0.9% 240 ML 50 ML IV (11:32)
--- NOTE | 2021-01-08 12:46 | PC.NURSE ---
Dose titration in MAR incorrect. Started at 5ml/hr, titrated to 10ml/hr, titrated to 15ml/hr. Currently at 75mls/hr
[2021-01-08 13:54] LABS: COVID19 - ADMIT (NP swab/PCR) Negative (Negative)
[2021-01-08] MEDS: MORPHINE 2 MG/ML INJ IV (15:23)
[2021-01-08] MEDS: NICARDIPINE 25 MG in SODIUM CHLORIDE 0.9% 240 ML 750 ML IV (16:27)
--- NOTE | 2021-01-08 16:41 | PC.ADMIT ---
Addendum entered by Opal Pierce R.N. 01/08/21 19:13: New orders to titrate Nicardipine gtt off and transition pt to his regular PO cardiac medications. Have begun titrating gtt, documented in emar. Bed low and locked, alarm on, seizure pads in place, will continue to monitor Original Note: 1010 Admission Note: Pt arrived via gurney, A/O x4, but unsure as to what happened and how he got here. Able to ambulate to be with assistance, connected to monitoring equipment, Nicardipine gtt and NS infusing as noted in emar. Oriented to room and call light system, assessment completed, pt belongings placed in closet. Pt c/o [place] 07/21, provider notified, verbal orders given for morphine and general diet, provider to evaluated and place new orders at admission assessment. Bed low and locked, alarm set, seizure pads in place, call light within reach, will continue to monitor. The patient,Guicho Aguilera,55 y/o, was given written information regarding hospital policies, unit procedures and contact persons. Patient's smoking status: Current every day smoker. Vital Signs - 8 hr 01/08/21 08:42 01/08/21 09:00 01/08/21 09:30 Temperature 98.6 F Pulse Rate 96 H 93 H 97 H Respiratory Rate 18 19 16 Blood Pressure 216/106 H 216/107 H 251/124 H Pulse Oximetry 98 95 95 01/08/21 09:59 01/08/21 10:00 01/08/21 10:15 Temperature Pulse Rate 91 H 91 H 95 H Respiratory Rate 22 13 21 Blood Pressure Pulse Oximetry 97 97 100 01/08/21 10:18 01/08/21 10:21 01/08/21 10:30 Temperature Pulse Rate 100 H 110 H 91 H Respiratory Rate 22 9 L Blood Pressure 227/120 H 227/120 H Pulse Oximetry 99 99 01/08/21 10:31 01/08/21 10:35 01/08/21 10:40 Temperature Pulse Rate 92 H 94 H 97 H Respiratory Rate 11 L 0 L 25 H Blood Pressure 268/129 H Pulse Oximetry 100 100 97 01/08/21 10:45 01/08/21 10:48 01/08/21 10:50 Temperature Pulse Rate 91 H 87 81 Respiratory Rate 6 L 20 Blood Pressure 268/129 H 244/122 H Pulse Oximetry 99 98 01/08/21 10:55 01/08/21 11:00 01/08/21 11:01 Temperature Pulse Rate 90 77 76 Respiratory Rate 21 15 15 Blood Pressure 260/126 H 223/103 H Pulse Oximetry 98 96 97 01/08/21 11:05 01/08/21 11:06 01/08/21 11:10 Temperature Pulse Rate 76 78 77 Respiratory Rate 17 16 13 Blood Pressure 250/115 H Pulse Oximetry 96 97 97 01/08/21 11:12 01/08/21 11:13 01/08/21 11:14 Temperature Pulse Rate 77 76 76 Respiratory Rate 12 0 L 0 L Blood Pressure 244/119 H 247/119 H 230/109 H Pulse Oximetry 97 96 96 01/08/21 11:15 01/08/21 11:16 01/08/21 11:20 Temperature Pulse Rate 75 77 77 Respiratory Rate 0 L 8 L 16 Blood Pressure 231/112 H 240/117 H 241/122 H Pulse Oximetry 97 96 98 01/08/21 11:25 01/08/21 11:26 01/08/21 11:30 Temperature Pulse Rate 78 78 79 Respiratory Rate 19 16 11 L Blood Pressure 230/108 H 237/114 H Pulse Oximetry 96 96 96 01/08/21 11:35 01/08/21 11:40 01/08/21 11:45 Temperature Pulse Rate 78 79 78 Respiratory Rate 16 16 19 Blood Pressure 247/114 H 235/111 H 232/111 H Pulse Oximetry 95 95 95 01/08/21 11:50 01/08/21 11:55 01/08/21 12:00 Temperature Pulse Rate 85 84 83 Respiratory Rate 23 23 17 Blood Pressure 230/112 H 236/123 H Pulse Oximetry 98 98 99 01/08/21 12:01 01/08/21 12:05 01/08/21 12:10 Temperature Pulse Rate 84 74 78 Respiratory Rate 21 15 22 Blood Pressure 225/118 H 229/104 H 230/109 H Pulse Oximetry 99 97 97 01/08/21 12:15 01/08/21 12:20 01/08/21 12:25 Temperature Pulse Rate 77 77 78 Respiratory Rate 21 22 21 Blood Pressure 220/105 H 225/109 H 220/106 H Pulse Oximetry 96 96 95 01/08/21 12:30 01/08/21 12:35 01/08/21 12:40 Temperature Pulse Rate 78 79 80 Respiratory Rate 21 22 20 Blood Pressure 220/107 H 217/99 H 220/105 H Pulse Oximetry 96 95 95 01/08/21 12:45 01/08/21 12:50 01/08/21 12:55 Temperature Pulse Rate 80 82 85 Respiratory Rate 21 19 22 Blood Pressure 217/105 H 199/89 H 198/91 H Pulse Oximetry 96 95 95 01/08/21 13:00 01/08/21 13:05 01/08/21 13:10 Temperature Pulse Rate 85 86 85 Respiratory Rate 22 20 21 Blood Pressure 189/88 H 187/86 H 191/91 H Pulse Oximetry 94 94 95 01/08/21 13:14 01/08/21 13:15 01/08/21 13:20 Temperature Pulse Rate 85 85 86 Respiratory Rate 21 20 20 Blood Pressure 182/87 H 183/86 H Pulse Oximetry 95 95 94 01/08/21 13:25 01/08/21 13:30 01/08/21 13:35 Temperature Pulse Rate 86 87 87 Respiratory Rate 20 20 21 Blood Pressure 174/78 H 176/83 H 172/78 H Pulse Oximetry 94 95 95 01/08/21 13:40 01/08/21 13:45 01/08/21 13:50 Temperature Pulse Rate 87 87 86 Respiratory Rate 20 20 20 Blood Pressure 174/81 H 173/79 H 171/79 H Pulse Oximetry 95 95 95 01/08/21 13:55 01/08/21 14:00 01/08/21 14:05 Temperature Pulse Rate 86 91 H 83 Respiratory Rate 20 23 17 Blood Pressure 166/78 H 170/87 H 166/78 H Pulse Oximetry 95 96 95 01/08/21 14:10 01/08/21 14:15 01/08/21 14:20 Temperature Pulse Rate 84 83 86 Respiratory Rate 18 17 15 Blood Pressure 163/74 H 161/73 H 167/72 H Pulse Oximetry 95 95 98 01/08/21 14:25 01/08/21 14:30 01/08/21 14:57 Temperature 97.7 F Pulse Rate 85 87 83 Respiratory Rate 18 20 16 Blood Pressure 140/67 Pulse Oximetry 96 99 98 01/08/21 15:00 01/08/21 15:05 01/08/21 15:10 Temperature Pulse Rate 83 85 83 Respiratory Rate 17 16 16 Blood Pressure 151/80 H Pulse Oximetry 98 97 97 01/08/21 15:15 01/08/21 15:20 01/08/21 15:25 Temperature Pulse Rate 83 82 81 Respiratory Rate 15 16 16 Blood Pressure Pulse Oximetry 97 97 97 01/08/21 15:30 01/08/21 15:35 01/08/21 15:40 Temperature Pulse Rate 87 89 84 Respiratory Rate 14 18 14 Blood Pressure Pulse Oximetry 99 99 99 01/08/21 15:45 01/08/21 15:50 01/08/21 15:55 Temperature Pulse Rate 82 89 83 Respiratory Rate 17 18 18 Blood Pressure Pulse Oximetry 99 100 99 01/08/21 16:00 Temperature Pulse Rate 81 Respiratory Rate 15 Blood Pressure 157/81 H Pulse Oximetry 99
--- NOTE | 2021-01-08 18:26 | PM.HP.1 ---
History of Present Illness History of Present Illness Date Patient Seen: 01/08/21 Chief complaint: Fall Narrative: The patient is a 55-year-old male with a history of hypertension, hyperlipidemia, history of substance abuse including methamphetamines and opiates, history of CVA, history of seizure who ran out of his medications this week. The patient was markedly hypertensive. He was found stumbling and confused. The patient was unable to provide any further history other than he does not recall what happened. He was observed to be acting unusual. He was brought into the emergency room. In the emergency room the patient was confused and cannot provide history. He was found to have a laceration on his left lower lip and tongue. Patient does not recall having a seizure recently and feels that he may have lacerated his lip and tongue when falling. In the emergency room he was markedly hypertensive with systolic blood pressures of over 200 diastolic blood pressures over 100. He was started on narcotic pain drip and admitted to the hospital for further evaluation. Patient underwent a head CT in the emergency room which revealed right maxillary sinusitis but no acute intracranial abnormalities. He underwent a cervical spine series which showed no acute fracture. Chest x-ray showed bilateral pneumonia. However the patient denies any fever chills or cough. He has no shortness of breath. White count is normal. Patient is admitted to the hospital for management of his hypertensive urgency. Patient History Medical History CVA (cerebral vascular accident) Hypertension Seizure disorder Surgical History History of right inguinal hernia repair Family & Social History Family History Mother CVA (cerebral vascular accident) Father No problems noted. Sister COPD (chronic obstructive pulmonary disease) Social History: household members none Prior Living Arrangements House Safety & Behavioral: Feels Safe in Current No Environment Been Physically Hurt or No Threatened By a Person Suicidal Ideation Description None Suicide Plan Description No Plan Tobacco & Substance use: Smoking Status Current every day smoker alcohol intake frequency holiday/special occasion Substance Use Type marijuana,opiates,methamphetamine Meds Home Medications and Allergies Home Medications Medication Instructions Recorded Confirmed Type amlodipine [Norvasc] 5 mg PO BID #60 tab 03/06/20 01/08/21 Rx aspirin 81 mg PO DAILY #30 tab 03/06/20 01/08/21 Rx atorvastatin 40 mg PO DAILY #30 tab 03/06/20 01/08/21 Rx buprenorphine-naloxone [Suboxone] 1 film SUBLINGUAL TID 03/06/20 01/08/21 History lisinopril 20 mg PO BID #60 tab 03/06/20 01/08/21 Rx Allergies Allergy/AdvReac Type Severity Reaction Status Date / Time No Known Drug Allergies Allergy Verified 12/31/19 13:35 Review of Systems Review of Systems ROS: Yes All systems reviewed with the patient and are negative except as otherwise documented Exam Vital Signs (past 8 hours): - 01/08/21 10:30 01/08/21 10:31 01/08/21 10:35 Temperature Pulse Rate 91 H 92 H 94 H Respiratory Rate 9 L 11 L 0 L Blood Pressure 268/129 H Pulse Oximetry 99 100 100 01/08/21 10:40 01/08/21 10:45 01/08/21 10:48 Temperature Pulse Rate 97 H 91 H 87 Respiratory Rate 25 H 6 L Blood Pressure 268/129 H Pulse Oximetry 97 99 01/08/21 10:50 01/08/21 10:55 01/08/21 11:00 Temperature Pulse Rate 81 90 77 Respiratory Rate 20 21 15 Blood Pressure 244/122 H 260/126 H Pulse Oximetry 98 98 96 01/08/21 11:01 01/08/21 11:05 01/08/21 11:06 Temperature Pulse Rate 76 76 78 Respiratory Rate 15 17 16 Blood Pressure 223/103 H 250/115 H Pulse Oximetry 97 96 97 01/08/21 11:10 01/08/21 11:12 01/08/21 11:13 Temperature Pulse Rate 77 77 76 Respiratory Rate 13 12 0 L Blood Pressure 244/119 H 247/119 H Pulse Oximetry 97 97 96 01/08/21 11:14 01/08/21 11:15 01/08/21 11:16 Temperature Pulse Rate 76 75 77 Respiratory Rate 0 L 0 L 8 L Blood Pressure 230/109 H 231/112 H 240/117 H Pulse Oximetry 96 97 96 01/08/21 11:20 01/08/21 11:25 01/08/21 11:26 Temperature Pulse Rate 77 78 78 Respiratory Rate 16 19 16 Blood Pressure 241/122 H 230/108 H Pulse Oximetry 98 96 96 01/08/21 11:30 01/08/21 11:35 01/08/21 11:40 Temperature Pulse Rate 79 78 79 Respiratory Rate 11 L 16 16 Blood Pressure 237/114 H 247/114 H 235/111 H Pulse Oximetry 96 95 95 01/08/21 11:45 01/08/21 11:50 01/08/21 11:55 Temperature Pulse Rate 78 85 84 Respiratory Rate 19 23 23 Blood Pressure 232/111 H 230/112 H 236/123 H Pulse Oximetry 95 98 98 01/08/21 12:00 01/08/21 12:01 01/08/21 12:05 Temperature Pulse Rate 83 84 74 Respiratory Rate 17 21 15 Blood Pressure 225/118 H 229/104 H Pulse Oximetry 99 99 97 01/08/21 12:10 01/08/21 12:15 01/08/21 12:20 Temperature Pulse Rate 78 77 77 Respiratory Rate 22 21 22 Blood Pressure 230/109 H 220/105 H 225/109 H Pulse Oximetry 97 96 96 01/08/21 12:25 01/08/21 12:30 01/08/21 12:35 Temperature Pulse Rate 78 78 79 Respiratory Rate 21 21 22 Blood Pressure 220/106 H 220/107 H 217/99 H Pulse Oximetry 95 96 95 01/08/21 12:40 01/08/21 12:45 01/08/21 12:50 Temperature Pulse Rate 80 80 82 Respiratory Rate 20 21 19 Blood Pressure 220/105 H 217/105 H 199/89 H Pulse Oximetry 95 96 95 01/08/21 12:55 01/08/21 13:00 01/08/21 13:05 Temperature Pulse Rate 85 85 86 Respiratory Rate 22 22 20 Blood Pressure 198/91 H 189/88 H 187/86 H Pulse Oximetry 95 94 94 01/08/21 13:10 01/08/21 13:14 01/08/21 13:15 Temperature Pulse Rate 85 85 85 Respiratory Rate 21 21 20 Blood Pressure 191/91 H 182/87 H Pulse Oximetry 95 95 95 01/08/21 13:20 01/08/21 13:25 01/08/21 13:30 Temperature Pulse Rate 86 86 87 Respiratory Rate 20 20 20 Blood Pressure 183/86 H 174/78 H 176/83 H Pulse Oximetry 94 94 95 01/08/21 13:35 01/08/21 13:40 01/08/21 13:45 Temperature Pulse Rate 87 87 87 Respiratory Rate 21 20 20 Blood Pressure 172/78 H 174/81 H 173/79 H Pulse Oximetry 95 95 95 01/08/21 13:50 01/08/21 13:55 01/08/21 14:00 Temperature Pulse Rate 86 86 91 H Respiratory Rate 20 20 23 Blood Pressure 171/79 H 166/78 H 170/87 H Pulse Oximetry 95 95 96 01/08/21 14:05 01/08/21 14:10 01/08/21 14:15 Temperature Pulse Rate 83 84 83 Respiratory Rate 17 18 17 Blood Pressure 166/78 H 163/74 H 161/73 H Pulse Oximetry 95 95 95 01/08/21 14:20 01/08/21 14:25 01/08/21 14:30 Temperature 97.7 F Pulse Rate 86 85 87 Respiratory Rate 15 18 20 Blood Pressure 167/72 H 140/67 Pulse Oximetry 98 96 99 01/08/21 14:57 01/08/21 15:00 01/08/21 15:05 Temperature Pulse Rate 83 83 85 Respiratory Rate 16 17 16 Blood Pressure 151/80 H Pulse Oximetry 98 98 97 01/08/21 15:10 01/08/21 15:15 01/08/21 15:20 Temperature Pulse Rate 83 83 82 Respiratory Rate 16 15 16 Blood Pressure Pulse Oximetry 97 97 97 01/08/21 15:25 01/08/21 15:30 01/08/21 15:35 Temperature Pulse Rate 81 87 89 Respiratory Rate 16 14 18 Blood Pressure Pulse Oximetry 97 99 99 01/08/21 15:40 01/08/21 15:45 01/08/21 15:50 Temperature Pulse Rate 84 82 89 Respiratory Rate 14 17 18 Blood Pressure Pulse Oximetry 99 99 100 01/08/21 15:55 01/08/21 16:00 01/08/21 16:05 Temperature Pulse Rate 83 81 80 Respiratory Rate 18 15 15 Blood Pressure 157/81 H Pulse Oximetry 99 99 99 01/08/21 16:10 01/08/21 16:15 01/08/21 16:20 Temperature Pulse Rate 82 80 80 Respiratory Rate 15 16 15 Blood Pressure Pulse Oximetry 99 98 97 01/08/21 16:25 01/08/21 16:30 01/08/21 16:35 Temperature Pulse Rate 80 79 80 Respiratory Rate 11 L 12 15 Blood Pressure Pulse Oximetry 97 97 97 01/08/21 16:40 01/08/21 16:45 01/08/21 16:50 Temperature Pulse Rate 81 81 82 Respiratory Rate 15 15 17 Blood Pressure Pulse Oximetry 97 97 97 01/08/21 16:55 01/08/21 17:00 01/08/21 17:05 Temperature Pulse Rate 82 83 83 Respiratory Rate 0 L 7 L 0 L Blood Pressure 165/77 H Pulse Oximetry 97 97 97 01/08/21 17:10 01/08/21 17:15 01/08/21 17:20 Temperature Pulse Rate 83 84 97 H Respiratory Rate 0 L 0 L 15 Blood Pressure Pulse Oximetry 97 97 99 01/08/21 17:25 01/08/21 17:30 01/08/21 17:35 Temperature Pulse Rate 99 H 93 H 87 Respiratory Rate 22 26 H 19 Blood Pressure Pulse Oximetry 97 96 96 01/08/21 17:40 01/08/21 17:45 01/08/21 17:50 Temperature Pulse Rate 88 87 90 Respiratory Rate 17 17 19 Blood Pressure Pulse Oximetry 96 96 97 01/08/21 17:55 01/08/21 18:00 01/08/21 18:02 Temperature Pulse Rate 96 H 95 H 102 H Respiratory Rate 19 33 H 20 Blood Pressure 156/76 H Pulse Oximetry 96 94 97 Oxygen Delivery Method Room Air Narrative Exam Narrative: Pleasant gentleman lying in bed in no obvious distress. Patient is awake alert and conversant. He does not recall the events from earlier today other than he fell HEENT: Normocephalic atraumatic extraocular muscles are intact, oropharynx is clear, there has moist mucous membranes, he has poor dentition, neck is supple without adenopathy Lungs: Clear to auscultation Cardiac exam: Regular rate and rhythm normal S1-S2 with a 2/6 systolic ejection murmur Abdomen: Soft nontender nondistended, no hepatosplenomegaly Extremities: No edema Neuro exam: Cranial nerves 2-12 are intact, strength is symmetric and equal, sensations grossly intact Psychiatric exam: Patient is comp appropriate, no hallucinations, no delusions, Objective Labs Result Diagrams: 01/08/21 09:50 01/08/21 09:50 Labs: Laboratory Results - last 24 hr 01/08/21 01/08/21 01/08/21 09:50 09:50 09:50 WBC 8.6 RBC 3.77 L Hgb 10.6 L Hct 31.8 L MCV 84.2 MCH 28.1 MCHC 33.3 RDW 15.8 H Plt Count 170 Neut % (Auto) 71.7 Lymph % (Auto) 21.2 L [place] % (Auto) 5.3 Eos % (Auto) 1.1 L Baso % (Auto) 0.7 Neut # (Auto) 6200 Lymph # (Auto) 1800 [place] # (Auto) 500 Eos # (Auto) 100 Baso # (Auto) 100 PT 12.9 H INR 1.1 APTT 33 Sodium 140 Potassium 4.0 Chloride 108 H Carbon Dioxide 25 BUN 35 H Creatinine 1.52 H Estimated GFR 47.5 L BUN/Creatinine Ratio 23.0 H Glucose 80 Lactate Calcium 9.0 Total Bilirubin 0.3 AST 48 ALT 44 Alkaline Phosphatase 115 Total Creatine Kinase 205 H CK-MB (CK-2) 5.56 H CK-MB (CK-2) Rel Index 2.7 Troponin I 0.020 Total Protein 8.0 Albumin 4.1 Globulin 3.9 Albumin/Globulin Ratio 1.1 Prolactin 13.7 Urine Color Urine Appearance Urine pH Ur Specific [place] Urine Protein Urine Glucose (UA) Urine Ketones Urine Occult Blood Urine Nitrate Urine Bilirubin Urine Urobilinogen Ur Leukocyte Esterase Urine RBC Urine WBC Urine Bacteria Hyaline Casts Urine Sperm Ur Culture Indicated? Nasal Screen MRSA (PCR) Salicylates < 1.0 U Opiates 300ng/mL cut Ur Oxycodone Screen Urine Methadone Screen Acetaminophen < 10 L Ur Barbiturates Screen U Tricyclic Antidepress Ur Phencyclidine Scrn Ur Amphetamines Screen U Methamphetamines Scrn Ur MDMA Scrn (Ecstasy) U Benzodiazepines Scrn Urine Cocaine Screen U Marijuana (THC) Screen Ethyl Alcohol < 10 SARS-CoV-2 (PCR) 01/08/21 01/08/21 01/08/21 09:50 10:38 10:38 WBC RBC Hgb Hct MCV MCH MCHC RDW Plt Count Neut % (Auto) Lymph % (Auto) [place] % (Auto) Eos % (Auto) Baso % (Auto) Neut # (Auto) Lymph # (Auto) [place] # (Auto) Eos # (Auto) Baso # (Auto) PT INR APTT Sodium Potassium Chloride Carbon Dioxide BUN Creatinine Estimated GFR BUN/Creatinine Ratio Glucose Lactate 1.6 Calcium Total Bilirubin AST ALT Alkaline Phosphatase Total Creatine Kinase CK-MB (CK-2) CK-MB (CK-2) Rel Index Troponin I Total Protein Albumin Globulin Albumin/Globulin Ratio Prolactin Urine Color Yellow Urine Appearance Clear Urine pH 6.5 Ur Specific [place] 1.020 Urine Protein 1+ H Urine Glucose (UA) Negative Urine Ketones Negative Urine Occult Blood 2+ H Urine Nitrate Negative Urine Bilirubin Negative Urine Urobilinogen 0.2 Ur Leukocyte Esterase Negative Urine RBC 1-5/hpf Urine WBC None seen Urine Bacteria Few (2-10) H Hyaline Casts 0-1/lpf Urine Sperm Ur Culture Indicated? Cult not indicated Nasal Screen MRSA (PCR) Salicylates U Opiates 300ng/mL cut Positive H Ur Oxycodone Screen Negative Urine Methadone Screen Negative Acetaminophen Ur Barbiturates Screen Negative U Tricyclic Antidepress Negative Ur Phencyclidine Scrn Negative Ur Amphetamines Screen Negative U Methamphetamines Scrn Positive H Ur MDMA Scrn (Ecstasy) Negative U Benzodiazepines Scrn Negative Urine Cocaine Screen Negative U Marijuana (THC) Screen Positive H Ethyl Alcohol SARS-CoV-2 (PCR) 01/08/21 01/08/21 01/08/21 10:38 11:53 15:53 WBC RBC Hgb Hct MCV MCH MCHC RDW Plt Count Neut % (Auto) Lymph % (Auto) [place] % (Auto) Eos % (Auto) Baso % (Auto) Neut # (Auto) Lymph # (Auto) [place]vert # (Auto) Eos # (Auto) Baso # (Auto) PT INR APTT Sodium Potassium Chloride Carbon Dioxide BUN Creatinine Estimated GFR BUN/Creatinine Ratio Glucose Lactate Calcium Total Bilirubin AST ALT Alkaline Phosphatase Total Creatine Kinase CK-MB (CK-2) CK-MB (CK-2) Rel Index Troponin I Total Protein Albumin Globulin Albumin/Globulin Ratio Prolactin Urine Color Urine Appearance Urine pH Ur Specific [place] Urine Protein Urine Glucose (UA) Urine Ketones Urine Occult Blood Urine Nitrate Urine Bilirubin Urine Urobilinogen Ur Leukocyte Esterase Urine RBC Urine WBC Urine Bacteria Hyaline Casts Urine Sperm Ur Culture Indicated? Nasal Screen MRSA (PCR) Negative for mrsa Salicylates U Opiates 300ng/mL cut Ur Oxycodone Screen Urine Methadone Screen Acetaminophen Ur Barbiturates Screen U Tricyclic Antidepress Ur Phencyclidine Scrn Ur Amphetamines Screen U Methamphetamines Scrn Ur MDMA Scrn (Ecstasy) U Benzodiazepines Scrn Urine Cocaine Screen U Marijuana (THC) Screen Ethyl Alcohol SARS-CoV-2 (PCR) Negative Negative Assessment & Plan Assessment & Plan narrative: Impression 1. 55-year-old male admitted to the hospital with hypertensive urgency and hypertensive encephalopathy -patient has been off his medications for an unknown period of time likely leading to elevated blood pressure -patient admits to using methamphetamine recently which is likely contributing -head CT shows no intracranial abnormalities -cervical spine study shows no cervical injury -blood pressure improved nicely on nicardipine drip -will discontinue nicardipine and start his usual home medications, to include lisinopril, and amlodipine 2. Hyperlipidemia -continue atorvastatin 3. History of CVA -continue statin, aspirin, and usual blood pressure medications 4. History of polysubstance abuse -patient will resume his pupils or fen as an outpatient Social issue, patient previously homeless and is currently living with a friend. He has had difficulty obtaining his medications. However he states if he has a prescription he will be able to obtain them. Will ask for social work consultation. Patient will be admitted under observation anticipate discharge home tomorrow
[2021-01-08] MEDS: ACETAMINOPHEN 325 MG TABLET 650 MG PO (18:54)
[2021-01-08] MEDS: AMLODIPINE 5 MG TABLET 10 MG PO (20:49)
[2021-01-08] MEDS: ATORVASTATIN 20 MG TABLET 40 MG PO (20:49)
[2021-01-08] MEDS: lisinopriL 20 MG TABLET 40 MG PO (20:49)
[2021-01-08] MEDS: MELATONIN 3 MG TABLET 6 MG PO (23:37)
[2021-01-08] MEDS: HYDROMORPHONE 1 MG INJ IV (23:37)
[2021-01-09] VITALS (19 sets, daily range): BP systolic 137–183; BP diastolic 72–107; PULSE 62–82; RESP 14–21; TEMP 36.4–37.1; O2SAT 96–99
[2021-01-09] MEDS: HYDROMORPHONE 1 MG INJ IV ×2 (04:10→09:11)
[2021-01-09] MEDS: SODIUM CHLORIDE 0.9% FLUSH 10 ML IV ×2 (04:11→09:11)
[2021-01-09] MEDS: ACETAMINOPHEN 325 MG TABLET 650 MG PO (06:32)
--- NOTE | 2021-01-09 06:48 | PC.NURSE ---
Director Of Housing Note-Patient is A/O x4, fatigued, cooperative. BP 150s/80s to 160s/90s, at 0600 up to 183/93, reported to DIAL PRINTER, order obtained to give 0900 dose of amlodipine 10mg and lisinopril 40mg early, will do when medications are available from pharmacy. IV Dilaudid and PO Tylenol given for headache, SR, afebrile, SpO2 > 94%. No seizures, pads on rails.
[2021-01-09] MEDS: AMLODIPINE 5 MG TABLET 10 MG PO (07:20)
[2021-01-09] MEDS: lisinopriL 20 MG TABLET 40 MG PO (07:21)
[2021-01-09 08:44] LABS: BUN Creatinine Ratio 23.4 (6-22); Blood Urea Nitrogen 36 mg/dL (9-20); Calcium 8.7 mg/dL (8.4-10.2); Carbon Dioxide 25 mmol/L (22-32); Chloride 107 mmol/L (98-107); Estimated Glomerular Filt Rate 46.8 mL/min (>60); Glucose 94 mg/dL (70-100); HEMOLYSIS < 15 (0-50); Sodium 137 mmol/L (137-145)
[2021-01-09] MEDS: ENOXAPARIN 40 MG/0.4 ML SYRINGE SUBCUT (09:10)
[2021-01-09] MEDS: ASPIRIN EC 81 MG TABLET PO (09:10)
[2021-01-09] MEDS: LABETALOL 100 MG TABLET 200 MG PO ×2 (09:10→09:11)
--- NOTE | 2021-01-09 10:58 | P.DS_ITS ---
History of Present Illness History of Present Illness Chief complaint: Fall Narrative: The patient is a 55-year-old male with a history of hypertension, hyperlipidemia, history of substance abuse including methamphetamines and opiates, history of CVA, history of seizure who ran out of his medications this week. The patient was markedly hypertensive. He was found stumbling and confused. The patient was unable to provide any further history other than he does not recall what happened. He was observed to be acting unusual. He was brought into the emergency room. In the emergency room the patient was confused and cannot provide history. He was found to have a laceration on his left lower lip and tongue. Patient does not recall having a seizure recently and feels that he may have lacerated his lip and tongue when falling. In the emergency room he was markedly hypertensive with systolic blood pressures of over 200 diastolic blood pressures over 100. He was started on narcotic pain drip and admitted to the hospital for further evaluation. Patient underwent a head CT in the emergency room which revealed right maxillary sinusitis but no acute intracranial abnormalities. He underwent a cervical spine series which showed no acute fracture. Chest x-ray showed bilateral pneumonia. However the patient denies any fever chills or cough. He has no shortness of breath. White count is normal. Patient is admitted to the hospital for management of his hypertensive urgency. Discharge Providers Provider Date of admission: 01/08/21 13:12 Discharge Date: 01/09/21 Primary care physician: Tyler Spencer Discharge provider: Corinne Bundy MD Summary Hospital Course Discharge Diagnosis: 1. Hypertensive encephalopathy 2. Chronic kidney disease stage 3 3. History of stroke 4 hyperlipidemia 5. Polysubstance abuse Hospital Course: Patient was admitted to the hospital for hypertensive urgency. He was managed on a narcotic pain drip in the ICU. The patient was able to take his usual oral medications. His mentation improved. He had no further confusion. Following day off the nicardipine drip the patient was still hypert ensive with a systolic blood pressure of 180 and diastolic of 96. Labetalol was added to his regimen for improved blood pressure control. The patient was given a prescription for 90 days of blood pressure medications. He will be referred to an outpatient clinic for establishment with a primary care provider. He has no further symptoms. He is deemed appropriate for discharge. And arrangements were made to discharge him home. Status at Discharge Cognitive/behavioral status at discharge: oriented Functional status at discharge: independent ambulation Overall status at discharge: patient is back to baseline Time Spent with Patient Time spent: Less than 30 minutes Exam Vital Signs (past 8 hours): - 01/09/21 03:00 01/09/21 04:00 01/09/21 05:00 Temperature 98.7 F Pulse Rate 71 79 70 Respiratory Rate 17 21 16 Blood Pressure 167/93 H 164/85 H 181/93 H Pulse Oximetry 96 98 98 01/09/21 06:00 01/09/21 07:00 01/09/21 07:17 Temperature 98.2 F Pulse Rate 82 70 71 Respiratory Rate 14 17 15 Blood Pressure 183/93 H 182/107 H Pulse Oximetry 98 99 98 01/09/21 07:21 01/09/21 08:00 01/09/21 09:00 Temperature 98.2 F 98.1 F Pulse Rate 78 70 80 Respiratory Rate 16 17 Blood Pressure 182/107 H 183/90 H 182/90 H Pulse Oximetry 98 99 01/09/21 09:10 01/09/21 09:11 01/09/21 10:00 Temperature 97.7 F Pulse Rate 76 62 Respiratory Rate 15 Blood Pressure 182/90 H 168/90 H Pulse Oximetry 99 Oxygen Delivery Method Room Air Oxygen Flow Rate 0 Narrative Exam Narrative: Pleasant male resting comfortably in no obvious distress Lungs: Clear to auscultation Cardiac exam: Regular rate and rhythm normal S1-S2 Abdomen: Soft nontender nondistended Extremities: No edema Objective Labs Result Diagrams: 01/08/21 09:50 01/09/21 08:23 Labs: Laboratory Results - last 24 hr 01/08/21 01/08/21 01/08/21 10:38 10:38 11:53 Sodium Potassium Chloride Carbon Dioxide BUN Creatinine Estimated GFR BUN/Creatinine Ratio Glucose Calcium Urine RBC 1-5/hpf Urine WBC None seen Urine Bacteria Few (2-10) H Hyaline Casts 0-1/lpf Urine Sperm Ur Culture Indicated? Cult not indicated Nasal Screen MRSA (PCR) SARS-CoV-2 (PCR) Negative Negative 01/08/21 01/09/21 15:53 08:23 Sodium 137 Potassium 4.0 Chloride 107 Carbon Dioxide 25 BUN 36 H Creatinine 1.54 H Estimated GFR 46.8 L BUN/Creatinine Ratio 23.4 H Glucose 94 Calcium 8.7 Urine RBC Urine WBC Urine Bacteria Hyaline Casts Urine Sperm Ur Culture Indicated? Nasal Screen MRSA (PCR) Negative for mrsa SARS-CoV-2 (PCR) PFSH Medical History CVA (cerebral vascular accident) Hypertension Seizure disorder Surgical History History of right inguinal hernia repair Family History Mother CVA (cerebral vascular accident) Father No problems noted. Sister COPD (chronic obstructive pulmonary disease) Social History household members: none Smoking Status: Current every day smoker Discharge Assessment & Plan Assessment and Plan Assessment: 1. Hypertensive urgency 2. Chronic kidney disease stage 3 3. History of stroke 4. Polysubstance abuse 5. Hyperlipidemia Plan of Treatment: Discharge home on medications as prescribed Follow-up with primary care provider as instructed Discharge Plan Discharge Plan Patient Disposition: Home Discharge orders & Medications Prescriptions: New labetalol 100 mg Tablet 200 mg PO BID Qty: 90 RF: 0 atorvastatin [Lipitor] 20 mg Tablet 40 mg PO BEDTIME Qty: 90 RF: 0 lisinopril 20 mg Tablet 40 mg PO DAILY Qty: 90 RF: 0 amlodipine [Norvasc] 5 mg Tablet 10 mg PO DAILY Qty: 90 RF: 0 Continued buprenorphine-naloxone [Suboxone] 8-2 mg film 1 film sublingual TID RF: 0 Discontinued atorvastatin 40 mg tablet 40 mg PO DAILY Qty: 30 RF: 0 lisinopril 20 mg tablet 20 mg PO BID Qty: 60 RF: 0 amlodipine [Norvasc] 5 mg Tablet 5 mg PO BID Qty: 60 RF: 0 aspirin 81 mg tablet,delayed release (DR/EC) 81 mg PO DAILY Qty: 30 RF: 0 Follow up/Referrals: Tyler Spencer [Other] Tyler Spencer [Other] Discharge Health Status Multidrug resistant organism: No MDRO Diet/Activity/Treatments Diet: Low-fat and Low-sodium
--- NOTE | 2021-01-09 12:11 | CM.DANOTE ---
Discharge Plan: Patient is 55 yo male with Medicaid and [facility] insurance, admitted to hospital due to fall and dizziness. Patient was positive for Methamphetamine, THC and Opiates at intake in ED. Patient has history of hypertension, stroke, high blood pressure and does not currently have a PCP, reports trouble accessing medication. vegetable loader met with patient bedside. Patient reported that he was homeless but he is temporarily staying with friends at [address] in [place]. Patient denied concern of substance use and reported that he does not use daily and he is happy patient reported no interest in treatment. Patient reported that he feels safe at home and with the individuals he lives with. Patient reported that he has applied for housing lists in the [facility], [place] but has been unsuccessful and would like a place of his own. vegetable loader discussed [facility] Health Home program, Medicaid transportation and setting patient up with a PCP. Patient agreed to these services. vegetable loader submitted referral for case management at [facility]. FIBERGLASS GRINDER contacted Medicaid transportation and confirmed that patient qualifies for service, FIBERGLASS GRINDER submitted referral for transportation today at discharge. FIBERGLASS GRINDER contacted [facility] in [place] at set up patient with establishing services appt on 01/24/21 at 8:45 AM. Patient will be provided with contact information for Medicaid transportation for future use and for his medical appt with [facility]. Plan: discharge with referral submitted at [facility]. 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 No Advance Directives on File No History Provided By Patient,Medical Record Has Patient been admitted in last 30 No days? Prior Living Arrangements House Household Members none Type of transporation used prior to Public Transportation admit Independent with ADL's Yes Is patient alert and oriented? Yes Comment Patient denied substance abuse concern. vegetable loader referred patient for [facility] case management with Health Home program Barriers to Discharge Yes Comment Lack of transportation. vegetable loader set up Medicaid transportation as patient qualifies. Discharge Plan Home Transportation Arrangement Medicaid transport. Referrals Initiated Other Additional Comment Provided patient Compass brouchure however, reports that he does not need anything . Please Provide Date Initial DC 01/09/21 Assessment Was Performed
--- NOTE | 2021-01-09 14:18 | PC.NURSE ---
Discharge note - Patient discharged at 13:45, patient was assisted off unit in wheelchair, patient had all belongings with him. Vital signs stable at this time. New medications reviewed with patient and education materials for this medications provided. 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 Patient has good understanding of medications and next appointments. Patient has no questions for this RN. Discharge instructions were given to patient as well as community resources. Ride was arranged for patient and patient knows to pickler helper medications from pharmacy.
== END 2021-01-09 13:45 | disposition home or self-care (01) ==
LOC: ED 11:44 → AC 13:40 → ICU 01-09 10:12 → AC 01-09 11:48 → ICU 01-09 11:49
PROVIDERS: Admitting Provider Internal Medicine; Emergency Provider Emergency Medicine; Referring Provider Emergency Medicine; Visit Provider Internal Medicine
DX: I67.4 Hypertensive encephalopathy (principal); Z86.73 Personal history of transient ischemic attack (TIA), and cerebral infarction without residual deficits; G40.909 Epilepsy, unspecified, not intractable, without status epilepticus; F17.210 Nicotine dependence, cigarettes, uncomplicated; E78.5 Hyperlipidemia, unspecified; I12.9 Hypertensive chronic kidney disease with stage 1 through stage 4 chronic kidney disease, or unspecified chronic kidney disease; N18.30 Chronic kidney disease, stage 3 unspecified; F19.10 Other psychoactive substance abuse, uncomplicated; Z20.822 Contact with and (suspected) exposure to COVID-19
CPT/HCPCS: 36415; 70450; 71045; 72125; 80048; 80053; 80305; 80320; 80329; 81001; 82550; 82553; 83605; 84146; 84484; 85025; 85610; 85730; 87635; 87797; 93005; 96361; 96365; 96366; 96372; 96375; 99285; C9803; G0378; G0480; J1170; J1650; J2270